=== PATIENT | male | born 1975 | race Caucasian/White ===

== ENCOUNTER → 2020-11-25 14:13 | Outpatient (BNVA) | payer OTHER, SELFPAY | PROVIDERS: Family Provider Family Medicine; PCP Family Medicine; Visit Provider Registered Nurse Neonatal Intensive Care | DX: N39.0 Urinary tract infection, site not specified (principal); N12 Tubulo-interstitial nephritis, not specified as acute or chronic; R11.0 Nausea | CPT/HCPCS: 81000 ==

== ENCOUNTER 2020-12-16 14:53 | Observation (INO) | payer OTHER, SELFPAY ==
[2020-12-16] VITALS (7 sets, daily range): BP systolic 129–189; BP diastolic 84–98; PULSE 88–110; RESP 18–20; TEMP 36.9–37.1; O2SAT 93–94; BMI 38.5
[2020-12-16 15:15] LABS: Glucose Urine UA Norm (Normal); Protein Urine 1+ (Negative); Urine Appearance Cloudy (CLEAR); Urine Color Yellow (Yellow); pH Urine 7 (5-7)
[2020-12-16 15:16] LABS: Add Urine Microscopic? YES; Bilirubin Urine Neg (Negative); Blood Urine 2+ (Negative); Ketones Urine Negative (Negative); Leukocyte Esterase Urine 2+ (Negative); Nitrate Urine Positive (Negative); Urobilinogen Urine Norm (Negative)
[2020-12-16 15:21] LABS: Bacteria Urine 2+ /hpf; Squamous Epithelial Cell Urine 0-4 /hpf (0-5); WBC Urine TOO NUMEROUS TO CNT /hpf (0-5)
[2020-12-16 15:22] LABS: Add Urine Culture? Yes
[2020-12-16 15:47] LABS: Basophils # 0.1 10^3/uL (0.0-0.1); Basophils % 0.3 %; Eosinophils # 0.1 10^3/uL (0.0-0.8); Eosinophils % 0.3 %; Hematocrit 46.5 % (42.0-52.0); Hemoglobin 15.7 g/dL (11.7-16.6); Lymphocytes # 3.2 10^3/uL (0.8-4.8); Lymphocytes % 11.9 %; Mean Corpuscular HGB Conc 33.8 g/dL (30.0-36.0); Mean Corpuscular Hemoglobin 28.9 pg (28.0-34.0); Mean Corpuscular Volume 85.5 fL (80-94); Mean Platelet Volume 10.1 fL (7.4-10.4); Monocytes # 1.6 10^3/uL (0.2-0.9); Neutrophils # 21.62 10^3/uL (1.8-7.7); Neutrophils % 80.9 %; Nucleated Red Blood Cells % 0 %; Platelet Count 331 10^3/cmm (130-400); Red Blood Count 5.44 10^6/uL (4.1-5.3); Red Cell Distribution Width 13.1 % (12.1-15.1); White Blood Count 26.7 10^3/uL (4.0-10.0)
[2020-12-16 16:13] LABS: Anion Gap 15.8 (5-19); Blood Urea Nitrogen 12 mg/dL (6-20); Calcium 9.1 mg/dL (8.5-10.5); Carbon Dioxide 30 mmol/L (22-29); Chloride 94 mmol/L (98-107); Creatinine Clr Calc Pharmacy 155.3066; Glomerular Filtration Rate 92.1 mL/min (90-130); Glucose 170 mg/dL (65-115); Osmolality Calculated 288 mOsm/kg (285-295); Sodium 137 mmol/L (136-145)
[2020-12-16 16:19] LABS: Potassium 2.8 mmol/L (3.5-5.1)
--- NOTE | 2020-12-16 16:28 | CTR_ITS ---
PROCEDURE INFORMATION: Exam: CT Abdomen And Pelvis Without Contrast Exam date and time: 12/16/2020 4:29 PM Age: 45 years old Clinical indication: Abdominal pain; Flank; Other: Bilateral; Prior surgery; Surgery type: Hernia; Additional info: Flank pain TECHNIQUE: Imaging protocol: Computed tomography of the abdomen and pelvis without contrast. Radiation optimization: All CT scans at this facility use at least one of these dose optimization techniques: automated exposure control; mA and/or kV adjustment per patient size (includes targeted exams where dose is matched to clinical indication); or iterative reconstruction. COMPARISON: No relevant prior studies available. RADIATION DOSE METRICS: Total DLP (mGy-cm): 2019.72 FINDINGS: Liver: Simple hepatic cyst in the dome 2 cm diameter. No liver enlargement. Gallbladder and bile ducts: Normal. No calcified stones. No ductal dilation. Pancreas: Normal. No ductal dilation. Spleen: Normal. No splenomegaly. Adrenal glands: Incidental circumscribed mass of the left adrenal gland with low density Hounsfield units averaging significantly less than 10. The lesion measures 2.6 cm x 2.4 cm. Kidneys and ureters: Bilateral nonobstructing kidney stones greater on left than right. Incidental finding of small simple left renal cortical cyst. Negative for hydronephrosis or perinephric inflammation. Stomach and bowel: Unremarkable. No obstruction. No mucosal thickening. Appendix: No evidence of appendicitis. Intraperitoneal space: Unremarkable. No free air. No significant fluid collection. Vasculature: Unremarkable. No abdominal aortic aneurysm. Lymph nodes: Unremarkable. No enlarged lymph nodes. Urinary bladder: Unremarkable as visualized. Reproductive: Unremarkable as visualized. Bones/joints: Unremarkable. No acute fracture. Soft tissues: Focal surgical changes of left groin soft tissues. Small fat containing umbilical hernia. Lumbar paraspinal muscles are symmetric. CT/CT abdomen pelvis wo con [id number] IMPRESSION: 1. Negative for abdominopelvic acute pathology. 2. Incidental finding of a small left adrenal gland mass with noncontrast CT features consistent with benign adrenal adenoma. No dedicated follow-up is recommended. 3. Simple liver cyst. 4. Simple left renal cyst. 5. Bilateral kidney stones without obstruction. COMMENTS: Consistent with the [employer]'s Incidental Findings Committee white paper (J Am Alissa Radiol 2018): Any incidental renal lesion less than 1 cm or classified as too small to characterize, or any incidental cystic renal lesion characterized as simple-appearing, is likely benign. No follow-up imaging is recommended for these lesions per consensus recommendations based on imaging criteria. Radiation Dose CTDIVOL = (mGy): DLP = 2020.72 (mGy-cm)
--- NOTE | 2020-12-16 16:37 | ED_ITS ---
HPI - Male Genitourinary General: Chief complaint: Urogenital-Male Stated complaint: Poss Kidney Stones, Trouble Urinating Time Seen by Provider: 12/16/20 16:02 History of Present Illness: HPI Narrative: This patient is a 45-year-old male who presents to the emergency department complaint of bilateral flank pain. Patient does have a long history of back issues but states this is different. Last week the patient was diagnosed with a kidney infection was started on Cipro and given nausea medication. Tramadol patient states he seems to be getting worse patient denies fever. The medical evaluation treat as needed Duration: constant Radiation: right flank and left flank Severity: moderate Quality: aching and sharp Exacerbating factors: none Associated symptoms: Deny dysuria, nausea or vomiting Review of Systems General: Reports: 10 or more systems reviewed and unremarkable except in HPI and below Const: Denies: fever(s), chills, body aches or fatigue Eyes: Denies: change in vision or blurry vision ENMT: Denies: throat pain, hoarseness or mouth pain Card: Denies: chest pain, palpitations, irregular heart rhythm, edema, swelling of feet/ankles or lightheadedness Resp: Denies: dyspnea, productive cough, non-productive cough, wheezing or pain on inspiration GI: Reports: abdominal pain; Denies: nausea or vomiting : Reports: flank pain; Denies: dysuria, urinary frequency, urinary urgency or urinary hesitancy Musc: Denies: neck pain, back pain, extremity pain, extremity swelling, joint pain, joint swelling, joint redness, joint warmth or limited range of motion Skin/Breast: Denies: rash, pruritus, erythema or skin tenderness Neuro: Denies: headache(s), numbness in extremities or weakness in extremities Psych: Denies: anxiety or depression [facility] ED PFSH: Medical History (Updated 12/16/20 @ 17:36 by Wilmer Devlin MD) Anxiety and depression Constipation due to opioid therapy Obesity (BMI 35.0-39.9 without comorbidity) Pyelonephritis Uncontrolled hypertension Surgical History (Updated 11/28/20 @ 09:39 by Chava Paniagua MD) H/O hernia repair Family History (Updated 11/28/20 @ 09:15 by Becca Judge LPN) Other Cancer Diabetes Hypertension Social History (Updated 11/28/20 @ 09:16 by STEPHANY Craig Smoking and tobacco status: current every day smoker cigarettes Packs smoked per day: 1.5 Alcohol intake: current Alcohol intake frequency: 0-2 Drinks per Day Marital status: Number of children: 4 Number of grandchildren: 0 Current occupational status: employed Physical Exam Const: COMMON NORMALS: no acute distress, average body habitus, patient oriented x3, no limitations, healthy appearing, alert and well nourished HENMT: COMMON NORMALS: normocephalic, atraumatic, external ears normal, EAC's normal, TM's normal bilaterally, Normal external nose present and Normal nasal mucous membranes and turbinates present HEAD & SCALP: normocephalic and atraumatic NOSE: Normal external nose present and Normal nasal mucous membranes and turbinates present EXTERNAL EAR: Yes external ears normal EXTERNAL AUDITORY CANAL: EAC's normal TYMPANIC MEMBRANE: TM's normal bilaterally Neck/C-Spine: COMMON NORMALS: full ROM, no lymphadenopathy, supple, no meningeal signs, no JVD, Thyroid normal and No carotid bruits THYROID: Thyroid normal Chest: COMMONS NORMALS: normal inspection of the chest, normal palpation of entire chest wall, normal inspection of the breasts and normal palpation of the breasts Breast/axilla inspection: Yes normal inspection of the breasts BREAST/AXILLA PALPATION: Yes normal palpation of the breasts Resp: COMMON NORMALS: normal respiratory effort, No retractions, No use of accessory muscles, clear to auscultation bilaterally and percussion normal AUSCULTATION: clear to auscultation bilaterally PERCUSSION: percussion normal Cardio: COMMON NORMALS: no JVD, regular rate, regular rhythm, S1 normal heart sound present, S2 normal heart sound present, No gallops present (Cardio), No clicks present (Cardio), No murmurs present (Cardio), No rub (Cardio) and Peripheral pulses 2+ throughout RATE: regular rate RHYTHM: regular rhythm HEART SOUNDS: S1 normal heart sound present and S2 normal heart sound present PERIPHERAL PULSES: Peripheral pulses 2+ throughout GI: COMMON NORMALS: Normal to inspection, nondistended, normoactive bowel sounds present, non-tender, No hepatosplenomegaly present, no masses and no bruits PALPATION: Yes No hepatosplenomegaly present : COMMON NORMALS: No no CVA tenderness BLADDER/KIDNEY EXAM: No no CVA tenderness and Yes CVA tenderness on the right, on the left and bilateral Back/Pelvis: COMMON NORMALS: thoracic and lumbar spine normal to inspection, no thoracic nor lumbar tenderness, thoraco-lumbar ROM normal and straight leg raise negative bilaterally; negative for no CVA tenderness GENERAL BACK: Yes CVA tenderness Extremity: COMMON NORMALS: normal to inspection, full ROM, capillary refill normal, no joint enlargement, no clubbing, cyanosis or edema, no calf tenderness and no pedal edema Neuro: COMMON NORMALS: patient oriented x3 SENSORIUM/ORIENTATION: Yes alert MENINGEAL SIGNS: Yes no meningeal signs Course Reevaluation(s): Reevaluation #1: I did discuss at length with patient and family about findings and concerns. Patient will have an IV antibiotics continued. And will give additional pain medication. Patient will have an in and out cath to see if we can get more urine out of the patient. Concerning for possible an outlet obstruction causing urinary tract infection in this patient. Patient states that he is agreeable to be admitted Time: 17:34 Consultations: Consultation #1: I did discuss at length with Dr. Nagel hospitalist who agrees with current assessment and plan. She will continue IV antibiotics. She will see patient write additional orders Time: 17:33 Vital Signs: Vital signs: Vital Signs Temperature 98.7 F 12/16/20 19:22 Pulse Rate 88 12/16/20 19:22 Respiratory Rate 18 12/16/20 19:22 Blood Pressure 152/98 12/16/20 19:22 Pulse Oximetry 94 12/16/20 19:22 MDM - Male MDM Narrative: Medical decision making narrative: This patient is a 45-year-old male who presents to the emergency department complaint of bilateral flank pain. Patient does have a long history of back issues but states this is different. Last week the patient was diagnosed with a kidney infection was started on Cipro and given nausea medication. Tramadol patient states he seems to be getting worse patient denies fever. The medical evaluation treat as needed I did discuss at length with patient and family about findings and concerns. Patient will have an IV antibiotics continued. And will give additional pain medication. Patient will have an in and out cath to see if we can get more urine out of the patient. Concerning for possible an outlet obstruction causing urinary tract infection in this patient. Patient states that he is agreeable to be admitted I did discuss at length with Dr. Nagel hospitalist who agrees with current assessment and plan. She will continue IV antibiotics. She will see patient write additional orders Medical Records: Attestation: I reviewed the patient's medical records. Lab Data: Attestation: I reviewed the patient's lab results. Labs: Lab Results 12/16/20 12/16/20 12/16/20 Range/Units 15:05 15:26 15:26 WBC 26.7 H (4.0-10.0) 10^3/ uL RBC 5.44 H (4.1-5.3) 10^6/u L Hgb 15.7 (11.7-16.6) g/dL Hct 46.5 (42.0-52.0) % MCV 85.5 (80-94) fL MCH 28.9 (28.0-34.0) pg MCHC 33.8 (30.0-36.0) g/dL RDW 13.1 (12.1-15.1) % Plt Count 331 (130-400) 10^3/c mm MPV 10.1 (7.4-10.4) fL Neut % (Auto) 80.9 % Lymph % (Auto) 11.9 % Maries % (Auto) 6.0 % Eos % (Auto) 0.3 % Baso % (Auto) 0.3 % Neut # (Auto) 21.62 H (1.8-7.7) 10^3/u L Lymph # (Auto) 3.2 (0.8-4.8) 10^3/u L Maries # (Auto) 1.6 H (0.2-0.9) 10^3/u L Eos # (Auto) 0.1 (0.0-0.8) 10^3/u L Baso # (Auto) 0.1 (0.0-0.1) 10^3/u L Nucleated RBC % (a uto) 0 % Nucleated RBCs # 0.0 /100WBC Sodium 137 (136-145) mmol/L Potassium 2.8 L* (3.5-5.1) mmol/L Chloride 94 L (98-107) mmol/L Carbon Dioxide 30 H (22-29) mmol/L Anion Gap 15.8 (5-19) BUN 12 (6-20) mg/dL Creatinine 0.9 (0.7-1.2) mg/dL GFR Calculation 92.1 (90-130) mL/min Glucose 170 H (65-115) mg/dL Calculated Osmolal ity 288 (285-295) mOsm/k g Calcium 9.1 (8.5-10.5) mg/dL Urine Color Yellow (Yellow) Urine Appearance Cloudy (CLEAR) Urine pH 7 (5-7) Ur Specific Gravit y 1.010 (1.005-1.030) Urine Protein 1+ H (Negative) Urine Glucose (UA) Norm (Normal) Urine Ketones Negative (Negative) Urine Blood 2+ H (Negative) Urine Nitrate Positive H (Negative) Urine Bilirubin Neg (Negative) Urine Urobilinogen Norm (Negative) mg/dL Ur Leukocyte Bernie ase 2+ H (Negative) Urine RBC 5-10 H (0-2) /hpf Urine WBC Too numerous to c nt H (0-5) /hpf Ur Squamous Epith Cells 0-4 H (0-5) /hpf Amorphous Sediment Not Reportable Urine Bacteria 2+ H (NONE) /hpf Imaging Data: CT Abd/Pel: Attestation: I personally reviewed and interpreted this imaging study as follows: Radiologist's impression: IMPRESSION: 1. Negative for abdominopelvic acute pathology. 2. Incidental finding of a small left adrenal gland mass with noncontrast CT features consistent with benign adrenal adenoma. No dedicated follow-up is recommended. 3. Simple liver cyst. 4. Simple left renal cyst. 5. Bilateral kidney stones without obstruction. Discharge Plan Discharge Patient Disposition: Placed in Observation Admit Provider: Sarah Nagel Clinical Impression: Pyelonephritis Coding Level of Care Code ED Interlocking Machine Operator for g Fwd Exam Comprehensive
--- NOTE | 2020-12-16 16:45 | PC.PHAR ---
pt states he takes care of his own medications-pt states he finished cipro last week-pt states he took half of a tab of a norco today 12/16/20 that was one of his old rxs and is unsure of the mg-pt had rx written on 11/28/20 for docusate 250mg bid but states he never got-pt states he took ultram 12/15/20 and that it doesnt work
[2020-12-16] MEDS: potassium chloride ER 20 mEq Tablet PO (16:47)
[2020-12-16] MEDS: ketorolac 30 mg/mL INJ IVP (16:48)
[2020-12-16] MEDS: cefTRIAXone 1,000 MG in sodium chloride 0.9% (plus) 50 ML 100 MG IV (16:48)
[2020-12-16] MEDS: lactated ringers 1,000 ML 999 ML IV (16:48)
[2020-12-16] MEDS: morphine 4 mg/mL SDV 1 mL IVP (17:57)
--- NOTE | 2020-12-16 19:21 | XRR_ITS ---
PROCEDURE INFORMATION: Exam: XR Chest Exam date and time: 12/16/2020 7:41 PM Age: 45 years old Clinical indication: Fever; Additional info: Fever. Source evaluation TECHNIQUE: Imaging protocol: XR of the chest. Views: 1 view. COMPARISON: CR Chest 2 views* [id number] 01/15/2015 1:39 PM FINDINGS: Lungs: No consolidation. Streaky atelectasis noted in the right lung base. No pleural effusion or pneumothorax. Pleural spaces: See Lungs finding. Heart/Mediastinum: Stable cardiomediastinal silhouette. Bones/joints: Unremarkable. XR/XR chest 1V portable [id number] IMPRESSION: No evidence of active cardiopulmonary disease.
--- NOTE | 2020-12-16 19:26 | PM.HP ---
Providers/Chief Complaint Admitting Physician: Sarah Nagel MD Primary Care Provider: Chava Paniagua MD Chief Complaint: Poss Kidney Stones, Trouble Urinating History of Present Illness Ethan Nickerson is a 45 year old male with PMH as noted below with recent history of pyelonephritis in mid november treated as outpatient with 2 weeks of empiric fluoroquinolones. HE presnted today with burning micturition, back pain, leukocytosis of ~25K and is being admitted due to concern for recurrent pyelonephritis Review of Systems General: Reports: 10 or more systems reviewed and unremarkable except in HPI and below Const: Denies: fever(s), chills or body aches Eyes: Denies: change in vision, blurry vision or photophobia ENMT: Reports: hoarseness; Denies: throat pain, enlarged tonsils, odynophagia or nasal congestion Card: Denies: chest pain, palpitations, irregular heart rhythm, edema, swelling of feet/ankles, lightheadedness, pre-syncope, dyspnea on exertion or orthopnea Resp: Denies: dyspnea, productive cough, non-productive cough, wheezing, stridor, pain on inspiration, change in phlegm color, hemoptysis or chest congestion GI: Denies: abdominal pain, nausea, vomiting, hematemesis, coffee ground emesis, dysphagia, heartburn, diarrhea, constipation, GI cramping, change in stool character, hematochezia or melena : Denies: flank pain, dysuria, urinary frequency, urinary urgency, urinary hesitancy or hematuria Musc: Denies: neck pain, back pain, extremity pain, joint swelling, joint warmth or deformity Neuro: Denies: headache(s), numbness in extremities, weakness in extremities, sensory changes, difficulty walking, frequent falls, dizziness, vertigo, behavioral changes, Slurred speech present or seizure-like activity Psych: Denies: anxiety, depression, suicidal ideation or homicidal ideation Endo: Denies: polyuria, polydipsia, tired all the time, cold intolerance or hot flashes Leonel/Lymph: Denies: easy bruising or easy bleeding Medications/Allergies Home Medications Medication Instructions Recorded Confirmed Last Taken Type ondansetron HCl 4 mg tablet 4 mg PO Q6H PRN #20 tab 11/25/20 12/16/20 Unknown Rx tramadol 50 mg tablet 50 mg PO Q6H #20 tab 11/25/20 12/16/20 12/15/20 Rx 100 mg [place] See Rx Instructions .ROUTE .COMPLEX 12/16/20 12/16/20 12/16/20 05:00 History lisinopril-hydrochlorothiazide 1 tab PO QAM 12/16/20 12/16/20 12/16/20 10:00 History naproxen sodium [Aleve] 440 mg PO PRN 12/16/20 12/16/20 Unknown History sertraline 100 mg PO QAM 12/16/20 12/16/20 12/16/20 History Allergies Allergy/AdvReac Type Severity Reaction Status Date / Time codeine Allergy rash Verified 12/16/20 16:39 Penicillins Allergy rash Verified 12/16/20 16:39 PFSH Acute PFSH: Medical History Anxiety and depression Constipation due to opioid therapy Obesity (BMI 35.0-39.9 without comorbidity) Pyelonephritis Uncontrolled hypertension Surgical History H/O hernia repair Family History Other Cancer Diabetes Hypertension Social History Smoking and tobacco status: current every day smoker cigarettes Packs smoked per day: 1.5 Alcohol intake: current Alcohol intake frequency: 0-2 Drinks per Day Marital status: Number of children: 4 Number of grandchildren: 0 Current occupational status: employed Vitals/I&O/Wt Last Vital Signs Temp 98.5 F 12/16/20 15:43 Pulse 90 12/16/20 18:45 Resp 20 H 12/16/20 18:45 BP 129/90 12/16/20 18:45 Pulse Ox 94 12/16/20 18:45 12/16/20 12/16/20 12/16/20 06:59 14:59 22:59 Intake Total 1050 / 1050 Balance 1050 / 1050 Weight last 48 hrs Weight 136.078 kg Physical Exam Narrative: EXAM NARRATIVE: General: No acute distress, AO x3 HEENT: PERRLA, pupils bilaterally equal and reactive, pallors not present Chest: Normal vesicular breath sounds, no added sounds, equal good air entry bilaterally CVS: S1-S2 regular, no murmurs, no tachycardia, no gallops, no rubs Abdomen: Soft, nontender, no organomegaly, bowel sounds present Neuro: No focal deficits, no facial deformity, AO x3, power 5/5 in all limbs Data : 12/17/20 05:01 12/17/20 05:01 Micro: Microbiology 12/16/20 16:48 Blood Culture - Preliminary Blood SPECIMEN COLLECTED 12/16/20 16:35 Blood Culture - Preliminary Blood SPECIMEN COLLECTED A&P Assessment and plan (1) Pyelonephritis: recent pyelonephritis treated empirically Recurrent symptom stoday UA+, urine cx pending No recent urine cx available in system CT abdomen without any obstruction Odd for 45 year old male with normal underlying anatomy to have recurrent episodes of pyelonephritis in close succession - concerned about possible prostatitis as the underlying cause of persisting symptoms. Check urine GC/Chlamydia, HIV screen, diabetes screen Status: Acute Attestations Medical Necessity Statement*: anticipate less than 2 midnight stay for iv abx, cultures Coding Level of Care Code Acute Ethnic Studies Professor for g Fwd Diagnoses Pyelonephritis N12
[2020-12-16] MEDS: dextrose 5%-sod chloride 0.45% 1,000 ML 75 ML IV (20:57)
--- NOTE | 2020-12-16 21:06 | PC.NURSE ---
Addendum entered by Velia Best RN 12/16/20 21:08: Asked the pt if he had any cigarettes or a car mover on him and he said that his had them. Original Note: Smoking Policy: During admission assessment the pt stated that he was going to sneak out later for a smoke . Educated the pt on the hospital non-smoking policy. Pt verbalized understanding. Offered a nicotine patch and he accepted.
[2020-12-16] MEDS: HYDROcodone-acetaminophen 5-325 mg Tablet 1 TAB PO (22:25)
[2020-12-16] MEDS: nicotine 21 mg Patch 1 PATCH TRANSDERMA (22:25)
[2020-12-16] MEDS: lidocaine 1% 5 ML in potassium chloride premix 100 ML 25 ML IV (23:39)
[2020-12-17] VITALS (11 sets, daily range): BP systolic 158–177; BP diastolic 95–120; PULSE 73–87; RESP 1–18; TEMP 36.3–37; O2SAT 93–96
[2020-12-17 05:41] LABS: Basophils # 0.1 10^3/uL (0.0-0.1); Basophils % 0.5 %; Eosinophils # 0.3 10^3/uL (0.0-0.8); Eosinophils % 1.8 %; Hematocrit 42.7 % (42.0-52.0); Lymphocytes % 23.4 %; Mean Corpuscular HGB Conc 32.8 g/dL (30.0-36.0); Mean Corpuscular Hemoglobin 29.3 pg (28.0-34.0); Mean Corpuscular Volume 89.3 fL (80-94); Mean Platelet Volume 10.4 fL (7.4-10.4); Monocytes # 1.2 10^3/uL (0.2-0.9); Monocytes % 7.1 %; Neutrophils # 11.34 10^3/uL (1.8-7.7); Neutrophils % 66.7 %; Nucleated Red Blood Cells % 0 %; Platelet Count 269 10^3/cmm (130-400); Red Blood Count 4.78 10^6/uL (4.1-5.3); Red Cell Distribution Width 13.2 % (12.1-15.1)
[2020-12-17 06:04] LABS: Alanine Aminotransferase 10 U/L (0-41); Albumin Level 3.4 g/dL (3.5-5.2); Alkaline Phosphatase 79 IU/L (40-130); Anion Gap 11.1 (5-19); Aspartate Amino Transferase 10 U/L (0-40); Blood Urea Nitrogen 15 mg/dL (6-20); Calcium 8.5 mg/dL (8.5-10.5); Carbon Dioxide 31 mmol/L (22-29); Chloride 98 mmol/L (98-107); Glomerular Filtration Rate 105.5 mL/min (90-130); Glucose 201 mg/dL (65-115); Osmolality Calculated 291 mOsm/kg (285-295); Potassium 3.1 mmol/L (3.5-5.1); Sodium 137 mmol/L (136-145); Total Bilirubin 0.3 mg/dL (0.15-1.2); Total Protein 6.4 g/dL (6.6-8.7)
[2020-12-17 06:13] LABS: HIV 1 & 2 Antibody Non-Reactive (Non-Reactiv); HIV 1 & 2 Antigen Non-Reactive (Non-Reactiv)
--- NOTE | 2020-12-17 07:42 | PC.NURSE ---
Dr. Nagel notified of patients manual blood pressure of 177/110. Orders received to start home blood pressure medication. Medication given
[2020-12-17] MEDS: lisinopril 20 mg Tablet PO (07:59)
[2020-12-17] MEDS: hydroCHLOROthiazide 25 mg Tablet 12.5 MG PO (07:59)
[2020-12-17] MEDS: nicotine 21 mg Patch 1 PATCH TRANSDERMA (08:01)
[2020-12-17] MEDS: HYDROcodone-acetaminophen 5-325 mg Tablet 1 TAB PO ×2 (10:51→19:55)
[2020-12-17] MEDS: dextrose 5%-sod chloride 0.45% 1,000 ML 75 ML IV (10:51)
--- NOTE | 2020-12-17 11:31 | P.PN_ITS ---
Subjective Subjective: Interval history: Leukocytosis reducing to 17 today, afberil, hemodynamically stable, urine cx pending, uncontrolled BP at 170/120 today in spite of lisinopril-HCTZ Medications: Reviewed: Yes Vitals/I&O/Wt Last Vital Signs Temp 97.9 F 12/17/20 11:16 Pulse 76 12/17/20 11:16 Resp 17 12/17/20 11:16 BP 160/110 12/17/20 08:26 Pulse Ox 95 12/17/20 11:16 12/16/20 12/17/20 12/17/20 22:59 06:59 14:59 Intake Total 1050 / 1050 1225 / 2275 150 / 150 Output Total 200 / 200 600 / 800 1800 / 1800 Balance 850 / 850 625 / 1475 -1650 / -1650 Weight last 48 hrs Weight 136.078 kg Physical Exam Narrative: EXAM NARRATIVE: General: No acute distress, AO x3 HEENT: PERRLA, pupils bilaterally equal and reactive, pallors not present Chest: Normal vesicular breath sounds, no added sounds, equal good air entry bilaterally CVS: S1-S2 regular, no murmurs, no tachycardia, no gallops, no rubs Abdomen: Soft, nontender, no organomegaly, bowel sounds present Neuro: No focal deficits, no facial deformity, AO x3, power 5/5 in all limbs Data : 12/17/20 05:01 12/17/20 05:01 Micro: Microbiology 12/16/20 16:48 Blood Culture - Preliminary Blood SPECIMEN COLLECTED 12/16/20 16:35 Blood Culture - Preliminary Blood SPECIMEN COLLECTED A&P Assessment and plan (1) Pyelonephritis: recent pyelonephritis treated empirically recently Currently on empiric ceftriaxone, pending urine cultue No recent urine cx available in system CT abdomen without any obstruction Odd for 45 year old male with normal underlying anatomy to have recurrent episodes of pyelonephritis in close succession -B/L non obstructing kidney stones noted, concerned about antibiotic resistance to fluoroquinolones vs possible prostatitis as the underlying cause of persisting symptoms. urine GC/Chlamydia non reactive HIV screen, diabetes screen Status: Acute (2) Uncontrolled hypertension: Add amlodipine 10mg po daily, starting now Status: Acute Attestations Medical Necessity Statement*: awaiting urine culture results to ascertain choice of po antibiotics prior to discharge home. Coding Level of Care Code Acute Human Resource Assistant for g Fwd Diagnoses Pyelonephritis N12 Uncontrolled hypertension I10
--- NOTE | 2020-12-17 11:40 | PC.NURSE ---
Dr. Nagel notified that patient's blood pressure is 170/100 manually. No new orders received.
[2020-12-17] MEDS: potassium chloride ER 20 mEq Tablet 40 MEQ PO (12:03)
[2020-12-17] MEDS: TRAMadol 50 mg Tablet PO (14:53)
[2020-12-17] MEDS: amlodipine 10 mg Tablet PO (16:02)
[2020-12-17] MEDS: ibuprofen 800 mg tablet PO (16:05)
[2020-12-17] MEDS: cefTRIAXone 1,000 MG in sodium chloride 0.9% (plus) 50 ML 100 MG IV (16:06)
[2020-12-17 16:21] LABS: Estmated Average Glucose 154
--- NOTE | 2020-12-17 19:21 | PC.NURSE ---
Report to Crissy FORTUNE at this time.
[2020-12-18] MEDS: HYDROcodone-acetaminophen 5-325 mg Tablet 1 TAB PO ×2 (02:39→12:40)
[2020-12-18 03:21] VITALS: BP 157/94; PULSE 67; RESP 18; TEMP 36.4; O2SAT 95
[2020-12-18] MEDS: sertraline 100 mg Tablet PO (06:03)
[2020-12-18 06:09] LABS: Basophils # 0.1 10^3/uL (0.0-0.1); Eosinophils # 0.5 10^3/uL (0.0-0.8); Eosinophils % 4.5 %; Hematocrit 44.6 % (42.0-52.0); Hemoglobin 14.5 g/dL (11.7-16.6); Lymphocytes # 3.9 10^3/uL (0.8-4.8); Lymphocytes % 36.8 %; Mean Corpuscular HGB Conc 32.5 g/dL (30.0-36.0); Mean Corpuscular Hemoglobin 28.9 pg (28.0-34.0); Mean Platelet Volume 10.1 fL (7.4-10.4); Monocytes # 0.8 10^3/uL (0.2-0.9); Monocytes % 7.9 %; Neutrophils # 5.17 10^3/uL (1.8-7.7); Neutrophils % 49.2 %; Nucleated Red Blood Cells % 0 %; Platelet Count 273 10^3/cmm (130-400); Red Blood Count 5.01 10^6/uL (4.1-5.3); White Blood Count 10.5 10^3/uL (4.0-10.0)
[2020-12-18 06:28] LABS: Alanine Aminotransferase 14 U/L (0-41); Albumin Level 3.4 g/dL (3.5-5.2); Alkaline Phosphatase 68 IU/L (40-130); Anion Gap 12.7 (5-19); Aspartate Amino Transferase 11 U/L (0-40); Blood Urea Nitrogen 10 mg/dL (6-20); Calcium 8.6 mg/dL (8.5-10.5); Carbon Dioxide 30 mmol/L (22-29); Chloride 102 mmol/L (98-107); Globulin 3.2 g/dL (1.3-4.6); Glucose 112 mg/dL (65-115); Osmolality Calculated 292 mOsm/kg (285-295); Potassium 3.7 mmol/L (3.5-5.1); Sodium 141 mmol/L (136-145); Total Bilirubin 0.4 mg/dL (0.15-1.2); Total Protein 6.6 g/dL (6.6-8.7)
[2020-12-18 07:16] VITALS: BP 180/128; PULSE 75; RESP 16; TEMP 36.4; O2SAT 95
[2020-12-18] MEDS: hydroCHLOROthiazide 25 mg Tablet 12.5 MG PO (08:19)
[2020-12-18] MEDS: amlodipine 10 mg Tablet PO (08:19)
[2020-12-18] MEDS: lisinopril 20 mg Tablet PO (08:19)
[2020-12-18] MEDS: famotidine 20 mg Tablet PO (08:19)
[2020-12-18] MEDS: nicotine 21 mg Patch 1 PATCH TRANSDERMA (08:20)
[2020-12-18 09:24] VITALS: BP 180/110; PULSE 78; RESP 15; TEMP 36.3; O2SAT 96
[2020-12-18 11:33] VITALS: BP 180/110; PULSE 78; RESP 15; TEMP 36.3; O2SAT 95
[2020-12-18 11:38] VITALS: BP 183/109; PULSE 73; RESP 16; TEMP 36.8; O2SAT 95
--- NOTE | 2020-12-18 13:41 | P.DS_ITS ---
Discharge Providers Date of Admission: 12/16/20 17:37 Date of Discharge: December 18, 2020 Attending Provider at Admission: Sarah Nagel MD Attending Provider at Discharge: Sarah Nagel MD Primary Care Provider: Chava Paniagua MD Diagnoses at Discharge Discharge Diagnosis (1) Pyelonephritis: Status: Acute (2) Uncontrolled hypertension: Status: Acute Reason for Visit Reason for Visit: Poss Kidney Stones, Trouble Urinating Hospital Course Hospital Course Ethan Nickerson is a 45 year old male with PMH HTN, recently treated for pyelonephritis in mid november as outpatient with 2 weeks of empiric fluoroquinolones. HE presented with burning micturition, back pain, leukocytosis of ~25K and was admitted due to concern for recurrent pyelonephritis. He was treated with empiric ceftriaxone with improvement in symptoms, leukocytosis trended down to 10 at discharge. Prelim urine cx shows GNR, indole +, likely E.coli, however final identification and susceptibility remains pending at discharge. Since he is clinically imprpved, he is being discharged today with po ciprofloxacin 500mg BID. Recommend follow up with urology as outpatient in the next 2 weeks given recurrent complicated UTI in young male in the absence of known anatomical risk factors. Ct abdomen with non obstructing kidney stones. Other possibilities for recurrence include possible prostatitis in which case he will require longer duration of treatment. Antibiotic failure remains another possibility, however difficult to know in the absence of urine culture from first episode. Urine Gc/Chlamydia NAAT negative. Screening Hba1c at 7, consistent with new diagnosis of DM, follow up with PCP for the same. F/up with PCP in 2-3 days to follow up on results of urine cx, urology as noted above Physical Exam Narrative: EXAM NARRATIVE: GEN: Awake, alert and oriented, no acute distress CVS: S1S2 N RS: CTA B/L Abd: Soft, nt/nd , bs+ METALLURGICAL LABORATORY ASSISTANT: no focal neuro deficits Discharge Data Data Completed and Pending: Completed Studies During Hospitalization Category Date Time Status CT abdomen pelvis wo con [id number] Stat Cat Scan 12/16/20 16:28 Completed XR chest 1V sulema ble [id number] Routine Exams 12/16/20 19:21 Completed Pending at discharge Category Date Time Status Blood Culture Sta t Lab 12/16/20 16:48 Results Urine Culture Sta t Lab 12/16/20 15:05 Results Labs from last 24 hours 12/18/20 12/18/20 12/17/20 05:50 05:50 05:01 WBC 10.5 H RBC 5.01 Hgb 14.5 Hct 44.6 MCV 89.0 MCH 28.9 MCHC 32.5 RDW 13.0 Plt Count 273 MPV 10.1 Neut % (Auto) 49.2 Lymph % (Auto) 36.8 [place] % (Auto) 7.9 Eos % (Auto) 4.5 Baso % (Auto) 1.0 Neut # (Auto) 5.17 Lymph # (Auto) 3.9 [place] # (Auto) 0.8 Eos # (Auto) 0.5 Baso # (Auto) 0.1 Nucleated RBC % (a uto) 0 Nucleated RBCs # 0.0 Sodium 141 Potassium 3.7 Chloride 102 Carbon Dioxide 30 H Anion Gap 12.7 BUN 10 Creatinine 0.6 L GFR Calculation 147.0 H Glucose 112 Estimat Average Gl ucose 154 Hemoglobin A1c 7.0 H Calculated Osmolal ity 292 Calcium 8.6 Total Bilirubin 0.4 AST 11 ALT 14 Alkaline Phosphata se 68 Total Protein 6.6 Albumin 3.4 L Globulin 3.2 Vitals: Last Vital Signs Temp 98.2 F 12/18/20 11:38 Pulse 73 12/18/20 11:38 Resp 16 12/18/20 11:38 BP 183/109 12/18/20 11:38 Pulse Ox 95 12/18/20 11:38 Discharge Plan Discharge Patient Disposition: Home Condition: Stable Prescriptions: New amlodipine 10 mg Tablet 10 mg PO DAILY 30 Days Qty: 30 RF: 0 Cipro 500 mg tablet 500 mg PO BID 15 Days Qty: 30 RF: 0 Continued ondansetron HCl [Zofran] 4 mg tablet 4 mg PO Q6H PRN (Reason: nausea and vomiting) Qty: 20 RF: 0 tramadol 50 mg tablet 50 mg PO Q6H Qty: 20 RF: 0 Aleve 220 mg Tablet 440 mg PO PRN RF: 0 [place] See Rx Instructions .ROUTE .COMPLEX RF: 0 lisinopril-hydrochlorothiazide 20-12.5 mg tablet 1 tab PO QAM RF: 0 sertraline 100 mg tablet 100 mg PO QAM RF: 0 Discharge Orders: Discharge Order (Routine); Ordered 12/18/20 Ordered By: Sarah Kathuria Referrals: Chava Paniagua MD [Primary Care Provider] - 12/24/20 9:30 am () Jovanny Cedillo MD [Physician] - 01/01/21 8:00 am Discharge Diet: Usual diet Discharge Activity: Resume usual activity Patient Instructions: Ciprofloxacin (By mouth), Amlodipine (By mouth), Acute Pyelonephritis (GEN), Chronic Hypertension (DC), Opioid Safety Discharge Attestations Time Spent in Discharge Care*: greater than 30 min Quality Metrics Clinical Quality Measures During this hospital stay, did patient experience: None Coding Level of Care Code Acute Chg FW DC note Diagnoses Pyelonephritis N12 Uncontrolled hypertension I10
[2020-12-18 14:53] VITALS: BP 183/109; PULSE 73; RESP 16; TEMP 36.8; O2SAT 95
--- NOTE | 2020-12-18 15:05 | PC.RESP ---
SMOKING CESSATION INFORMATION SENT TO PATIENT.
== END 2020-12-18 14:30 | disposition home or self-care (01) ==
LOC: ER 17:57 → MEDSURG 18:29
PROVIDERS: Family Medicine; Admitting Provider Student in an Organized Health Care Education/Training Program; Emergency Provider Emergency Medicine; PCP Family Medicine Adult Medicine; Visit Provider Student in an Organized Health Care Education/Training Program
DX: N12 Tubulo-interstitial nephritis, not specified as acute or chronic (principal); I10 Essential (primary) hypertension; F41.9 Anxiety disorder, unspecified; F32.9 Major depressive disorder, single episode, unspecified; Z79.891 Long term (current) use of opiate analgesic; E66.9 Obesity, unspecified; Z68.38 Body mass index [BMI] 38.0-38.9, adult; F17.210 Nicotine dependence, cigarettes, uncomplicated
CPT/HCPCS: 36415; 51701; 71045; 74176; 80048; 80053; 81001; 83036; 84153; 85025; 87040; 87077; 87086; 87186; 87491; 87591; 87806; 96365; 96366; 96367; 96375; 99285; G0378; J0696; J1885; J2270; J3480; J7799

== ENCOUNTER → 2021-02-12 08:33 | Outpatient (BNVA) | payer OTHER, SELFPAY | PROVIDERS: PCP Family Medicine Adult Medicine; Visit Provider Urology | DX: N39.0 Urinary tract infection, site not specified (principal) | CPT/HCPCS: 81003 ==

== ENCOUNTER 2021-03-24 13:01 | Outpatient (CLI) | payer OTHER, SELFPAY ==
--- NOTE | 2021-03-24 12:30 | CT_ITS ---
WS: [id number] CT ABDOMEN AND PELVIS NONCONTRAST HISTORY: HX OF KIDNEY STONE TECHNIQUE: Imaging performed through the abdomen and pelvis. Coronal and sagittal reformats are submi tted. All CT scans at [facility] use at least one of these dose optimization techniques: auto mated exposure control; mA and/or kV adjustment per patient size (includes targeted exams where dose is matched to clinical indication); or iterative reconstruction. DLP: 2.51 mGy.cm COMPARISON: 12/16/2020 Lower thorax: Lung bases are clear. Visualized heart is normal. No hiatal hernia. Liver: Hepatic steatosis and hepatomegaly. Hypoattenuating lesion in the LEFT lobe measures 2.0 cm an d is probably a cyst. No bile duct dilatation. Gallbladder: Normal gallbladder. Pancreas: Normal size and attenuation. Normal pancreatic duct. No pancreatitis or mass. Spleen: Normal. Adrenal glands: Normal RIGHT adrenal gland. LEFT adrenal adenoma measures 1.8 cm. Right kidney: Normal size RIGHT kidney. Nonobstructing 2 mm calcification. There is a small exophytic nodule from the upper pole too small to characterize. No ureteral stone or obstruction. Left kidney: Normal size kidney. Nonobstructing renal calcifications. The largest is 11 mm in the low er pole. There is mild motion artifact. There is a low-attenuation nodule in the mid kidney which may be a cyst. Similar in size and appearance as compared to the prior study. No ureteral calcification or obstruction. Aorta: Mild atherosclerosis abdominal aorta with no aneurysm. No free fluid, intraperitoneal air or significant lymphadenopathy. GI tract: Normal appendix. No GI tract obstruction. Abdominal wall: A containing umbilical hernia. Pelvis: Minimally distended urinary bladder. No free fluid or adenopathy. Osseous structures: Unremarkable. CT/CT kidney stone [id number] IMPRESSION: 1. Bilateral nonobstructing renal calculi. 2. No hydronephrosis or hydroureter. 3. Hepatic steatosis and hepatomegaly. 4. Benign LEFT adrenal adenoma. 5. Normal appendix. 6. Hepatic and LEFT renal cysts.
== END 2021-03-24 13:02 | disposition home or self-care (01) ==
PROVIDERS: PCP Family Medicine Adult Medicine; Visit Provider Nurse Practitioner Family
DX: N48.89 Other specified disorders of penis (principal); Z87.442 Personal history of urinary calculi; N20.0 Calculus of kidney; K76.0 Fatty (change of) liver, not elsewhere classified; R16.0 Hepatomegaly, not elsewhere classified; D35.02 Benign neoplasm of left adrenal gland; K76.89 Other specified diseases of liver; Q61.02 Congenital multiple renal cysts
CPT/HCPCS: 74176; 81003; 87086

== ENCOUNTER 2021-04-29 18:35 | Inpatient (IN) | payer OTHER, SELFPAY ==
[2021-04-29] VITALS (18 sets, daily range): BP systolic 132–176; BP diastolic 85–118; PULSE 95–109; RESP 14–22; TEMP 36.4–36.6; O2SAT 91–98; BMI 38.7
[2021-04-29 19:14] LABS: Glucose Point of Care > 600 mg/dL (70-110)
[2021-04-29 19:36] LABS: Add Urine Microscopic? NO; Charge for UA Resulting for Rev
[2021-04-29 19:56] LABS: Bilirubin Urine Neg (Negative); Blood Urine Neg (Negative); Glucose Urine UA 4+ (Normal); Ketones Urine Negative (Negative); Leukocyte Esterase Urine Negative (Negative); Nitrate Urine Negative (Negative); Protein Urine Neg (Negative); Urine Appearance Clear (CLEAR); Urine Color Straw (Yellow); Urobilinogen Urine Norm (Negative); pH Urine 5 (5-7)
[2021-04-29 20:00] LABS: ABG PCO2 46.8 mmHg (35-45); ABG PH Result 7.43 (7.35-7.45); Arterial Blood Gas Hematocrit 48.1 % (42-52); Base Excess ABG 5.9 mmol/L (-2.0-2.0); Blood Gas Sample Site Brachial, right; Blood Gas Sample Type Arterial; HCO3 ABG 31.3 mmol/L (22-26); PO2 ABG 59.4 mmHg (80.0-100.0)
--- NOTE | 2021-04-29 20:18 | W.ED.GENADLT ---
HPI - General Adult General: Chief complaint: General Medical Stated complaint: HIGH GLUCOSE/SENT FROM DR. DIAZ Time Seen by Provider: 04/29/21 20:09 Source: patient Mode of arrival: ambulatory Limitations: no limitations History of Present Illness: HPI narrative: 45-year-old male states that over the last few weeks has been feeling quite tired and having increased thirst along with excessive urination. He states that he had his blood drawn today and his blood sugar was over thousand. He states he has had some vomiting as well denies any diarrhea. He is not a known diabetic denies any worsening improving factors. Associated symptoms: Deny chest pain, dyspnea, headache(s), nausea, rash or vomiting Review of Systems Const: Denies: fever(s), chills, body aches or change in appetite Eyes: Denies: blurry vision or eye discomfort ENMT: Denies: throat pain or dental pain Card: Denies: chest pain Resp: Denies: dyspnea GI: Denies: abdominal pain, nausea, vomiting or diarrhea : Denies: dysuria Musc: Denies: neck pain or back pain Skin/Breast: Denies: rash Neuro: Denies: headache(s) Psych: Denies: depression Endo: Reports: polyuria, polydipsia and tired all the time Leonel/Lymph: Denies: easy bruising All/Imm: Denies: urticaria PFSH ED PFSH: Medical History Anxiety and depression Bilateral renal stones Constipation due to opioid therapy Diabetes mellitus type 2 in obese Erectile dysfunction Exercise-induced coughing episode Hypertension Muscle cramps at night Obesity (BMI 35.0-39.9 without comorbidity) Prostatitis Recurrent UTI Umbilical hernia without mention of obstruction or gangrene Uncontrolled hypertension Surgical History H/O hernia repair Family History Other Cancer Diabetes Hypertension Social History Alcohol intake: current Alcohol intake frequency: 0-2 Drinks per Day Marital status: Number of children: 4 Number of grandchildren: 0 Current occupational status: employed History of recent travel: No Physical Exam Const: COMMON NORMALS: no acute distress, patient oriented x3 and healthy appearing HENMT: COMMON NORMALS: normocephalic and atraumatic HEAD & SCALP: normocephalic and atraumatic Eye: COMMON NORMALS: Equal, round and reactive pupils present and EOMs intact bilaterally PUPIL: Yes Equal, round and reactive pupils present Neck/C-Spine: COMMON NORMALS: full ROM and supple Chest: COMMONS NORMALS: normal inspection of the chest and normal palpation of entire chest wall Resp: COMMON NORMALS: normal respiratory effort, No retractions, No use of accessory muscles and clear to auscultation bilaterally AUSCULTATION: clear to auscultation bilaterally Cardio: COMMON NORMALS: regular rate, regular rhythm and No murmurs present (Cardio) RATE: regular rate RHYTHM: regular rhythm GI: COMMON NORMALS: Normal to inspection, nondistended, normoactive bowel sounds present, Soft to palpation, non-tender and no masses PALPATION: Yes Soft to palpation Extremity: COMMON NORMALS: normal to inspection and full ROM Neuro: COMMON NORMALS: patient oriented x3, moves all extremities and no focal motor deficits Psych: COMMON NORMALS: mental status grossly normal, Normal thought process present and cooperative THOUGHT PROCESS: Normal thought process present Skin: COMMON NORMALS: no rashes or lesions noted and no wounds GENERAL SKIN EXAM: no rashes or lesions noted Course Vital Signs: Vital signs: Vital Signs Temperature 97.8 F 04/29/21 19:00 Pulse Rate 109 H 04/29/21 19:00 Respiratory Rate 22 H 04/29/21 19:00 Blood Pressure 136/85 04/29/21 19:00 Pulse Oximetry 93 04/29/21 19:00 MDM - General Adult MDM Narrative: Medical decision making narrative: Patient presents here with severe hyperglycemia he does have an anion gap but is not acidotic. Patient started on insulin drip given IV fluids he has new onset diabetic. Is no signs of infection. I spoke to hospitalist and will admit to the ICU. Lab Data: Labs: Lab Results 04/29/21 04/29/21 04/29/21 18:59 19:09 19:50 Specimen Type Arterial Sample Site Brachial, right ABG pH 7.43 (7.35-7.45) ABG pCO2 46.8 mmHg H mmHg (35-45) ABG pO2 59.4 mmHg L mmHg (80.0-100.0) ABG HCO3 31.3 mmol/L H mmo l/L (22-26) ABG Base Excess 5.9 mmol/L H mmol /L (-2.0-2.0) Matthew Test N/a Hematocrit 48.1 % % (42-52) O2 Delivery Device None FiO2 21.0 % % Hydraulic Corrugating Machine Operator ID Rieri POC Glucose > 600 mg/dL H* mg /dL (70-110) Urine Color Straw (Yellow) Urine Appearance Clear (CLEAR) Urine pH 5 (5-7) Ur Specific Gravit y 1.010 (1.005-1.030) Urine Protein Neg (Negative) Urine Glucose (UA) 4+ H (Normal) Urine Ketones Negative (Negative) Urine Blood Neg (Negative) Urine Nitrate Negative (Negative) Urine Bilirubin Neg (Negative) Urine Urobilinogen Norm mg/dL mg/dL (Negative) Ur Leukocyte Bernie ase Negative (Negative) Discharge Plan Discharge Patient Disposition: Admitted As Inpatient Admit Provider: Sarah Nagel Clinical Impression: Severe hyperglycemia due to diabetes mellitus Condition: Stable Coding Level of Care Code ED Waxed Bag Machine Operator for Chg Fwd Exam Comprehensive
[2021-04-29 20:38] LABS: Basophils # 0.1 10^3/uL (0.0-0.1); Basophils % 0.8 %; Eosinophils # 0.4 10^3/uL (0.0-0.8); Eosinophils % 2.6 %; Hemoglobin 15.3 g/dL (11.7-16.6); Lymphocytes # 4.2 10^3/uL (0.8-4.8); Lymphocytes % 29.3 %; Mean Corpuscular HGB Conc 36.4 g/dL (30.0-36.0); Mean Corpuscular Hemoglobin 31.2 pg (28.0-34.0); Mean Corpuscular Volume 85.5 fl (80-94); Mean Platelet Volume 10.7 fL (7.4-10.4); Monocytes # 0.8 10^3/uL (0.2-0.9); Monocytes % 5.8 %; Neutrophils # 8.76 10^3/uL (1.8-7.7); Nucleated Red Blood Cells % 0 %; Platelet Count 274 10^3/cmm (130-400); Red Blood Count 4.91 10^6/uL (4.1-5.3); Red Cell Distribution Width 12.3 % (12.1-15.1); White Blood Count 14.4 10^3/uL (4.0-10.0)
[2021-04-29] MEDS: sodium chloride 0.9% 1,000 ML 999 ML IV ×2 (21:00→22:33)
[2021-04-29 21:09] LABS: Ketone (Acetest) Serum Negative (Negative)
[2021-04-29 21:17] LABS: Alanine Aminotransferase 52 U/L (0-41); Albumin Level 4.5 g/dL (3.5-5.2); Alkaline Phosphatase 210 IU/L (40-130); Anion Gap 18.2 (5-19); Aspartate Amino Transferase 23 U/L (0-40); Blood Urea Nitrogen 23 mg/dL (6-20); Calcium 10.2 mg/dL (8.5-10.5); Carbon Dioxide 30 mmol/L (22-29); Chloride 78 mmol/L (98-107); Globulin 2.8 g/dL (1.3-4.6); Glomerular Filtration Rate 92.1 mL/min (90-130); Potassium 4.2 mmol/L (3.5-5.1); Sodium 122 mmol/L (136-145); Total Bilirubin 0.4 mg/dL (0.15-1.2); Total Protein 7.3 g/dL (6.6-8.7)
[2021-04-29 21:25] LABS: Osmolality Calculated 296 mOsm/kg (285-295)
[2021-04-29] MEDS: insulin regular-human 250 UNIT in sodium chloride 0.9% 250 ML 10 UNIT IV (21:25)
[2021-04-29 21:34] LABS: Glucose 787 mg/dL (65-115)
[2021-04-29 22:19] LABS: Glucose Point of Care > 600 mg/dL (70-110)
--- NOTE | 2021-04-29 22:52 | PC.NURSE ---
Per Dr Nagel, give 15units regular insulin push if 2300 blood sugar remains over 600. If gap remains closed will be able to resume diet and move to sliding scale.
[2021-04-29 23:06] LABS: Glucose Point of Care 506 mg/dL (70-110)
[2021-04-29 23:16] LABS: Glucose 550 mg/dL (65-115)
[2021-04-29] MEDS: sodium chloride 0.9% 1,000 ML 75 ML IV (23:48)
[2021-04-30] VITALS (14 sets, daily range): BP systolic 99–161; BP diastolic 63–128; PULSE 60–100; RESP 16–22; TEMP 36.4–36.9; O2SAT 89–99
[2021-04-30 00:10] LABS: Glucose Point of Care 331 mg/dL (70-110)
--- NOTE | 2021-04-30 00:12 | PC.NURSE ---
Verbal order from Dr Nagel, current blood sugar 331, had no need for previous order of 15u regular insulin push. At this time 0013 discontinue insulin gtt, initiate high sliding scale and 10u lantus.
[2021-04-30 00:22] LABS: Glucose 348 mg/dL (65-115)
[2021-04-30] MEDS: insulin lispro 100 unit/1 mL SUBCUT ×7 (00:37→21:04)
[2021-04-30] MEDS: insulin glargine 100 units/1 mL 10 UNIT SUBCUT (00:37)
[2021-04-30 01:04] LABS: Glucose Point of Care 358 mg/dL (70-110)
--- NOTE | 2021-04-30 01:40 | PM.HP ---
Providers/Chief Complaint Admitting Physician: Sarah Nagel MD Primary Care Provider: Chava Diaz MD Chief Complaint: HIGH GLUCOSE/SENT FROM DR. DIAZ History of Present Illness With Safia Nickerson is a 46 year old male with a history of diabetes mellitus, hypertension, recurrent urinary tract infection and chronic prostatitis for which she has been treated with a 6-week course of Bactrim in December 2020 and more recently has been on cefuroxime. He presented for follow-up with his primary care provider today complaints were data polyuria, polydipsia, muscle cramps and overall generalized weakness. A CMP was performed which noted blood sugar greater than 1100 with an anion gap of 26 so he was directed to come into the emergency room. He has been checking his blood sugar at home over the last 2 days and says it has consistently been greater than 500. Review of past notes shows that he was diagnosed with diabetes mellitus in December 2020 when he had presented with a recurrent UTI. HbA1c at that time was 7. Does not appear patient has been on any medication in the interim. Current HbA1c is noted to be at 10. He was started on insulin drip in the emergency room. By the time of my evaluation, his blood sugar has trended down to 600, serum ketones are negative, and anion gap is closed. Denies any recent fever or chills. Does report polyuria, has been on treatment with cefuroxime for chronic prostatitis from urology. UA today is unremarkable. Review of Systems General: Reports: 10 or more systems reviewed and unremarkable except in HPI and below Const: Denies: fever(s), chills or body aches Eyes: Denies: change in vision, blurry vision or photophobia ENMT: Reports: hoarseness; Denies: throat pain, enlarged tonsils, odynophagia or nasal congestion Card: Denies: chest pain, palpitations, irregular heart rhythm, edema, swelling of feet/ankles, lightheadedness, pre-syncope, dyspnea on exertion or orthopnea Resp: Denies: dyspnea, productive cough, non-productive cough, wheezing, stridor, pain on inspiration, change in phlegm color, hemoptysis or chest congestion GI: Denies: abdominal pain, nausea, vomiting, hematemesis, coffee ground emesis, dysphagia, heartburn, diarrhea, constipation, GI cramping, change in stool character, hematochezia or melena : Denies: flank pain, dysuria, urinary frequency, urinary urgency, urinary hesitancy or hematuria Musc: Denies: neck pain, back pain, extremity pain, joint swelling, joint warmth or deformity Neuro: Denies: headache(s), numbness in extremities, weakness in extremities, sensory changes, difficulty walking, frequent falls, dizziness, vertigo, behavioral changes, Slurred speech present or seizure-like activity Psych: Denies: anxiety, depression, suicidal ideation or homicidal ideation Endo: Denies: polyuria, polydipsia, tired all the time, cold intolerance or hot flashes Leonel/Lymph: Denies: easy bruising or easy bleeding Medications/Allergies Home Medications Medication Instructions Recorded Confirmed Last Taken Type naproxen sodium [Aleve] 440 mg PO PRN 12/16/20 04/29/21 04/25/21 History amlodipine 10 mg tablet 10 mg PO DAILY 30 Days #30 tab 12/24/20 04/29/21 04/28/21 Rx cetirizine 10 mg tablet 10 mg PO .as needed PRN tab 12/24/20 04/29/21 04/27/21 History loratadine 10 mg tablet 10 mg PO .as needed PRN tab 12/24/20 04/29/21 Unknown History sertraline 100 mg tablet 100 mg PO QAM #30 tab 12/24/20 04/29/21 04/29/21 Rx sildenafil 100 mg tablet See Rx Instructions .ROUTE 01/01/21 04/29/21 Unknown Rx .COMPLEX #20 tab epinephrine 0.125 mg/actuation 1 puff INHALATION Q6H PRN #11.7 g 01/28/21 04/29/21 Unknown Rx aerosol inhaler lisinopril 20 1 tab PO DAILY #30 tab 01/28/21 04/29/21 04/29/21 Rx mg-hydrochlorothiazide 25 mg tablet cefuroxime axetil 500 mg tablet 500 mg PO BID #60 tab 03/24/21 04/29/21 04/29/21 Rx metformin 500 mg tablet 500 mg PO BID #60 tab 04/29/21 04/29/21 04/29/21 Rx Allergies Allergy/AdvReac Type Severity Reaction Status Date / Time codeine Allergy rash Verified 04/29/21 09:22 Penicillins Allergy rash Verified 04/29/21 09:22 PFSH Acute PFSH: Medical History Anxiety and depression Bilateral renal stones Constipation due to opioid therapy Diabetes mellitus type 2 in obese Erectile dysfunction Exercise-induced coughing episode Hypertension Muscle cramps at night Obesity (BMI 35.0-39.9 without comorbidity) Prostatitis Recurrent UTI Umbilical hernia without mention of obstruction or gangrene Uncontrolled hypertension Surgical History H/O hernia repair Family History Other Cancer Diabetes Hypertension Social History Alcohol intake: current Alcohol intake frequency: 0-2 Drinks per Day Marital status: Number of children: 4 Number of grandchildren: 0 Current occupational status: employed History of recent travel: No Vitals/I&O/Wt Last Vital Signs Temp 98 F 04/30/21 00:00 Pulse 95 04/29/21 23:30 Resp 17 04/29/21 23:30 BP 152/109 04/29/21 23:30 Pulse Ox 95 04/29/21 23:30 04/29/21 04/29/21 04/30/21 14:59 22:59 06:59 Intake Total 1475 / 1475 1510.104 / 2985.104 Output Total 400 / 400 400 / 800 Balance 1075 / 1075 1110.104 / 2185.104 Weight last 48 hrs Weight 136.701 kg Physical Exam Narrative: EXAM NARRATIVE: General: No acute distress, AO x3 HEENT: PERRLA, pupils bilaterally equal and reactive, pallors not present Chest: Normal vesicular breath sounds, no added sounds, equal good air entry bilaterally CVS: S1-S2 regular, no murmurs, no tachycardia, no gallops, no rubs Abdomen: Soft, nontender, no organomegaly, bowel sounds present Neuro: No focal deficits, no facial deformity, AO x3, power 5/5 in all limbs Extremities: no edema, clubbing or cyanosis Data : 04/29/21 20:27 04/30/21 02:55 A&P Assessment and plan (1) Severe hyperglycemia due to diabetes mellitus: Status: Acute (2) Hyperosmolar hyperglycemic state (HHS): Status: Acute Additional A&P Information Patient presenting today with severe hyperglycemia. On CMP check with primary care provider earlier today he was noted to have a blood sugar greater than 1100, anion gap of 26. Was started on insulin infusion at 10 units/h shortly after ER arrival and admitted to intensive care unit for to continue insulin drip. On most recent CMP, his blood sugar has trended down to between 300-3 50, anion gap is now closed. Patient will be transitioned to subcu insulin. Lantus 10 units and 16 units of insulin lispro to be given now. Thereafter started on high-dose insulin sliding scale and Lantus 15 units daily. He was started on Metformin 500 mg p.o. twice daily just yesterday as outpatient. Monitor electrolytes including potassium. HbA1c today at 10 Hypertension: Continue amlodipine, lisinopril HCTZ Chronic prostatitis: Reports polyuria which may be a symptom of uncontrolled hyperglycemia, UA today not concerning for UTI however patient has been on cefuroxime as outpatient, therefore interpret with caution. check urine cx. Suspect leukocytosis likely as a result of hemoconcentration however with some urinary symptoms and h/o prostatitis, cannot currently exclude infection. Check urine cx. Ceftriaxone 1g iv q24 while inpatient. Attestations Medical Necessity Statement*: anticipate >2midnight admission for above defined care Coding Level of Care Code Acute Otolaryngology Rep for g Fwd Diagnoses Severe hyperglycemia due to diabetes mellitus E11.65 Hyperosmolar hyperglycemic state (HHS) E11.00; E11.65
[2021-04-30] MEDS: enoxaparin 40 mg/0.4 mL Syringe SUBCUT (02:52)
[2021-04-30] MEDS: cefTRIAXone 1,000 MG in sodium chloride 0.9% (plus) 50 ML 100 MG IV (02:52)
[2021-04-30 03:17] LABS: Glucose Point of Care 385 mg/dL (70-110)
[2021-04-30 03:42] LABS: Alanine Aminotransferase 42 U/L (0-41); Albumin Level 3.8 g/dL (3.5-5.2); Alkaline Phosphatase 118 IU/L (40-130); Anion Gap 17.1 (5-19); Aspartate Amino Transferase 22 U/L (0-40); Blood Urea Nitrogen 18 mg/dL (6-20); Calcium 9.3 mg/dL (8.5-10.5); Carbon Dioxide 28 mmol/L (22-29); Chloride 91 mmol/L (98-107); Globulin 2.8 g/dL (1.3-4.6); Glomerular Filtration Rate 91.7 mL/min (90-130); Glucose 309 mg/dL (65-115); Osmolality Calculated 290 mOsm/kg (285-295); Potassium 3.1 mmol/L (3.5-5.1); Sodium 133 mmol/L (136-145); Total Bilirubin 0.3 mg/dL (0.15-1.2); Total Protein 6.6 g/dL (6.6-8.7)
--- NOTE | 2021-04-30 04:19 | PC.NURSE ---
Dr Nagel ordered to transfer to [facility] and placed orders to replace potassium. Report called to Toni in [facility] at [phone].
[2021-04-30] MEDS: lidocaine 1% 5 ML in potassium chloride premix 100 ML 25 ML IV (05:21)
[2021-04-30] MEDS: sertraline 100 mg Tablet PO (05:23)
--- NOTE | 2021-04-30 05:53 | PC.NURSE ---
i reported high reps 20 to nurse
--- NOTE | 2021-04-30 06:15 | ECG_ITS ---
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: : 1975 Requested By: Sarah Nagel Order Number: [id number] Elías MD: ONI RYAN Measurements Intervals [place] Rate: 100 P: 30 NV: 185 QRS: 2 QRSD: 94 T: 29 QT: 338 QTc: 436 Interpretive Statements SINUS TACHYCARDIA MODERATE VOLTAGE CRITERIA FOR LVH, CONSIDER NORMAL VARIANT [MEETS CRITERIA IN ONE OF: R(aVL), S(V1), R(V5), R(V5/V6)+S(V1)] NONSPECIFIC T-WAVE ABNORMALITY ABNORMAL RHYTHM ECG Compared to ECG 01/15/2015 13:37:54 T-wave abnormality now present Sinus rhythm no longer present First degree AV block no longer present Electronically Signed On 05-01-2021 0:11:08 CDT by ONI RYAN [id number]
[2021-04-30] MEDS: potassium chloride ER 20 mEq Tablet 40 MEQ PO (06:34)
[2021-04-30 06:43] LABS: Troponin T (5th) Once 14 ng/L (0-15)
[2021-04-30 07:11] LABS: Glucose Point of Care 435 mg/dL (70-110)
[2021-04-30] MEDS: nicotine 21 mg Patch 1 PATCH TRANSDERMA (08:03)
[2021-04-30] MEDS: amlodipine 10 mg Tablet PO (08:03)
[2021-04-30] MEDS: pantoprazole DR 40 mg Tablet PO (08:04)
[2021-04-30] MEDS: lisinopril 20 mg Tablet PO (08:04)
[2021-04-30] MEDS: hydroCHLOROthiazide 25 mg Tablet PO (08:04)
--- NOTE | 2021-04-30 08:37 | PC.PHAR ---
pt states his dina takes care of his medications-pts dina [phone] verified pts medications
[2021-04-30 08:39] LABS: Troponin(5th) Baseline 9 ng/L (0-15)
--- NOTE | 2021-04-30 10:08 | ECG_ITS ---
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
[2021-04-30 10:30] LABS: Troponin 5 2HR 9.26 ng/L (0-15); Troponin 5 2HR Delta 0.26 ABS# (0-10)
--- NOTE | 2021-04-30 10:30 | PC.CHAP ---
Pastoral Care Encounter/Spiritual Assessment Type of Contact [] Declined director of medical services visit [] Patient/Family/Request visit [] Outpatient visit [] Follow-up visit [] Physician referral [] Code/Alert [X] Routine visit [] Staff referral [] Actively dying [] Patient sleeping [] Family support [] [] Out of room [] Palliative care [] [] Receiving care in room [] Pre-surgical visit [] Trauma [] Long length of stay [] ICU visit [] Other: Relational/Emotional Strength [X] Patient feels connected with others/family/visitors/staff [] Distress [] Loneliness/isolation [] Abandonment Spirituality of Patient [X] Person of Zahida [] Attends Baptism of their Zahida [X] Believes in Prayer [] Reads Bible or Yazidism materials [] There are Spiritual issues to be addressed Potato Chip Packaging Machine Operator Interventions [X] Prayer [X] Active listening [X] Non-anxious presence [] Spiritual/emotional support [] Crisis/trauma care [] Spiritual counseling [] Bereavement support [] Provided bereavement packet [] Provided Bible/devotional materials [] Provided toy/stuffed animal, coloring book to patient or family member [] Provided Communion [] Anointing/[place] [] Salvation [X] Completed spiritual assessment [] Other: Impact on Illness or Injury [] Angry [] Fearful [] Anxious [] Often cries [] Exhaustion [] Unable to work [] Unable to attend religion [] Unable to walk/stand [] Unable to read [] Unable to drive [] Unable to eat/drink [] Unable to sleep [] Unable to be with family [] Patient intubated [] Other: Summary Time spent with patient 10 MIN
--- NOTE | 2021-04-30 11:02 | P.PN_ITS ---
Subjective Subjective: Interval history: Ethan reports he is doing okay. He feels much better than he did when his sugar was 1000. History and physical reviewed. Medications: Reviewed: Yes Vitals/I&O/Wt Last Vital Signs Temp 98.5 F 04/30/21 08:00 Pulse 95 04/30/21 08:00 Resp 17 04/30/21 08:00 BP 139/90 04/30/21 08:00 Pulse Ox 93 04/30/21 08:00 04/29/21 04/30/21 04/30/21 22:59 06:59 14:59 Intake Total 1475 / 1475 1800.104 / 3275.104 360 / 360 Output Total 400 / 400 400 / 800 700 / 700 Balance 1075 / 1075 1400.104 / 2475.104 -340 / -340 Weight last 48 hrs Weight 136.701 kg Physical Exam Narrative: EXAM NARRATIVE: General exam no distress Neck is supple Cardiovascular regular rate and rhythm Lungs clear Abdomen is soft, positive bowel sounds Extremities no cyanosis clubbing or edema Data : 04/29/21 20:27 04/30/21 02:55 A&P Assessment and plan (1) Severe hyperglycemia due to diabetes mellitus: Improved Lantus initiated at 20 units at bedtime Insulin 5 units with meals, and moderate sliding scale in addition to this. Diabetic education, insulin injection technique. Will need close follow-up until tomorrow to ensure moderate control of sugars prior to discharge. Status: Acute (2) Hyperosmolar hyperglycemic state (HHS): See above Anion gap has resolved Status: Acute Additional A&P Information Hypokalemia, supplement Arm and chest discomfort with infusion of IV potassium. This was discontinued. Troponin and EKG x2 ordered. Both negative. Hypertension, continue home medications Chronic prostatitis. Continue Rocephin inpatient. Await urine culture. Full code Lovenox for DVT prophylaxis Attestations Medical Necessity Statement*: Needs continued hospitalization for adjustment of medications secondary to hyperosmolar hyperglycemic state, new diagnosis of diabetes Coding Level of Care Code Acute Apartment Maintenance Supervisor for Chg Fwd Diagnoses Severe hyperglycemia due to diabetes mellitus E11.65 Hyperosmolar hyperglycemic state (HHS) E11.00; E11.65
[2021-04-30 11:21] LABS: Glucose Point of Care 386 mg/dL (70-110)
[2021-04-30 12:03] LABS: Thyroid Stimulating Hormone 0.42 uIU/mL (0.27-4.20)
[2021-04-30] MEDS: sodium chloride 0.9% 1,000 ML 75 ML IV (12:39)
[2021-04-30 18:00] LABS: Glucose Point of Care 554 mg/dL (70-110)
[2021-04-30 20:28] LABS: Glucose Point of Care 475 mg/dL (70-110)
[2021-04-30] MEDS: insulin glargine 100 units/1 mL 20 UNIT SUBCUT (21:05)
[2021-05-01] VITALS: BP 121/70; PULSE 93; RESP 18; TEMP 36.7; O2SAT 92
[2021-05-01] MEDS: cefTRIAXone 1,000 MG in sodium chloride 0.9% (plus) 50 ML 100 MG IV (01:35)
[2021-05-01] MEDS: sodium chloride 0.9% 1,000 ML 75 ML IV (01:36)
[2021-05-01] MEDS: enoxaparin 40 mg/0.4 mL Syringe SUBCUT (01:36)
[2021-05-01 04:00] VITALS: BP 119/69; PULSE 90; RESP 17; TEMP 36.8; O2SAT 92
[2021-05-01 06:01] LABS: Basophils # 0.1 10^3/uL (0.0-0.1); Basophils % 0.7 %; Eosinophils # 0.5 10^3/uL (0.0-0.8); Eosinophils % 3.9 %; Hematocrit 38.7 % (42.0-52.0); Hemoglobin 13.4 g/dL (11.7-16.6); Lymphocytes # 3.9 10^3/uL (0.8-4.8); Lymphocytes % 32.9 %; Mean Corpuscular HGB Conc 34.6 g/dL (30.0-36.0); Mean Corpuscular Hemoglobin 30.9 pg (28.0-34.0); Mean Corpuscular Volume 89.4 fl (80-94); Mean Platelet Volume 10.8 fL (7.4-10.4); Monocytes # 0.6 10^3/uL (0.2-0.9); Monocytes % 4.9 %; Neutrophils # 6.67 10^3/uL (1.8-7.7); Nucleated Red Blood Cells % 0 %; Platelet Count 234 10^3/cmm (130-400); Red Blood Count 4.33 10^6/uL (4.1-5.3); Red Cell Distribution Width 12.2 % (12.1-15.1); White Blood Count 11.7 10^3/uL (4.0-10.0)
[2021-05-01 06:16] LABS: Anion Gap 12.4 (5-19); Blood Urea Nitrogen 16 mg/dL (6-20); Calcium 8.7 mg/dL (8.5-10.5); Carbon Dioxide 29 mmol/L (22-29); Chloride 93 mmol/L (98-107); Glomerular Filtration Rate 122.5 mL/min (90-130); Glucose 320 mg/dL (65-115); Osmolality Calculated 285 mOsm/kg (285-295); Potassium 3.4 mmol/L (3.5-5.1); Sodium 131 mmol/L (136-145)
[2021-05-01] MEDS: insulin lispro 100 unit/1 mL SUBCUT ×2 (06:41→08:55)
[2021-05-01] MEDS: sertraline 100 mg Tablet PO (06:41)
[2021-05-01 06:53] LABS: Glucose Point of Care 414 mg/dL (70-110)
[2021-05-01] MEDS: potassium chloride ER 20 mEq Tablet 40 MEQ PO (07:57)
[2021-05-01] MEDS: insulin glargine 100 units/1 mL 10 UNIT SUBCUT (07:58)
[2021-05-01 08:00] VITALS: BP 165/99; PULSE 92; RESP 16; TEMP 36.7; O2SAT 91
[2021-05-01] MEDS: loratadine 10 mg Tablet PO (08:20)
[2021-05-01] MEDS: nicotine 21 mg Patch 1 PATCH TRANSDERMA (08:20)
[2021-05-01] MEDS: amlodipine 10 mg Tablet PO (08:21)
[2021-05-01] MEDS: pantoprazole DR 40 mg Tablet PO (08:21)
[2021-05-01] MEDS: hydroCHLOROthiazide 25 mg Tablet PO (08:21)
[2021-05-01] MEDS: lisinopril 20 mg Tablet PO (08:21)
--- NOTE | 2021-05-01 09:00 | P.DS_ITS ---
Discharge Providers Date of Admission: 04/29/21 20:23 Date of Discharge: May 01, 2021 Attending Provider at Admission: Sarah Nagel MD Attending Provider at Discharge: Matt Ramírez MD Primary Care Provider: Chava Paniagua MD Diagnoses at Discharge Discharge Diagnosis (1) Severe hyperglycemia due to diabetes mellitus: Status: Acute (2) Hyperosmolar hyperglycemic state (HHS): Status: Acute Reason for Visit Reason for Visit: HIGH GLUCOSE/SENT FROM DR. PANIAGUA Hospital Course Hospital Course Mr. Nickerson is a 46-year-old white male who presented to the hospital secondary to markedly elevated glucose. Outside laboratory by physician apparently showed sugar greater than 1000. He was found to be in a hyperosmolar nonketotic state. He was initially given fluids and an insulin drip in the ICU and he rapidly corrected his anion gap. He was moved to the floor and placed on long-acting insulin as well as sliding scale. This was escalated during his time to 30 units of Lantus and 5 units o with meals with an additional moderate sliding scale on top of this. By May 01 he was feeling back to baseline. Blood sugars ranged from 300 to mid 400s. It was thought he could discharge home, continue current insulin regimen, and continue to get adjustments of insulin every 3 to 4 days to improve control. He will be able to resume Metformin as well. I do not think it is likely that he had lactic acidosis from Metformin as severe hyperglycemia was preceding addition of this medication. Warning instructions regarding hypoglycemia were given. He is to receive diabetic education, insulin education prior to discharge. No evidence of precipitating factor was found, although he is on a long-term course of antibiotics for prostatitis. Cultures were negative at discharge. Physical Exam Narrative: EXAM NARRATIVE: General exam no distress Neck is supple no lymphadenopathy or thyromegaly Cardiovascular regular rate and rhythm Lungs clear Abdomen is soft with positive bowel sounds Extremities no cyanosis clubbing or edema Discharge Data Data Completed and Pending: Pending at discharge Category Date Time Status Urine Culture Rou marielena Lab 04/30/21 04:46 Received Labs from last 24 hours 05/01/21 05/01/21 05/01/21 06:33 05:25 05:25 WBC 11.7 H RBC 4.33 Hgb 13.4 Hct 38.7 L MCV 89.4 MCH 30.9 MCHC 34.6 RDW 12.2 Plt Count 234 MPV 10.8 H Neut % (Auto) 57.0 Lymph % (Auto) 32.9 [place] % (Auto) 4.9 Eos % (Auto) 3.9 Baso % (Auto) 0.7 Neut # (Auto) 6.67 Lymph # (Auto) 3.9 [place] # (Auto) 0.6 Eos # (Auto) 0.5 Baso # (Auto) 0.1 Nucleated RBC % (a uto) 0 Nucleated RBCs # 0.0 Sodium 131 L Potassium 3.4 L Chloride 93 L Carbon Dioxide 29 Anion Gap 12.4 BUN 16 Creatinine 0.7 GFR Calculation 122.5 Glucose 320 H POC Glucose 414 H Calculated Osmolal ity 285 Calcium 8.7 Troponin T 120 Min [place] Delta Troponin T TSH 04/30/21 04/30/21 04/30/21 19:21 17:57 11:12 WBC RBC Hgb Hct MCV MCH MCHC RDW Plt Count MPV Neut % (Auto) Lymph % (Auto) [place] % (Auto) Eos % (Auto) Baso % (Auto) Neut # (Auto) Lymph # (Auto) [place] # (Auto) Eos # (Auto) Baso # (Auto) Nucleated RBC % (a uto) Nucleated RBCs # Sodium Potassium Chloride Carbon Dioxide Anion Gap BUN Creatinine GFR Calculation Glucose POC Glucose 475 H 554 H* 386 H Calculated Osmolal ity Calcium Troponin T 120 Min [place] Delta Troponin T TSH 04/30/21 04/30/21 09:50 09:50 WBC RBC Hgb Hct MCV MCH MCHC RDW Plt Count MPV Neut % (Auto) Lymph % (Auto) [place] % (Auto) Eos % (Auto) Baso % (Auto) Neut # (Auto) Lymph # (Auto) [place] # (Auto) Eos # (Auto) Baso # (Auto) Nucleated RBC % (a uto) Nucleated RBCs # Sodium Potassium Chloride Carbon Dioxide Anion Gap BUN Creatinine GFR Calculation Glucose POC Glucose Calculated Osmolal ity Calcium Troponin T 120 Min [place] 9.26 Delta Troponin T 0.26 TSH 0.42 Vitals: Last Vital Signs Temp 98.3 F 05/01/21 04:00 Pulse 90 05/01/21 04:00 Resp 17 05/01/21 04:00 BP 119/69 05/01/21 04:00 Pulse Ox 92 05/01/21 04:00 Discharge Plan Discharge Patient Disposition: Home Condition: Stable Prescriptions: New (DME) Blood Glucose Monitoring Kit See Rx Instructions .ROUTE Qty: 1 RF: 0 (DME) Blood Glucose Test Strip See Rx Instructions .ROUTE Qty: 100 RF: 3 (DME) lancets-blood glucose strips 30 gauge combo pack See Rx Instructions .ROUTE Qty: 100 RF: 3 insulin lispro [Humalog KwikPen Insulin] 100 unit/mL insulin pen 5 unit SUBCUT TID Qty: 15 RF: 3 Basaglar KwikPen U-100 Insulin 100 unit/mL (3 mL) insulin pen 30 unit SUBCUT QPM Qty: 15 RF: 0 Continued Primatene Mist 0.125 mg/actuation HFA aerosol inhaler 1 puff inhalation Q6H PRN (Reason: bronchodilation) Qty: 11.7 RF: 3 metformin 500 mg tablet 500 mg PO BID Qty: 60 RF: 5 cefuroxime axetil 500 mg tablet 500 mg PO BID Qty: 60 RF: 2 loratadine [Claritin] 10 mg tablet 10 mg PO DAILY PRN (Reason: Allergy Symptoms) RF: 0 cetirizine [Zyrtec] 10 mg tablet 10 mg PO DAILY PRN (Reason: Allergy Symptoms) RF: 0 sertraline 100 mg tablet 100 mg PO QAM Qty: 30 RF: 5 sildenafil 100 mg tablet See Rx Instructions .Route .COMPLEX Qty: 20 RF: 6 amlodipine 10 mg tablet 10 mg PO BEDTIME RF: 0 lisinopril-hydrochlorothiazide 20-25 mg tablet 1 tab PO QAM RF: 0 Herminio Multivitamin For Men 200-175-250 mcg Tablet 1 tab PO DAILY RF: 0 Discontinued naproxen sodium [Aleve] 220 mg Tablet 440 mg PO Q12H PRN (Reason: Pain) RF: 0 Referrals: Chava Paniagua MD [Primary Care Provider] - 1-3 days (Follow-up for adjustment of insulin dosing.) Discharge Diet: Diabetic Discharge Activity: Increase activity as tolerated Patient Instructions: Opioid Safety Activity Restrictions/Additional Instructions: Take all medicine as prescribed. Call your primary care provider for further adjustments of insulin, following up with him in 2 to 3 days. Check your blood sugar before meals and at bedtime. Note that you are to take 30 units of Lantus at night. You are to take 5 units of Humalog with each meal, and a moderate sliding scale in addition to the 5 units. You should restart your Metformin. Discharge Attestations Time Spent in Discharge Care*: greater than 30 min Quality Metrics Clinical Quality Measures During this hospital stay, did patient experience: None Coding Level of Care Code Acute g [facility] note Diagnoses Severe hyperglycemia due to diabetes mellitus E11.65 Hyperosmolar hyperglycemic state (HHS) E11.00; E11.65
[2021-05-01 11:54] LABS: Glucose Point of Care 328 mg/dL (70-110)
--- NOTE | 2021-05-01 12:33 | PC.CHAP ---
Pastoral Care Encounter/Spiritual Assessment Type of Contact [] Declined painting trades worker visit [] Patient/Family/Request visit [] Outpatient visit [x] Follow-up visit [] Physician referral [] Code/Alert [] Routine visit [] Staff referral [] Actively dying [] Patient sleeping [] Family support [] [] Out of room [] Palliative care [] [] Receiving care in room [] Pre-surgical visit [] Trauma [] Long length of stay [] ICU visit [] Other: Relational/Emotional Strength [x] Patient feels connected with others/family/visitors/staff [] Distress [] Loneliness/isolation [] Abandonment Spirituality of Patient [] Person of Zahida [] Attends Congregational of their Zahida [] Believes in Prayer [] Reads Bible or Sabianism materials [] There are Spiritual issues to be addressed Jogger Operator Interventions [] Prayer [] Active listening [] Non-anxious presence [] Spiritual/emotional support [] Crisis/trauma care [] Spiritual counseling [] Bereavement support [] Provided bereavement packet [] Provided Bible/devotional materials [] Provided toy/stuffed animal, coloring book to patient or family member [] Provided Communion [] Anointing/[place] [] Salvation [x] Completed spiritual assessment [] Other: Impact on Illness or Injury [] Angry [] Fearful [] Anxious [] Often cries [] Exhaustion [] Unable to work [] Unable to attend baptism [] Unable to walk/stand [] Unable to read [] Unable to drive [] Unable to eat/drink [] Unable to sleep [] Unable to be with family [] Patient intubated [] Other: Summary Follow-up visit Time spent with patient 5 mins
--- NOTE | 2021-05-01 12:37 | PC.CHAP ---
Pastoral Care Encounter/Spiritual Assessment Type of Contact [] Declined blood donor recruiter supervisor visit [] Patient/Family/Request visit [] Outpatient visit [] Follow-up visit [] Physician referral [] Code/Alert [] Routine visit [] Staff referral [] Actively dying [] Patient sleeping [] Family support [] [] Out of room [] Palliative care [] [] Receiving care in room [] Pre-surgical visit [] Trauma [] Long length of stay [] ICU visit [x] Other: feels good is going home Relational/Emotional Strength [] Patient feels connected with others/family/visitors/staff [] Distress [] Loneliness/isolation [] Abandonment Spirituality of Patient [] Person of Zahida [] Attends Scientology of their Zahida [] Believes in Prayer [] Reads Bible or Gnosticist materials [] There are Spiritual issues to be addressed Health Safety Engineer Interventions [] Prayer [] Active listening [] Non-anxious presence [] Spiritual/emotional support [] Crisis/trauma care [] Spiritual counseling [] Bereavement support [] Provided bereavement packet [] Provided Bible/devotional materials [] Provided toy/stuffed animal, coloring book to patient or family member [] Provided Communion [] Anointing/[place] [] Salvation [] Completed spiritual assessment [] Other: Impact on Illness or Injury [] Angry [] Fearful [] Anxious [] Often cries [] Exhaustion [] Unable to work [] Unable to attend yazdanism [] Unable to walk/stand [] Unable to read [] Unable to drive [] Unable to eat/drink [] Unable to sleep [] Unable to be with family [] Patient intubated [] Other: Summary feels good is going home Time spent with patient 5 mins
[2021-05-01 13:35] VITALS: BP 165/99; PULSE 92; RESP 16; TEMP 36.7; O2SAT 91
== END 2021-05-01 13:37 | disposition home or self-care (01) | DRG 639 ==
LOC: ER 20:28 → ICU 20:43 → MEDSURG 04-30 04:42
PROVIDERS: Admitting Provider Student in an Organized Health Care Education/Training Program; Emergency Provider Emergency Medicine; PCP Family Medicine Adult Medicine; Visit Provider Internal Medicine
DX: E11.00 Type 2 diabetes mellitus with hyperosmolarity without nonketotic hyperglycemic-hyperosmolar coma (NKHHC) (principal); E87.6 Hypokalemia; N41.1 Chronic prostatitis; R35.89 Other polyuria; F41.9 Anxiety disorder, unspecified; F32.A Depression, unspecified; E66.9 Obesity, unspecified; I10 Essential (primary) hypertension; Z79.2 Long term (current) use of antibiotics; Z87.442 Personal history of urinary calculi; Z68.38 Body mass index [BMI] 38.0-38.9, adult; Z87.440 Personal history of urinary (tract) infections
CPT/HCPCS: 36415; 36416; 36600; 80048; 80053; 81003; 82009; 82803; 82947; 82962; 83036; 83735; 84153; 84443; 84484; 85025; 87086; 93005; 96361; 96365; 96372; 96375; 99285; J0696; J1650; J1815 ×2; J3480; J7030; J7050

== ENCOUNTER 2021-05-05 08:18 | Outpatient (CLI) | payer OTHER, SELFPAY ==
--- NOTE | 2021-05-05 08:00 | XR_ITS ---
WS: [id number] Exam: XR KUB [id number] Date/Time of Exam: 05/05/2021 8:25 AM Reason For Exam: RENAL STONES A 1.4 cm calcification superimposes the lower pole the left kidney and may represent a renal calculus . No sign of bowel obstruction or free air. No sign of organ enlargement. Regional bony structures ar e unremarkable. XR/XR KUB [id number] IMPRESSION: 1. 1.4 cm ovoid calcification superimposing the lower pole left kidney that may represent a renal stone. 2. No acute abdominal process.
== END 2021-05-05 08:19 | disposition home or self-care (01) ==
PROVIDERS: PCP Family Medicine Adult Medicine; Visit Provider Urology
DX: N20.0 Calculus of kidney (principal)
CPT/HCPCS: 74018; 81003

== ENCOUNTER → 2021-05-06 11:08 | Outpatient (BNVA) | payer OTHER, SELFPAY | PROVIDERS: PCP Family Medicine Adult Medicine; Referring Provider Family Medicine Adult Medicine; Visit Provider Internal Medicine | DX: E11.69 Type 2 diabetes mellitus with other specified complication (principal); E11.65 Type 2 diabetes mellitus with hyperglycemia; E66.9 Obesity, unspecified; E78.5 Hyperlipidemia, unspecified; Z68.38 Body mass index [BMI] 38.0-38.9, adult; Z79.4 Long term (current) use of insulin | CPT/HCPCS: 99204 ==

== ENCOUNTER 2021-06-09 12:08 | Outpatient (CLI) | payer OTHER, SELFPAY ==
[2021-06-09 13:13] LABS: Chol HDL Ratio 6.39 mg/dL (1.0-5.00); Cholesterol 211 mg/dL (0-200); HDL Cholesterol 33 mg/dL (60-100); LDL Cholesterol Calculated 134 mg/dL (50-129); LDL HDL Ratio 4.06 RATIO (0.00-3.22); Triglycerides 221 mg/dL (0-150)
== END 2021-06-09 12:09 | disposition home or self-care (01) ==
LOC: LAB 12:14
PROVIDERS: PCP Family Medicine Adult Medicine; Visit Provider Internal Medicine
DX: E11.65 Type 2 diabetes mellitus with hyperglycemia (principal); E11.69 Type 2 diabetes mellitus with other specified complication; E66.9 Obesity, unspecified
CPT/HCPCS: 80061

== ENCOUNTER → 2021-06-10 10:32 | Outpatient (BNVA) | payer OTHER, SELFPAY | PROVIDERS: PCP Family Medicine Adult Medicine; Visit Provider Internal Medicine | DX: E11.69 Type 2 diabetes mellitus with other specified complication (principal); E66.9 Obesity, unspecified; E78.5 Hyperlipidemia, unspecified; Z79.84 Long term (current) use of oral hypoglycemic drugs; Z68.37 Body mass index [BMI] 37.0-37.9, adult | CPT/HCPCS: 99214 ==

== ENCOUNTER → 2021-09-09 10:31 | Outpatient (BNVA) | payer OTHER, SELFPAY | PROVIDERS: PCP Family Medicine Adult Medicine; Visit Provider Family Medicine Adult Medicine | DX: E11.65 Type 2 diabetes mellitus with hyperglycemia (principal); E11.69 Type 2 diabetes mellitus with other specified complication; E66.9 Obesity, unspecified; I10 Essential (primary) hypertension; J30.9 Allergic rhinitis, unspecified | CPT/HCPCS: 80053; 83036 ==

== ENCOUNTER → 2021-10-28 15:39 | Outpatient (BNVA) | payer OTHER, SELFPAY | PROVIDERS: PCP Family Medicine Adult Medicine; Visit Provider Family Medicine Adult Medicine | DX: E78.5 Hyperlipidemia, unspecified (principal); E87.6 Hypokalemia; I10 Essential (primary) hypertension | CPT/HCPCS: 80048; 80061 ==

== ENCOUNTER → 2022-01-30 11:03 | Outpatient (BNVA) | payer OTHER, SELFPAY | PROVIDERS: PCP Family Medicine Adult Medicine; Visit Provider Family Medicine Adult Medicine | DX: E78.5 Hyperlipidemia, unspecified (principal); E11.65 Type 2 diabetes mellitus with hyperglycemia; E66.9 Obesity, unspecified; N20.0 Calculus of kidney; I10 Essential (primary) hypertension; N52.9 Male erectile dysfunction, unspecified | CPT/HCPCS: 80053; 80061; 83036; 84403; 84443 ==

== ENCOUNTER → 2022-04-24 14:37 | Outpatient (BNVA) | payer OTHER, SELFPAY | PROVIDERS: PCP Family Medicine Adult Medicine; Visit Provider Family Medicine Adult Medicine | DX: N23 Unspecified renal colic (principal); Z23 Encounter for immunization; R25.2 Cramp and spasm; M54.9 Dorsalgia, unspecified; E78.5 Hyperlipidemia, unspecified; E66.9 Obesity, unspecified; E11.69 Type 2 diabetes mellitus with other specified complication; E11.65 Type 2 diabetes mellitus with hyperglycemia; N20.0 Calculus of kidney; J30.9 Allergic rhinitis, unspecified; E87.6 Hypokalemia; F41.9 Anxiety disorder, unspecified; I10 Essential (primary) hypertension; F32.9 Major depressive disorder, single episode, unspecified | CPT/HCPCS: 80053; 80061; 81000; 82043; 83036 ==

== ENCOUNTER 2022-07-27 15:09 | Outpatient (CLI) | payer OTHER, SELFPAY ==
[2022-07-27 16:02] LABS: Estmated Average Glucose 146; Hemoglobin A1C 6.7 % (4.0-6.0)
[2022-07-27 18:28] LABS: Alanine Aminotransferase 24 U/L (0-41); Albumin Level 4.6 g/dL (3.5-5.2); Alkaline Phosphatase 96 U/L (40-130); Anion Gap 20.2 (5-19); Aspartate Amino Transferase 19 U/L (0-40); Blood Urea Nitrogen 16 mg/dL (6-20); Calcium 9.8 mg/dL (8.5-10.5); Carbon Dioxide 28 mmol/L (22-29); Chloride 98 mmol/L (98-107); Chol HDL Ratio 6.63 mg/dL (1.0-5.00); Cholesterol 285 mg/dL (0-200); Globulin 3.2 g/dL (1.3-4.6); Glomerular Filtration Rate 80.8 mL/min (90-130); Glucose 82 mg/dL (65-115); HDL Cholesterol 43 mg/dL (60-100); LDL Cholesterol Calculated 191 mg/dL (50-129); LDL HDL Ratio 4.44 RATIO (0.00-3.22); Osmolality Calculated 294 mOsm/kg (285-295); Potassium 4.2 mmol/L (3.5-5.1); Sodium 142 mmol/L (136-145); Total Bilirubin 0.4 mg/dL (0.15-1.2); Total Protein 7.8 g/dL (6.6-8.7); Triglycerides 253 mg/dL (0-150)
== END 2022-07-27 15:10 | disposition home or self-care (01) ==
PROVIDERS: PCP Family Medicine Adult Medicine; Visit Provider Internal Medicine
DX: E11.69 Type 2 diabetes mellitus with other specified complication (principal); E66.9 Obesity, unspecified; E78.5 Hyperlipidemia, unspecified
CPT/HCPCS: 36415; 80053; 80061; 83036

== ENCOUNTER → 2022-11-24 15:02 | Outpatient (BNVA) | payer OTHER, SELFPAY | PROVIDERS: PCP Family Medicine Adult Medicine; Visit Provider Internal Medicine | DX: E11.69 Type 2 diabetes mellitus with other specified complication (principal); E66.9 Obesity, unspecified; E78.5 Hyperlipidemia, unspecified | CPT/HCPCS: 80053; 80061; 82043; 83036 ==

== ENCOUNTER → 2023-04-30 10:41 | Outpatient (BNVA) | payer OTHER, SELFPAY | PROVIDERS: PCP Family Medicine Adult Medicine; Visit Provider Family Medicine Adult Medicine | DX: R31.9 Hematuria, unspecified (principal); B37.49 Other urogenital candidiasis | CPT/HCPCS: 81000 ==

== ENCOUNTER → 2023-07-02 11:33 | Outpatient (BNVA) | payer OTHER, SELFPAY | PROVIDERS: PCP Family Medicine Adult Medicine; Visit Provider Internal Medicine | DX: E11.69 Type 2 diabetes mellitus with other specified complication (principal); E66.9 Obesity, unspecified; E78.5 Hyperlipidemia, unspecified | CPT/HCPCS: 36415; 80053; 80061; 82044; 83036; 84681; 86337; 86341 ==

== ENCOUNTER → 2023-11-05 08:34 | Outpatient (BNVA) | payer OTHER, SELFPAY | PROVIDERS: PCP Family Medicine Adult Medicine; Visit Provider Family Medicine Adult Medicine | DX: E11.69 Type 2 diabetes mellitus with other specified complication (principal); E66.9 Obesity, unspecified | CPT/HCPCS: 80053; 80061; 82043; 83036 ==

== ENCOUNTER → 2024-02-04 08:43 | Outpatient (BNVA) | payer OTHER, SELFPAY | PROVIDERS: PCP Family Medicine Adult Medicine; Visit Provider Family Medicine Adult Medicine | DX: E78.2 Mixed hyperlipidemia (principal); E11.69 Type 2 diabetes mellitus with other specified complication; E66.9 Obesity, unspecified; I10 Essential (primary) hypertension; F17.210 Nicotine dependence, cigarettes, uncomplicated; F41.9 Anxiety disorder, unspecified; F32.9 Major depressive disorder, single episode, unspecified; N52.9 Male erectile dysfunction, unspecified | CPT/HCPCS: 80053; 80061; 83036; 84403; 84443; 85025 ==

== ENCOUNTER 2024-03-19 17:53 | Emergency (ER) | payer OTHER, SELFPAY ==
[2024-03-19 17:59] VITALS: BP 187/116; PULSE 92; RESP 18; TEMP 36.5; O2SAT 97; BMI 34.3
--- NOTE | 2024-03-19 18:44 | W.ED.EYEPROB ---
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 Patient reported they continue to feel like he had something uncomfortable in his eye and he had taken out his contact lenses. Patient came in tonight due to some swelling and erythema to the eyelid and continued pain to the eye. Patient reports rubbing at his eye frequently. Related Data Home Medications Medication Instructions Recorded Confirmed loratadine 10 mg tablet (Claritin) 10 mg PO DAILY PRN Allergy Symptoms 12/24/20 02/21/24 Previous Rx's Medication Instructions Recorded epinephrine 0.125 mg/actuation 1 puff inhalation Q6H PRN 12/16/21 aerosol inhaler (Primatene Mist) bronchodilation #11.7 grams albuterol sulfate 90 mcg/actuation 2 puff inhalation QID PRN 07/23/22 aerosol inhaler (ProAir HFA) shortness of breath or wheezing #8.5 grams clotrimazole-betamethasone 1 1 applic topical BID excema #45 07/24/22 %-0.05 % topical cream grams amlodipine 10 mg tablet See Rx Instructions .Route 04/30/23 .COMPLEX #90 tabs lisinopril 20 1 tab PO DAILY blood pressure #30 04/30/23 mg-hydrochlorothiazide 25 mg tablet tabs sertraline 100 mg tablet 100 mg PO [facility] #30 04/30/23 tabs potassium chloride 20 mEq 40 meq (2 x 20 mEq) PO DAILY 09/29/23 tablet,extended release(part/cryst) Hypokalemia #180 tabs hydroxyzine HCl 25 mg tablet 25 mg PO .q hs PRN 11/05/23 allergies/itching #30 tabs blood-glucose meter,continuous #1 ea 11/24/23 (Dexcom G7 Automobile Salesman) blood-glucose sensor (Dexcom G7 #6 ea 01/14/24 Sensor device) atorvastatin 80 mg tablet 80 mg PO DAILY #90 tabs 02/04/24 tirzepatide 2.5 mg/0.5 mL See Rx Instructions .Route 03/06/24 subcutaneous pen injector .COMPLEX #2 mL (Mounjaro) Allergies Allergy/AdvReac Type Severity Reaction Status Date / Time empagliflozin Allergy Intermediate ADR-Dizzine Verified 02/21/24 07:28 [From Jardiance] ss codeine Allergy rash Verified 02/21/24 07:28 Penicillins Allergy rash Verified 02/21/24 07:28 Review of Systems General: Reports: 10 or more systems reviewed and unremarkable except in HPI and below PFSH ED PFSH: Medical History Cigarette smoker motivated to quit Bilateral leg cramps Hypokalemia Allergic rhinitis due to allergen Umbilical hernia without mention of obstruction or gangrene Diabetes mellitus type 2 in obese Bilateral renal stones Coincidental discovery on CT scan December and Mar 2021. Bilateral non-obstructing renal stones, left greater than sign right. Exercise-induced coughing episode Erectile dysfunction Hypertension Uncontrolled hypertension Anxiety and depression Obesity (BMI 35.0-39.9 without comorbidity) Surgical History H/O hernia repair Family History Other Cancer Diabetes Hypertension Social History Smoking and tobacco/nicotine status: current every day tobacco/nicotine user cigarettes Packs smoked per day: 1.5 Alcohol intake: current Alcohol intake frequency: few times a month Substance/Drug Use: never Adopted: No Caregiver/support person: No Lives independently: Yes Marital status: Number of children: 4 Number of grandchildren: 0 Current occupational status: employed Current gender identity: Male Physical Exam Const: COMMON NORMALS: alert HENMT: COMMON NORMALS: normocephalic HEAD & SCALP: normocephalic Eye: COMMON NORMALS: Equal, round and reactive pupils present GENERAL EYE: normal light reflex VISUAL ACUITY: Yes acuity normal ALIGNMENT: Yes alignment normal PERIORBITAL: periorbital findings abnormal EYELID: eyelid abnormality right upper eyelid erythema and swelling and right lower eyelid erythema and swelling CONJUNCTIVA: Yes conjunctival abnormal positive right conjunctival injection SCLERA: scleral abnormal Laterality of scleral abnormality: positive right scleral injection CORNEA: Yes fluorescein used PUPIL: Yes Equal, round and reactive pupils present EOM: Yes EOM abnormal DIRECT OPHTHALMOSCOPY: Yes normal light reflex SLIT LAMP EXAM: Yes slit lamp exam performed with fluorescein and Yes cornea Cornea details: linear corneal abrasion Neck/C-Spine: COMMON NORMALS: full ROM Chest: COMMONS NORMALS: normal inspection of the chest Resp: COMMON NORMALS: normal respiratory effort and clear to auscultation bilaterally AUSCULTATION: clear to auscultation bilaterally Cardio: COMMON NORMALS: regular rate RATE: regular rate GI: COMMON NORMALS: non-tender Back/Pelvis: COMMON NORMALS: thoracic and lumbar spine normal to inspection Extremity: COMMON NORMALS: normal to inspection Neuro: SENSORIUM/ORIENTATION: Yes alert Skin: COMMON NORMALS: turgor normal GENERAL SKIN EXAM: turgor normal Course Vital Signs: Vital signs: Vital Signs Temperature 97.7 F 03/19/24 17:59 Pulse Rate 92 03/19/24 17:59 Respiratory Rate 18 03/19/24 17:59 Blood Pressure 187/116 03/19/24 17:59 Pulse Oximetry 97 03/19/24 17:59 Oxygen Delivery Me thod Room Air 03/19/24 17:59 MDM - Eye Problem Medical Decision Making 48-year-old male patient comes in today with a feeling of foreign body in the right eye. On exam patient has some mild erythema and swelling to the bilateral eyelids on the right side. Under fluorescein staining it was noted a linear abrasion to the cornea approximately 4 mm in length. Remainder of exam was unremarkable. Differential diagnosis includes not limited to conjunctivitis, corneal abrasion, retained foreign body. Believe patient probably has corneal abrasion. Patient had immediate relief of symptoms with the use of tetracaine. Patient be kept on Maxitrol eyedrops recommended to go without contacts for 1 week and to follow-up with eye child care attendant school in 3 days. No radiology studies performed this visit Discharge Plan Discharge Patient Disposition: Home Clinical Impression: Corneal abrasion Condition: Stable Prescriptions: No Action Primatene Mist 0.125 mg/actuation HFA aerosol inhaler 1 puff inhalation Q6H PRN (Reason: bronchodilation) Qty: 11.7 3RF Rx Instructions: may repeat once after 1 minute loratadine [Claritin] 10 mg tablet 10 mg PO DAILY PRN (Reason: Allergy Symptoms) clotrimazole-betamethasone 1-0.05 % cream 1 applic topical BID Qty: 45 0RF sertraline 100 mg tablet 100 mg PO QAM Qty: 30 5RF lisinopril-hydrochlorothiazide 20-25 mg tablet 1 tab PO DAILY Qty: 30 5RF amlodipine 10 mg tablet See Rx Instructions .ROUTE .COMPLEX Qty: 90 1RF Dose Instruction: Take 1 tablet by mouth once daily for 30 days Rx Instructions: Take 1 tablet by mouth once daily for 30 days hydroxyzine HCl 25 mg tablet 25 mg PO .q hs PRN (Reason: allergies/itching) Qty: 30 1RF (DME) Dexcom G7 Automobile Salesman Misc See Rx Instructions .Route Qty: 1 0RF Rx Instructions: As directed atorvastatin 80 mg tablet 80 mg PO DAILY Qty: 90 1RF Rx Instructions: Take one tablet by mouth daily. albuterol sulfate [ProAir HFA] 90 mcg/actuation HFA aerosol inhaler 2 puff inhalation QID PRN (Reason: shortness of breath or wheezing) Qty: 8.5 3RF potassium chloride 20 mEq tablet,ER particles/crystals 40 meq PO DAILY Qty: 180 1RF (DME) Dexcom G7 Sensor Device See Rx Instructions .ROUTE .COMPLEX Qty: 6 0RF Dose Instruction: USE DIRECTED Rx Instructions: USE DIRECTED Mounjaro 2.5 mg/0.5 mL pen injector See Rx Instructions .ROUTE .COMPLEX Qty: 2 1RF Dose Instruction: INJECT 2.5mg (0.5ml) EVERY 7 DAYS Rx Instructions: INJECT 2.5mg (0.5ml) EVERY 7 DAYS Discharge Orders: Discharge ED (Routine); Ordered 03/19/24 Ordered By: Catarino Cavaozs Referrals: Chava Paniagua MD [Primary Care Provider] - Discharge Diet: Usual diet Discharge Activity: Increase activity as tolerated Patient Instructions: Corneal Abrasion (ED) Activity Restrictions/Additional Instructions: Home and rest. Use the antibiotic eyedrops, pink lid, 1 drop 4 times a day while awake for the next 7 days. Use the pain relieving eyedrops, white lid, 1 drop every 1-3 hours as needed for severe eye pain for the next 48 hours. Do not use the pain eyedrops for longer than that. Follow-up with eye child care attendant school in 3 days for recheck. Return to ER for new concerns. Coding Level of Care Code ED Baggagemaster for Melissa Mercado
[2024-03-19] MEDS: tetracaine 0.5% Op Soln 4 mL Btl 1 DROP EYE-RIGHT (19:11)
[2024-03-19] MEDS: fluorescein 1 mg Strip EYE-RIGHT (19:18)
[2024-03-19] MEDS: neomycin-poly-dex Op 5 mL Btl 2 DROP EYE-RIGHT (19:18)
[2024-03-19 19:37] VITALS: BP 142/89; PULSE 81; O2SAT 96
== END 2024-03-19 19:35 | disposition home or self-care (01) ==
PROVIDERS: Emergency Provider Nurse Practitioner Family; PCP Family Medicine Adult Medicine
DX: S05.01XA Injury of conjunctiva and corneal abrasion without foreign body, right eye, initial encounter (principal); Z79.85 Long-term (current) use of injectable non-insulin antidiabetic drugs; F17.210 Nicotine dependence, cigarettes, uncomplicated; E11.9 Type 2 diabetes mellitus without complications; I10 Essential (primary) hypertension; X58.XXXA Exposure to other specified factors, initial encounter
CPT/HCPCS: 99283

== ENCOUNTER → 2024-06-21 16:18 | Outpatient (BNVA) | payer OTHER, SELFPAY | PROVIDERS: PCP Family Medicine Adult Medicine; Visit Provider Internal Medicine | DX: E11.69 Type 2 diabetes mellitus with other specified complication (principal); E66.9 Obesity, unspecified | CPT/HCPCS: 80053; 80061; 82043; 83036 ==

== ENCOUNTER → 2024-06-29 15:18 | Outpatient (BNVA) | payer OTHER, SELFPAY | DX: Z12.5 Encounter for screening for malignant neoplasm of prostate (principal); M54.50 Low back pain, unspecified; R25.2 Cramp and spasm | CPT/HCPCS: G0103 ==

== ENCOUNTER → 2024-07-21 13:41 | Outpatient (BNVA) | payer OTHER, SELFPAY | PROVIDERS: Visit Provider Emergency Medicine | DX: M79.672 Pain in left foot (principal) | CPT/HCPCS: 73630 ==

== ENCOUNTER 2024-08-16 16:59 | Outpatient (CLI) | payer OTHER, SELFPAY | END 2024-08-16 17:00 | disposition home or self-care (01) | PROVIDERS: Visit Provider Internal Medicine | DX: E11.69 Type 2 diabetes mellitus with other specified complication (principal); E66.9 Obesity, unspecified; E78.2 Mixed hyperlipidemia | CPT/HCPCS: 80053; 80061; 82043; 83036 ==

== ENCOUNTER 2024-08-17 16:10 | Outpatient (CLI) | payer OTHER, SELFPAY ==
[2024-08-17 18:31] LABS: Creatinine Urine, Random 43 mg/dL (39-259); Microalbumin Random Urine 3 ug/dL (0-20)
[2024-08-17 18:32] LABS: Microalbum Creatinine Ratio Ur 70 mg/dL (0-20)
== END 2024-08-17 16:11 | disposition home or self-care (01) ==
LOC: LAB 16:17
PROVIDERS: Visit Provider Internal Medicine
DX: E11.69 Type 2 diabetes mellitus with other specified complication (principal); E66.9 Obesity, unspecified; E78.2 Mixed hyperlipidemia
CPT/HCPCS: 82044

== ENCOUNTER 2024-08-22 15:08 | Emergency (ER) | payer OTHER, SELFPAY ==
[2024-08-22] VITALS (7 sets, daily range): BP systolic 121–159; BP diastolic 92–103; PULSE 83–107; RESP 16–20; TEMP 36.5; O2SAT 95–100; BMI 34.1
[2024-08-22 15:57] LABS: Add Urine Microscopic? YES; UA Manual Slide Review YES; UA Slide Review UA Slide Review Perf; Urine Color Red (Yellow)
[2024-08-22 15:58] LABS: RBC Urine TOO NUMEROUS TO CNT /hpf (0-2)
[2024-08-22 15:59] LABS: Bacteria Urine TRACE /hpf; Hyaline Casts Urine 0-4 /lpf; Squamous Epithelial Cell Urine 0-4 /hpf (0-5)
[2024-08-22 16:00] LABS: Add Urine Culture? Yes
[2024-08-22 16:50] LABS: Basophils # 0.1 10^3/uL (0.0-0.1); Basophils % 0.5 %; Eosinophils # 0.4 10^3/uL (0.0-0.8); Eosinophils % 2.1 %; Hematocrit 47.7 % (37-53); Lymphocytes # 3.7 10^3/uL (0.8-4.8); Lymphocytes % 20.2 %; Mean Corpuscular HGB Conc 34.6 g/dL (30-55); Mean Corpuscular Hemoglobin 29.5 pg (27-33); Mean Corpuscular Volume 85.3 fl (82-101); Monocytes # 0.8 10^3/uL (0.2-0.9); Monocytes % 4.4 %; Neutrophils # 13.18 10^3/uL (1.8-7.7); Neutrophils % 72.4 %; Nucleated Red Blood Cells % 0 %; Platelet Count 347 10^3/cmm (157-399); Red Blood Count 5.59 10^6/uL (3.85-5.65); Red Cell Distribution Width 12.5 % (12.1-15.1); White Blood Count 18.21 10^3/uL (3.29-11.43)
[2024-08-22 17:09] LABS: Alanine Aminotransferase 29 U/L (0-41); Albumin Level 4.2 g/dL (3.5-5.2); Alkaline Phosphatase 123 U/L (40-130); Anion Gap 16.1 (5-19); Aspartate Amino Transferase 15 U/L (0-40); Blood Urea Nitrogen 11 mg/dL (6-20); Calcium 9.6 mg/dL (8.5-10.5); Carbon Dioxide 25 mmol/L (22-29); Chloride 100 mmol/L (98-107); Creatinine Clr Calc Pharmacy 180.0628; Globulin 2.8 g/dL (1.3-4.6); Glomerular Filtration Rate 120.9 mL/min (90-130); Glucose 337 mg/dL (65-115); Osmolality Calculated 299 mOsm/kg (285-295); Potassium 3.1 mmol/L (3.5-5.1); Sodium 138 mmol/L (136-145); Total Bilirubin 0.6 mg/dL (0.15-1.2)
--- NOTE | 2024-08-22 18:49 | CTR_ITS ---
PROCEDURE INFORMATION: Exam: CT Abdomen And Pelvis With Contrast Exam date and time: 08/22/2024 8:16 PM Age: 49 years old Clinical indication: Abdominal pain; Flank; Left; Additional info: Bilateral flank pain/low back pain/hematuria TECHNIQUE: Imaging protocol: Computed tomography of the abdomen and pelvis with contrast. Radiation optimization: All CT scans at this facility use at least one of these dose optimization techniques: automated exposure control; mA and/or kV adjustment per patient size (includes targeted exams where dose is matched to clinical indication); or iterative reconstruction. Contrast material: OMNIPAQUE 350; Contrast volume: 100 ml; Contrast route: INTRAVENOUS (IV); COMPARISON: CT kidney stone [id number] 03/24/2021 1:09 PM RADIATION DOSE METRICS: Total DLP (mGy-cm): 1057.43 FINDINGS: Liver: Normal. No mass. Gallbladder and biliary ducts: Normal. No calcified stones. No ductal dilation. Pancreas: Normal. No ductal dilation. Spleen: Normal. No splenomegaly. Adrenal glands: There is a hypodense lesion in the left adrenal gland measuring 3.0 cm in 27 Hounsfield units. This is indeterminate and while this was present on the abdominal CT dated 12/16/2020 it has increased in size in the interim and a three-phase adrenal CT or adrenal MRI may be of benefit to more fully characterize this finding. Kidneys and ureters: There is a nonobstructing 4 mm stone in the right kidney. No hydronephrosis. There is a nonobstructing 10 mm stone in the left kidney with no hydronephrosis. Left simple appearing renal cyst is present which does not need further follow-up. Stomach and bowel: Unremarkable. No obstruction. No mucosal thickening. Appendix: No evidence of appendicitis. Intraperitoneal space: Unremarkable. No free air. No significant fluid collection. Vasculature: Unremarkable. No abdominal aortic aneurysm. Lymph nodes: Unremarkable. No enlarged lymph nodes. Urinary bladder: There is circumferential bladder wall thickening which while nonspecific can be seen in the setting of cystitis. Correlate with UA. Reproductive: Unremarkable as visualized. Bones/joints: Unremarkable. No acute fracture. Soft tissues: Unremarkable. CT/CT abdomen pelvis w con* [id number] IMPRESSION: 1. No bowel obstruction or inflammatory process associated with the bowel. 2. No free air or significant free fluid in the abdomen or pelvis. 3. No evidence of appendicitis. 4. There is a hypodense lesion in the left adrenal gland measuring 3.0 cm in 27 Hounsfield units. This is indeterminate and while this was present on the abdominal CT dated 12/16/2020 it has increased in size in the interim and a three-phase adrenal CT or adrenal MRI may be of benefit to more fully characterize this finding. 5. There is circumferential bladder wall thickening which while nonspecific can be seen in the setting of cystitis. Correlate with UA. COMMENTS: Consistent with the [employer]'s Incidental Findings Committee white paper (J Am Alissa Radiol 2018): Any incidental renal lesion less than 1 cm or classified as too small to characterize, or any incidental cystic renal lesion characterized as simple-appearing, is likely benign. No follow-up imaging is recommended for these lesions per consensus recommendations based on imaging criteria.
--- NOTE | 2024-08-22 19:25 | ED_ITS ---
HPI - Male Genitourinary 2 General: Chief complaint: Urogenital-Male Stated complaint: low back pain (Bloody urine) Time Seen by Provider: 08/22/24 18:43 Source: patient Mode of arrival: ambulatory Limitations: no limitations History of Present Illness: Patient is a 49-year-old male who presents the emergency department complaining of lower back pain. He states that symptoms have been going on for about a month, got concerned with the amount of hematuria he has had over the past few days as well as dysuria. He does note a history of both prostatitis and kidney stones. He states he is having some pain to his bilateral flanks, had an episode of vomiting yesterday. States that he used to see urology but that he retired so he has not seen anyone since. He is a lifelong smoker. No nausea or diarrhea, chest pain or shortness of breath, or other symptoms reported at this time. He states that the pain feels like someone is bawling a fist and forcing it into his sides, bilaterally. MD Complaint: dysuria and other (Hematuria, low back pain/flank pain) Onset (ago): month(s) Duration: constant and progressively worsening Location: right flank and left flank Radiation: right flank and left flank Severity: moderate Relieving factors: none Exacerbating factors: urination and movement Associated symptoms: Reports dysuria, hematuria and vomiting; Deny nausea Related Data Home Medications ?Medication ?Instructions ?Recorded ?Confirmed loratadine 10 mg tablet (Claritin) 10 mg PO DAILY PRN Allergy Symptoms 12/24/20 08/17/24 potassium chloride 20 mEq oral 20 meq PO BID 06/29/24 08/17/24 packet (Klor-Con) tamsulosin 0.4 mg capsule 0.4 mg PO DAILY 06/29/2401/03 Previous Rx's ?Medication ?Instructions ?Recorded epinephrine 0.125 mg/actuation 1 puff inhalation Q6H P RN 12/16/21 aerosol inhaler (Primatene Mist) bronchodilation #11.7 grams potassium chloride 20 mEq 40 meq (2 x 20 mEq) PO DAILY 09/29/23 tablet,extended release(part/cryst) Hypokalemia #180 t abs blood-glucose meter,continuous #1 ea 11/24/23 (Dexcom G7 Batterboard Setter) amlodipine 10 mg tablet See Rx Instructions .Route 0 03/27/24 .COMPLEX #90 tabs albuterol sulfate 90 mcg/actuation 2 puff inhalation Q ID PRN 06/29/24 aerosol inhaler shortness of breath or wheez ing #8.5 grams atorvastatin 40 mg tablet 40 mg PO DAILY #30 tabs 06/11 04/04 clotrimazole-betamethasone 1 1 applic topical BID exce ma #45 06/29/24 %-0.05 % topical cream grams lisinopril 30 mg tablet 30 mg PO DAILY #30 tabs 06/11 04/04 sertraline 100 mg tablet 100 mg PO QA Mental Health #30 06/29/24 tabs ibuprofen 800 mg tablet 800 mg PO Q8H PRN pain #30 t abs 07/21/24 nystatin 100,000 unit/gram topical 1 applic topical TI D #30 grams 08/14/24 powder blood-glucose sensor (Dexcom G7 #6 ea 08/18/24 Sensor device) fluconazole 150 mg tablet 150 mg PO .weekly #1 tab 02/02 insulin glargine 100 unit/mL (3 40 unit (0.4 mL) SUBCU T DAILY #45 08/18/24 mL) subcutaneous pen (Lantus mL Solostar U-100 Insulin) tirzepatide 10 mg/0.5 mL 10 mg (0.5 mL) SUBCUT Q7D #2 mL 08/18/24 subcutaneous pen injector (Mounjaro) tirzepatide 7.5 mg/0.5 mL 7.5 mg (0.5 mL) SUBCUT Q7D 1 month 08/18/24 subcutaneous pen injector #2 mL (Mounjaro) cefdinir 300 mg capsule 300 mg PO BID 10 days #20 ca ps 08/22/24 Allergies Allergy/AdvReac Type Severity Reaction Status Date / Time empagliflozin (From Allergy Intermediate ADR-Dizzine Verified 08/22/24 15:19 Jardiance) ss codeine Allergy rash Verified 08/22/24 15:19 Penicillins Allergy rash Verified 08/22/24 15:19 Review of Systems 2 General: Reports: 10 or more systems reviewed and unremarkable except in HPI and below Const: Denies: fever(s), chills, change in appetite, change in weight or diaphoresis ENMT: Denies: throat pain or hoarseness Card: Denies: chest pain, palpitations or lightheadedness Resp: Denies: dyspnea, productive cough or wheezing GI: Reports: vomiting; Denies: abdominal pain, nausea, diarrhea, constipation, bloating, change in stool character or hematochezia : Reports: flank pain, dysuria and hematuria; Denies: difficulty urinating, urinary frequency or urinary urgency Musc: Reports: back pain; Denies: neck pain Skin/Breast: Denies: rash or new lesions Neuro: Denies: headache(s) or dizziness PFSH ED 2 PFSH: Medical History Lower back pain Screening for prostate cancer Cigarette smoker motivated to quit Bilateral leg cramps Hypokalemia Allergic rhinitis due to allergen Umbilical hernia without mention of obstruction or gangrene Diabetes mellitus type 2 in obese Bilateral renal stones Coincidental discovery on CT scan December and Mar 2021. Bilateral non- obstructing renal stones, left greater than sign right. Exercise-induced coughing episode Erectile dysfunction Hypertension Uncontrolled hypertension Anxiety and depression Obesity (BMI 35.0-39.9 without comorbidity) Surgical History H/O hernia repair Family History Other Cancer Diabetes Hypertension Social History Smoking and tobacco/nicotine status: never used tobacco/nicotine Alcohol intake: current Alcohol intake frequency: few times a month Substance/Drug Use: never Adopted: No Caregiver/support person: No Lives independently: Yes Marital status: Number of children: 4 Number of grandchildren: 0 Current occupational status: employed Current gender identity: Male Physical Exam 2 Const: COMMON NORMALS: no acute distress, patient oriented x3, no limitations, healthy appearing, alert and well nourished GENERAL APPEARANCE: cooperative and comfortable NUTRITIONAL APPEARANCE: obese ORIENTATION/CONSCIOUSNESS: Y es awake HENMT: COMMON NORMALS: normocephalic, atraumatic, hearing grossly normal bilaterally, external ears normal, Normal external nose present, Normal nasal mucous membranes and turbinates present and moist oral mucous membranes HEAD & SCALP: normocephalic and atraumatic NOSE: Normal external nose present and Normal nasal mucous membranes and turbinates present EXTERNAL EAR: Yes external ears normal Eye: COMMON NORMALS: Equal, round and reactive pupils present, EOMs intact bilaterally, conjunctivae normal and normal visual vasquez by confrontation C ONJUNCTIVA: Yes conjunctivae normal PUPIL: Yes Equal, round and reactive pupils present Neck/C-Spine: COMMON NORMALS: full ROM, supple, no meningeal signs and no JVD Resp: COMMON NORMALS: normal respiratory effort, No retractions, No use of accessory muscles and clear to auscultation bilaterally AUSCULTATION: clear to auscultation bilaterally, no crackles, no rales, no rhonchi and no wheezes Cardio: COMMON NORMALS: no JVD, regular rate, regular rhythm, S1 normal heart sound present, S2 normal heart sound present, No gallops present (Cardio), No clicks present (Cardio), No murmurs present (Cardio), No rub (Cardio) and Peripheral pulses 2+ throughout RATE: regular rate RHYTHM: regular rhythm HEART SOUNDS: S1 normal heart sound present and S2 normal heart sound present PERIPHERAL PULSES: Peripheral pulses 2+ throughout GI: COMMON NORMALS: Normal to inspection, nondistended, normoactive bowel sounds present, Soft to palpation, non-tender, No hepatosplenomegaly present and no masses AUSCULTATION: Yes normoactive bowel sounds PALPATION: Yes Soft to palpation, No Guarding due to palpation present (GI), No Rigid due to palpation and Yes No hepatosplenomegaly present RECTAL EXAM: Yes deferred : OTHER: Bilateral CVA tenderness to palpation, left worse than right. Back/Pelvis: OTHER: Reproducible tenderness to palpation of bilateral paralumbar muscles, no bruising or signs of trauma Extremity: COMMON NORMALS: normal to inspection and full ROM Neuro: COMMON NORMALS: patient oriented x3, moves all extremities, no focal motor deficits and no sensory deficits noted SENSORIUM/ORIENTATION: Yes alert MENINGEAL SIGNS: Yes no meningeal signs Psych: COMMON NORMALS: mental status grossly normal, cooperative and speech normal SPEECH: Yes normal speech Skin: COMMON NORMALS: no rashes or lesions noted GENERAL SKIN EXAM: no rashes or lesions noted Course 2 Vital Signs: Vital signs: Vital Signs Temperature 97.7 F 08/22/24 15:15 Pulse Rate 83 08/22/24 20:35 Respiratory Rate 16 08/22/24 20:35 Blood Pressure 157/102 08/22/24 20:35 Pulse Oximetry 98 08/22/24 20:35 Oxygen Delivery Me thod Room Air 08/22/24 20:35 MDM - Male Medical Decision Making Patient presented with a month of back pain and flank pain, however hematuria and dysuria began recently. Does note a history of multiple kidney stones, states that as of a couple weeks ago he passed a couple that he knows of. He does arrive with vitals essentially normal, was mildly tachycardic at triage though this was normalized during exam and prior to discharge his vitals were within normal limits. On exam he did have bilateral CVA tenderness, on CT there was presence of stones in the kidneys, though no complications with these. Overall on CT nothing new or acute, other than some bladder wall thickening which correlated with UA could indicate an acute bacterial infection. On his urinalysis there was too numerous red blood cells to count, but there was white blood cells present. His long history of smoking make me concerned for potential neoplasm though this was ruled out with CT, however if he continues to have blood in his urine I did refer him to urology for potential cystoscopy for this reason. White count was elevated to 18 here with his lab work, though upon noticing his past lab work his white count is always somewhat elevated. Kidney function was normal, his glucose was elevated secondary to his diagnosis of diabetes. Plan at this time is to refer to urology and start him on Omnicef, he notes improvement of his pain after receiving morphine and he was given a liter of fluids here. Discussed with him this plan, he is in agreement with this and he did verbalize understanding to the return precautions. Specifically if he has any fevers, nausea or vomiting, or worsening of pain or symptoms in general he is to return for further evaluation. Discussed case with Dr. Mishra here in the ED. Lab Data 08/22/24 16:23 08/22/24 16:23 Radiology Impressions Abdomen/Pelvis CT 08/22/24 18:49 IMPRESSION: 1. No bowel obstruction or inflammatory process associated with the bowel. 2. No free air or significant free fluid in the abdomen or pelvis. 3. No evidence of appendicitis. 4. There is a hypodense lesion in the left adrenal gland measuring 3.0 cm in 27 Hounsfield units. This is indeterminate and while this was present on the abdominal CT dated 12/16/2020 it has increased in size in the interim and a three-phase adrenal CT or adrenal MRI may be of benefit to more fully characterize this finding. 5. There is circumferential bladder wall thickening which while nonspecific can be seen in the setting of cystitis. Correlate with UA. COMMENTS: Consistent with the [employer]'s Incidental Findings Committee white paper (J Am Alissa Radiol 2018): Any incidental renal lesion less than 1 cm or classified as too small to characterize, or any incidental cystic renal lesion characterized as simple-appearing, is likely benign. No follow-up imaging is recommended for these lesions per consensus recommendations based on imaging criteria. Laboratory Results WBC 18.21 10^3/uL (3.29-11.43) H 08/22/24 16:23 RBC 5.59 10^6/uL (3.85-5.65) 08/22/24 16:23 Hgb 16.50 g/dL (11.27-16.99) 08/22/24 16:23 Hct 47.7 % (37-53) 08/22/24 16:23 MCV 85.3 fl (82-101) 08/22/24 16:23 MCH 29.5 pg (27-33) 08/22/24 16:23 MCHC 34.6 g/dL (30-55) 08/22/24 16:23 RDW 12.5 % (12.1-15.1) 08/22/24 16:23 Plt Count 347 10^3/cmm (157-399) 08/22/24 16:23 MPV 10.0 fL (7.4-10.4) 08/22/24 16:23 Neut % (Auto) 72.4 % 08/22/24 16:23 Lymph % (Auto) 20.2 % 08/22/24 16:23 [place] % (Auto) 4.4 % 08/22/24 16:23 Eos % (Auto) 2.1 % 08/22/24 16:23 Baso % (Auto) 0.5 % 08/22/24 16:23 Neut # (Auto) 13.18 10^3/uL (1.8-7.7) H 08/22/24 16:23 Lymph # (Auto) 3.7 10^3/uL (0.8-4.8) 08/22/24 16:23 [place] # (Auto) 0.8 10^3/uL (0.2-0.9) 08/22/24 16:23 Eos # (Auto) 0.4 10^3/uL (0.0-0.8) 08/22/24 16:23 Baso # (Auto) 0.1 10^3/uL (0.0-0.1) 08/22/24 16:23 Nucleated RBC % (auto) 0 % 08/22/24 16:23 Nucleated RBCs # 0.0 /100WBC 08/22/24 16:23 Sodium 138 mmol/L (136-145) 08/22/24 16:23 Potassium 3.1 mmol/L (3.5-5.1) L 08/22/24 16:23 Chloride 100 mmol/L (98-107) 08/22/24 16:23 Carbon Dioxide 25 mmol/L (22-29) 08/22/24 16:23 Anion Gap 16.1 (5-19) 08/22/24 16:23 BUN 11 mg/dL (6-20) 08/22/24 16:23 Creatinine 0.7 mg/dL (0.7-1.2) 08/22/24 16:23 GFR Calculation 120.9 mL/min (90-130) 08/22/24 16:23 Glucose 337 mg/dL (65-115) H 08/22/24 16:23 Calculated Osmolality 299 mOsm/kg (285-295) H 08/22/24 16:23 Calcium 9.6 mg/dL (8.5-10.5) 08/22/24 16:23 Total Bilirubin 0.6 mg/dL (0.15-1.2) 08/22/24 16:23 AST 15 U/L (0-40) 08/22/24 16:23 ALT 29 U/L (0-41) 08/22/24 16:23 Alkaline Phosphatase 123 U/L (40-130) 08/22/24 16:23 Total Protein 7.0 g/dL (6.6-8.7) 08/22/24 16:23 Albumin 4.2 g/dL (3.5-5.2) 08/22/24 16:23 Globulin 2.8 g/dL (1.3-4.6) 08/22/24 16:23 Urine Color Red (Yellow) A 08/22/24 15:25 Urine Appearance Not Reportable 08/22/24 15:25 Urine pH Not Reportable 08/22/24 15:25 Ur Specific [place] Not Reportable 08/22/24 15:25 Urine Protein Not Reportable 08/22/24 15:25 Urine Glucose (UA) Not Reportable 08/22/24 15:25 Urine Ketones Not Reportable 08/22/24 15:25 Urine Blood Not Reportable 08/22/24 15:25 Urine Nitrate Not Reportable 08/22/24 15:25 Urine Bilirubin Not Reportable 08/22/24 15:25 Urine Urobilinogen Not Reportable 08/22/24 15:25 Ur Leukocyte Esterase Not Reportable 08/22/24 15:25 Urine RBC Too numerous to cnt /hpf (0-2) H 08/22/24 15:25 Urine WBC 10-15 /hpf (0-5) H 08/22/24 15:25 Ur Squamous Epith Cells 0-4 /hpf (0-5) H 08/22/24 15:25 Amorphous Sediment Not Reportable 08/22/24 15:25 Urine Bacteria Trace /hpf (NONE) 08/22/24 15:25 Hyaline Casts 0-4 /lpf H 08/22/24 15:25 Urine Mucus None /hpf 08/22/24 15:25 All radiology interpretation(s) finalized by discharge Discharge Plan Discharge Patient Disposition: Home Clinical Impression: Acute hemorrhagic cystitis, History of kidney stones Condition: Stable Prescriptions: New cefdinir 300 mg capsule 300 mg PO BID 10 Days Qty: 20 0RF No Action Primatene Mist 0.125 mg/actuation HFA aerosol inhaler 1 puff inhalation Q6H PRN (Reason: bronchodilation) Qty: 11.7 3RF Rx Instructions: may repeat once after 1 minute loratadine [Claritin] 10 mg tablet 10 mg PO DAILY PRN (Reason: Allergy Symptoms) potassium chloride [Klor-Con] 20 mEq packet 20 meq PO BID tamsulosin 0.4 mg capsule 0.4 mg PO DAILY atorvastatin 40 mg tablet 40 mg PO DAILY Qty: 30 3RF Rx Instructions: Take one tablet by mouth daily. sertraline 100 mg tablet 100 mg PO QAM Qty: 30 3RF clotrimazole-betamethasone 1-0.05 % cream 1 applic topical BID Qty: 45 2RF albuterol sulfate 90 mcg/actuation HFA aerosol inhaler 2 puff inhalation QID PRN (Reason: shortness of breath or wheezing) Qty: 8.5 3RF lisinopril 30 mg tablet 30 mg PO DAILY Qty: 30 2RF ibuprofen 800 mg tablet 800 mg PO Q8H PRN (Reason: pain) Qty: 30 0RF (DME) Dexcom G7 Batterboard Setter Misc See Rx Instructions .Route Qty: 1 0RF Rx Instructions: As directed insulin glargine [Lantus Solostar U-100 Insulin] 100 unit/mL (3 mL) insulin pen 40 unit SUBCUT DAILY Qty: 45 1RF Rx Instructions: Start with 20 units daily (DME) Dexcom G7 Sensor Device See Rx Instructions .ROUTE .COMPLEX Qty: 6 2RF Dose Instruction: USE DIRECTED Rx Instructions: USE DIRECTED Mounjaro 10 mg/0.5 mL pen injector 10 mg SUBCUT Q7D Qty: 2 0RF Rx Instructions: inject 10mg weekly Mounjaro 7.5 mg/0.5 mL pen injector 7.5 mg SUBCUT Q7D 30 Days Qty: 2 0RF Rx Instructions: inject 7.5mg weekly for one month than increase dose to 10mg fluconazole 150 mg tablet 150 mg PO .weekly Qty: 1 2RF Rx Instructions: take one tab weekly for 3 doses potassium chloride 20 mEq tablet,ER particles/crystals 40 meq PO DAILY Qty: 180 1RF amlodipine 10 mg tablet See Rx Instructions .ROUTE .COMPLEX Qty: 90 1RF Dose Instruction: Take 1 tablet by mouth once daily for 30 days Rx Instructions: Take 1 tablet by mouth once daily for 30 days nystatin 100,000 unit/gram powder 1 applic topical TID Qty: 30 0RF Discharge Orders: Discharge ED (Routine); Ordered 08/22/24 Ordered By: Hugh Alejandro Referrals: Love Kaur NP [Primary Care Provider] - Patient Instructions: Urinary Tract Infection in Men (ED) Activity Restrictions/Additional Instructions: Follow-up with urology as we discussed. Please take your antibiotics as prescribed. Make sure that you are drinking plenty of fluids. Return with any fevers, significant nausea or vomiting, worsening of pain, or any other concerns that you have. Ibuprofen or Tylenol for pain. Print Language: Tristanian Coding Level of Care Code ED Packing Line Operator for Melissa Mercado
[2024-08-22] MEDS: sodium chloride 0.9% 1,000 ML 999 ML IV (19:26)
[2024-08-22] MEDS: ondansetron 2 mg/ML SDV 2 mL 8 MG IVP (19:31)
[2024-08-22] MEDS: morphine 4 mg/mL SDV 1 mL IVP (19:31)
[2024-08-22] MEDS: iohexol 350 mg/mL 500 mL Btl (per mL) IV (20:20)
[2024-08-22] MEDS: cefTRIAXone 1,000 mg SDV 1000 MG IVP (21:32)
--- NOTE | 2024-08-24 23:15 | DCPLANNER ---
referral sent to [facility] urology CAN HM
== END 2024-08-22 22:02 | disposition home or self-care (01) ==
PROVIDERS: Emergency Medicine; Emergency Provider Physician Assistant
DX: N30.01 Acute cystitis with hematuria (principal); Z87.442 Personal history of urinary calculi; E11.9 Type 2 diabetes mellitus without complications; I10 Essential (primary) hypertension; F17.210 Nicotine dependence, cigarettes, uncomplicated
CPT/HCPCS: 36415; 74177; 80053; 81001; 85025; 87086; 96361; 96374; 96375; 99285; J0696; J2270; J2405; J7030

== ENCOUNTER → 2024-08-25 09:33 | Outpatient (BNVA) | payer OTHER, SELFPAY | DX: N30.01 Acute cystitis with hematuria (principal); Z87.442 Personal history of urinary calculi; N52.03 Combined arterial insufficiency and corporo-venous occlusive erectile dysfunction; F41.9 Anxiety disorder, unspecified; F32.9 Major depressive disorder, single episode, unspecified; Z12.5 Encounter for screening for malignant neoplasm of prostate; R39.9 Unspecified symptoms and signs involving the genitourinary system | CPT/HCPCS: 81000; 85025; 87086; G0103 ==

== ENCOUNTER → 2024-10-10 17:18 | Outpatient (BNVA) | payer OTHER, SELFPAY | DX: I10 Essential (primary) hypertension (principal) | CPT/HCPCS: 82530; 83835 ==

== ENCOUNTER → 2024-10-11 16:58 | Outpatient (BNVA) | payer OTHER, SELFPAY | DX: I10 Essential (primary) hypertension (principal) | CPT/HCPCS: 82530 ==

== ENCOUNTER 2024-10-31 09:41 | Emergency (ER) | payer OTHER, SELFPAY ==
[2024-10-31] VITALS (9 sets, daily range): BP systolic 161–176; BP diastolic 103–117; PULSE 82–99; RESP 18; TEMP 36.6; O2SAT 94–100
[2024-10-31 10:20] LABS: Basophils # 0.1 10^3/uL (0.0-0.1); Basophils % 0.8 %; Eosinophils # 0.6 10^3/uL (0.0-0.8); Hematocrit 48.8 % (37-53); Lymphocytes # 3.3 10^3/uL (0.8-4.8); Lymphocytes % 27.4 %; Mean Corpuscular HGB Conc 34.4 g/dL (30-55); Mean Corpuscular Hemoglobin 29.4 pg (27-33); Mean Corpuscular Volume 85.5 fl (82-101); Mean Platelet Volume 9.3 fL (7.4-10.4); Monocytes # 0.7 10^3/uL (0.2-0.9); Monocytes % 5.8 %; Neutrophils # 7.25 10^3/uL (1.8-7.7); Neutrophils % 60.7 %; Nucleated Red Blood Cells % 0 %; Platelet Count 303 10^3/cmm (157-399); Red Blood Count 5.71 10^6/uL (3.85-5.65); Red Cell Distribution Width 12.8 % (12.1-15.1); White Blood Count 11.95 10^3/uL (3.29-11.43)
--- NOTE | 2024-10-31 10:22 | ED_ITS ---
HPI - Male Genitourinary 2 General: Chief complaint: Urogenital-Male Stated complaint: abd pain Time Seen by Provider: 10/31/24 09:44 History of Present Illness: 49-year-old male presents to the emergen cy room complaining of bilateral flank pain. Patient states he has known nephrolithiasis he was seen here for flank pain in August and had a CT done at that time he was referred to urology. He tells me that he worked up there and they are scheduling a lithotripsy per his report is to be in December. He denies any fever sweats or chills denies any dysuria no hematuria. Associated symptoms: Deny dysuria Related Data Previous Rx's ?Medication ?Instructions ?Recorded epinephrine 0.125 mg/actuation 1 puff inhalation Q6H P RN 12/16/21 aerosol inhaler (Primatene Mist) bronchodilation #11.7 grams atorvastatin 40 mg tablet 40 mg PO DAILY #30 tabs 06/11 04/04 lisinopril 30 mg tablet 30 mg PO DAILY #30 tabs 06/11 04/04 buspirone 7.5 mg tablet 7.5 mg PO TID #60 tabs 08/25 insulin glargine 100 unit/mL (3 40 unit (0.4 mL) SUBCU T DAILY #45 08/25/24 mL) subcutaneous pen (Lantus mL Solostar U-100 Insulin) tamsulosin 0.4 mg capsule 0.4 mg PO DAILY #30 caps tirzepatide 7.5 mg/0.5 mL 7.5 mg (0.5 mL) SUBCUT Q7D 1 month 09/08/24 subcutaneous pen injector #2.5 mL (Mounjaro) ciprofloxacin HCl 500 mg tablet 500 mg PO BID #14 tabs 10/31/24 hydrocodone 5 mg-acetaminophen 325 1 tab PO Q4H PRN pa in #28 tabs 10/31/24 mg tablet promethazine 25 mg tablet 25 mg PO Q6H PRN nausea and 10/31/24 vomiting #20 tabs Allergies Allergy/AdvReac Type Severity Reaction Status Date / Time empagliflozin (From Allergy Intermediate ADR-Dizzine Verified 08/25/24 09:04 Jardiance) ss codeine Allergy rash Verified 08/25/24 09:04 Penicillins Allergy rash Verified 08/25/24 09:04 Review of Systems 2 Const: Denies: fever(s) or chills Card: Denies: chest pain Resp: Denies: dyspnea GI: Denies: abdominal pain : Reports: flank pain (Bilateral); Denies: dysuria, urinary frequency or urinary urgency Musc: Denies: neck pain or back pain Skin/Breast: Denies: rash PFSH ED 2 PFSH: Medical History Lower back pain Screening for prostate cancer Cigarette smoker motivated to quit Bilateral leg cramps Hypokalemia Allergic rhinitis due to allergen Umbilical hernia without mention of obstruction or gangrene Diabetes mellitus type 2 in obese Bilateral renal stones Coincidental discovery on CT scan December and Mar 2021. Bilateral non- obstructing renal stones, left greater than sign right. Exercise-induced coughing episode Erectile dysfunction Hypertension Uncontrolled hypertension Anxiety and depression Obesity (BMI 35.0-39.9 without comorbidity) Surgical History H/O hernia repair Family History Other Cancer Diabetes Hypertension Social History Smoking and tobacco/nicotine status: never used tobacco/nicotine Alcohol intake: current Alcohol intake frequency: few times a month Substance/Drug Use: never Adopted: No Caregiver/support person: No Lives independently: Yes Marital status: Number of children: 4 Number of grandchildren: 0 Current occupational status: employed Current gender identity: Male Physical Exam 2 Const: GENERAL APPEARANCE: cooperative ORIENTATION/CONSCIOUSNESS: Yes awake, Yes oriented to person, Yes oriented to place and Yes oriented to time HENMT: COMMON NORMALS: normocephalic, atraumatic and hearing grossly normal bilaterally HEAD & SCALP: normocephalic and atraumatic Resp: COMMON NORMALS: normal respiratory effort, No retractions, No use of accessory muscles and clear to auscultation bilaterally AUSCULTATION: clear to auscultation bilaterally Cardio: COMMON NORMALS: regular rate, regular rhythm and No murmurs present (Cardio) RATE: regular rate RHYTHM: regular rhythm GI: COMMON NORMALS: Soft to palpation and No hepatosplenomegaly present A USCULTATION: Yes normoactive bowel sounds PALPATION: Yes Soft to palpation, No Tenderness to palpation present (GI), No Guarding due to palpation present (GI) and Yes No hepatosplenomegaly present : BLADDER/KIDNEY EXAM: Yes CVA tenderness Back/Pelvis: GENERAL BACK: Yes CVA tenderness CVA tenderness: bilateral Extremity: COMMON NORMALS: normal to inspection, capillary refill normal, no clubbing, cyanosis or edema, no calf tenderness and no pedal edema Neuro: SENSORIUM/ORIENTATION: Yes oriented to person, Yes oriented to place and Yes oriented to time Skin: COMMON NORMALS: no rashes or lesions noted GENERAL SKIN EXAM: no rashes or lesions noted Course 2 Vital Signs: Vital signs: Vital Signs Temperature 97.8 F 10/31/24 10:08 Pulse Rate 88 10/31/24 13:25 Respiratory Rate 18 10/31/24 10:08 Blood Pressure 161/117 10/31/24 13:25 Pulse Oximetry 99 10/31/24 13:25 Oxygen Delivery Me thod Room Air 10/31/24 10:08 MDM - Male Medical Decision Making Patient is renal stones present but nothing in the ureters. He does have signs of a mild bladder infection we will start him on ciprofloxacin. He is wanting to have the lithotripsy done emergently and discussed some at this point with the infection that needs to be treated first. Generally stones within the kidney are not emergent if they migrate to the ureter that would change especially for the larger of the 2 stones. Reviewed findings with him and encouraged him to follow-up with his urologist as soon as he is able. At very least contact him to advise him of bladder infection Medical Records I reviewed the patient's medical records. Lab Data I reviewed the patient's lab results. 10/31/24 10:14 10/31/24 10:14 Radiology Impressions Abdomen/Pelvis CT 10/31/24 10:30 IMPRESSION: 1. No obstructing renal or ureteral calculi. 2. Hydronephrosis mid kidney. 3. Stable LEFT adrenal nodule measuring 2.7 cm. 4. A few incidental hepatic cyst. 5. Nonobstructing calyceal tip calculi in both kidneys bilaterally. Laboratory Results WBC 11.95 10^3/uL (3.29-11.43) H 10/31/24 10:14 RBC 5.71 10^6/uL (3.85-5.65) H 10/31/24 10:14 Hgb 16.80 g/dL (11.27-16.99) 10/31/24 10:14 Hct 48.8 % (37-53) 10/31/24 10:14 MCV 85.5 fl (82-101) 10/31/24 10:14 MCH 29.4 pg (27-33) 10/31/24 10:14 MCHC 34.4 g/dL (30-55) 10/31/24 10:14 RDW 12.8 % (12.1-15.1) 10/31/24 10:14 Plt Count 303 10^3/cmm (157-399) 10/31/24 10:14 MPV 9.3 fL (7.4-10.4) 10/31/24 10:14 Neut % (Auto) 60.7 % 10/31/24 10:14 Lymph % (Auto) 27.4 % 10/31/24 10:14 [place] % (Auto) 5.8 % 10/31/24 10:14 Eos % (Auto) 5.0 % 10/31/24 10:14 Baso % (Auto) 0.8 % 10/31/24 10:14 Neut # (Auto) 7.25 10^3/uL (1.8-7.7) 10/31/24 10:14 Lymph # (Auto) 3.3 10^3/uL (0.8-4.8) 10/31/24 10:14 [place] # (Auto) 0.7 10^3/uL (0.2-0.9) 10/31/24 10:14 Eos # (Auto) 0.6 10^3/uL (0.0-0.8) 10/31/24 10:14 Baso # (Auto) 0.1 10^3/uL (0.0-0.1) 10/31/24 10:14 Nucleated RBC % (auto) 0 % 10/31/24 10:14 Nucleated RBCs # 0.0 /100WBC 10/31/24 10:14 Sodium 145 mmol/L (136-145) 10/31/24 10:14 Potassium 3.2 mmol/L (3.5-5.1) L 10/31/24 10:14 Chloride 102 mmol/L (98-107) 10/31/24 10:14 Carbon Dioxide 30 mmol/L (22-29) H 10/31/24 10:14 Anion Gap 16.2 (5-19) 10/31/24 10:14 BUN 7 mg/dL (6-20) 10/31/24 10:14 Creatinine 0.7 mg/dL (0.7-1.2) 10/31/24 10:14 GFR Calculation 120.9 mL/min (90-130) 10/31/24 10:14 Glucose 190 mg/dL (65-115) H 10/31/24 10:14 Calculated Osmolality 303 mOsm/kg (285-295) H 10/31/24 10:14 Calcium 9.7 mg/dL (8.5-10.5) 10/31/24 10:14 Total Bilirubin 0.7 mg/dL (0.15-1.2) 10/31/24 10:14 AST 13 U/L (0-40) 10/31/24 10:14 ALT 19 U/L (0-41) 10/31/24 10:14 Alkaline Phosphatase 108 U/L (40-130) 10/31/24 10:14 Total Protein 7.6 g/dL (6.6-8.7) 10/31/24 10:14 Albumin 4.4 g/dL (3.5-5.2) 10/31/24 10:14 Globulin 3.2 g/dL (1.3-4.6) 10/31/24 10:14 Lipase 45 U/L (13-60) 10/31/24 10:14 Urine Color Yellow (Yellow) 10/31/24 12:38 Urine Appearance Clear (CLEAR) 10/31/24 12:38 Urine pH 6.5 (5-7) 10/31/24 12:38 Ur Specific [place] 1.016 (1.005-1.030) 10/31/24 12:38 Urine Protein 2+ (Negative) A 10/31/24 12:38 Urine Glucose (UA) 1+ (Normal) H 10/31/24 12:38 Urine Ketones Negative (Negative) 10/31/24 12:38 Urine Blood Negative (Negative) 10/31/24 12:38 Urine Nitrate Negative (Negative) 10/31/24 12:38 Urine Bilirubin Negative (Negative) 10/31/24 12:38 Urine Urobilinogen 1.0 mg/dL (Negative) 10/31/24 12:38 Ur Leukocyte Esterase Trace (Negative) A 10/31/24 12:38 Urine RBC 0-2 /hpf (0-2) 10/31/24 12:38 Urine WBC 6-10 /hpf (0-5) 10/31/24 12:38 Ur Squamous Epith Cells 0-5 /hpf (0-5) 10/31/24 12:38 Amorphous Sediment Not Reportable 10/31/24 12:38 Urine Bacteria None seen /hpf (NONE) 10/31/24 12:38 Hyaline Casts 2.05 /lpf 10/31/24 12:38 All radiology interpretation(s) finalized by discharge Discharge Plan Discharge Patient Disposition: Home Clinical Impression: Urinary tract infection, Bilateral renal stones Condition: Stable Prescriptions: New hydrocodone-acetaminophen 5-325 mg tablet 1 tab PO Q4H PRN (Reason: pain) Qty: 28 0RF ciprofloxacin HCl 500 mg tablet 500 mg PO BID Qty: 14 0RF promethazine 25 mg tablet 25 mg PO Q6H PRN (Reason: nausea and vomiting) Qty: 20 0RF No Action Primatene Mist 0.125 mg/actuation HFA aerosol inhaler 1 puff inhalation Q6H PRN (Reason: bronchodilation) Qty: 11.7 3RF Rx Instructions: may repeat once after 1 minute atorvastatin 40 mg tablet 40 mg PO DAILY Qty: 30 3RF Rx Instructions: Take one tablet by mouth daily. lisinopril 30 mg tablet 30 mg PO DAILY Qty: 30 2RF tamsulosin 0.4 mg capsule 0.4 mg PO DAILY Qty: 30 2RF buspirone 7.5 mg tablet 7.5 mg PO TID Qty: 60 2RF insulin glargine [Lantus Solostar U-100 Insulin] 100 unit/mL (3 mL) insulin pen 40 unit SUBCUT DAILY Qty: 45 1RF Rx Instructions: Start with 20 units daily Mounjaro 7.5 mg/0.5 mL pen injector 7.5 mg SUBCUT Q7D 30 Days Qty: 2.5 0RF Discharge Orders: Discharge ED (Routine); Ordered 10/31/24 Ordered By: Reji Das Referrals: Love Kaur, BRIAN [Primary Care Provider] - Discharge Diet: Usual diet Discharge Activity: Resume usual activity Patient Instructions: Opioid Safety, Pain Management Activity Restrictions/Additional Instructions: Discharge from ED You are seen emergency room with concern flank pain. You do have bilateral kidney stones but they are not in the ureters. Once the begin to distend the ureter they can cause much more pain and are emergent while in the kidney there not considered emergent. Print Language: [place] Citizen Coding Level of Care Code ED Room Service Waiter for Melissa Mercado
--- NOTE | 2024-10-31 10:30 | CT_ITS ---
WS: [id number] CT ABDOMEN PELVIS TECHNIQUE: Noncontrast CT of the abdomen and pelvis with coronal and sagittal reformatted images. CLINICAL INFORMATION: flank pain COMPARISON: 08/22/2024 DLP: 1149.[address] scans at [facility] use at least one of these dose optimization techniques: automated exposure control; mA and/or kV adjustment per patient size (includes targeted exams where dose is matched to clinical indication); or iterative reconstruction. FINDINGS: Few incidental hepatic cysts. Air-fluid level in the stomach. Small esophageal Eitel hernia. Stable LEFT adrenal nodule. Noncontrast pancreas is normal. Normal noncontrast spleen. No hydronephrosis in either kidney. Bilateral renal cysts. A few nonobstructing calyceal tip calculi. Normal sigmoid colon. Normal appendix in the RIGHT lower quadrant. Lung bases are well aerated. Tiny fat-containing umbilical hernia. Evidence of prior LEFT inguinal hernia repair. CT/CT kidney stone 81923 IMPRESSION: 1. No obstructing renal or ureteral calculi. 2. Hydronephrosis mid kidney. 3. Stable LEFT adrenal nodule measuring 2.7 cm. 4. A few incidental hepatic cyst. 5. Nonobstructing calyceal tip calculi in both kidneys bilaterally.
[2024-10-31 10:44] LABS: Alanine Aminotransferase 19 U/L (0-41); Albumin Level 4.4 g/dL (3.5-5.2); Alkaline Phosphatase 108 U/L (40-130); Anion Gap 16.2 (5-19); Aspartate Amino Transferase 13 U/L (0-40); Blood Urea Nitrogen 7 mg/dL (6-20); Calcium 9.7 mg/dL (8.5-10.5); Carbon Dioxide 30 mmol/L (22-29); Chloride 102 mmol/L (98-107); Creatinine Clr Calc Pharmacy 171.3577; Globulin 3.2 g/dL (1.3-4.6); Glomerular Filtration Rate 120.9 mL/min (90-130); Glucose 190 mg/dL (65-115); Lipase 45 U/L (13-60); Osmolality Calculated 303 mOsm/kg (285-295); Potassium 3.2 mmol/L (3.5-5.1); Sodium 145 mmol/L (136-145); Total Bilirubin 0.7 mg/dL (0.15-1.2); Total Protein 7.6 g/dL (6.6-8.7)
[2024-10-31] MEDS: sodium chloride 0.9% 1,000 ML 999 ML IV (11:03)
[2024-10-31] MEDS: ondansetron 2 mg/ML SDV 2 mL 4 MG IVP (11:03)
[2024-10-31] MEDS: ketorolac 30 mg/mL INJ IVP (11:04)
[2024-10-31 12:53] LABS: Bilirubin Urine Negative (Negative); Blood Urine Negative (Negative); Glucose Urine UA 1+ (Normal); Ketones Urine Negative (Negative); Leukocyte Esterase Urine Trace (Negative); Nitrate Urine Negative (Negative); Protein Urine 2+ (Negative); Specific Gravity, Urine 1.016 (1.005-1.030); Urine Appearance Clear (CLEAR); Urine Color Yellow (Yellow); pH Urine 6.5 (5-7)
[2024-10-31 12:58] LABS: Add Urine Microscopic? YES; Bacteria Urine None Seen /hpf; Hyaline Casts Urine 2.05 /lpf; RBC Urine 0-2 /hpf (0-2); Squamous Epithelial Cell Urine 0-5 /hpf (0-5)
== END 2024-10-31 13:25 | disposition home or self-care (01) ==
PROVIDERS: Emergency Provider Family Medicine
DX: N39.0 Urinary tract infection, site not specified (principal); N20.0 Calculus of kidney; Z79.4 Long term (current) use of insulin; E11.9 Type 2 diabetes mellitus without complications; I10 Essential (primary) hypertension
CPT/HCPCS: 36415; 74176; 80053; 81001; 83690; 85025; 96374; 96375; 99285; J1885; J2405; J7030

== ENCOUNTER 2024-12-22 16:48 | Outpatient (CLI) | payer OTHER, SELFPAY ==
[2024-12-22 17:24] LABS: Estmated Average Glucose 197; Hemoglobin A1C 8.5 % (4.0-6.0)
[2024-12-22 17:35] LABS: Alanine Aminotransferase 14 U/L (0-41); Albumin Level 4.3 g/dL (3.5-5.2); Alkaline Phosphatase 99 U/L (40-130); Aspartate Amino Transferase 12 U/L (0-40); Blood Urea Nitrogen 10 mg/dL (6-20); Calcium 9.5 mg/dL (8.5-10.5); Carbon Dioxide 26 mmol/L (22-29); Chloride 101 mmol/L (98-107); Chol HDL Ratio 5.69 mg/dL (1.0-5.00); Cholesterol 199 mg/dL (0-200); Globulin 3.1 g/dL (1.3-4.6); Glomerular Filtration Rate 80.1 mL/min (90-130); Glucose 125 mg/dL (65-115); HDL Cholesterol 35 mg/dL (60-100); LDL Cholesterol Calculated 104 mg/dL (50-129); LDL HDL Ratio 2.97 RATIO (0.00-3.22); Osmolality Calculated 297 mOsm/kg (285-295); Sodium 143 mmol/L (136-145); Total Bilirubin 0.3 mg/dL (0.15-1.2); Total Protein 7.4 g/dL (6.6-8.7); Triglycerides 300 mg/dL (0-150)
[2024-12-22 17:36] LABS: Creatinine Urine, Random 443 mg/dL (39-259)
[2024-12-22 17:53] LABS: Microalbum Creatinine Ratio Ur 99 mg/dL (0-20); Microalbumin Random Urine 44 ug/dL (0-20)
== END 2024-12-22 16:49 | disposition home or self-care (01) ==
LOC: LAB 16:50
PROVIDERS: Visit Provider Internal Medicine
DX: E11.69 Type 2 diabetes mellitus with other specified complication (principal); E66.9 Obesity, unspecified; E78.2 Mixed hyperlipidemia
CPT/HCPCS: 80053; 80061; 82044; 83036

== ENCOUNTER 2024-12-24 16:44 | Emergency (ER) | payer OTHER, SELFPAY ==
[2024-12-24] VITALS (8 sets, daily range): BP systolic 162–183; BP diastolic 114–126; PULSE 91–114; RESP 16–18; TEMP 36.8; O2SAT 94–97; BMI 30.8
--- NOTE | 2024-12-24 17:16 | W.ED.MALEGU ---
HPI - Male Genitourinary General: Chief complaint: Urogenital-Male Stated complaint: abd pain, trouble urinating Time Seen by Provider: 12/24/24 17:00 History of Present Illness: Patient is a 49-year-old gentleman with history of renal colic/urolithiasis, and last lithotripsy 1 month ago on the left side that presents to the emergency room with right-sided/flank pain. This is similar to previous renal colic. No vomiting however he does note nausea, and pain. He is having hematuria, describes as marah hematuria. Associated symptoms: Reports nausea; Deny vomiting Related Data Previous Rx's ?Medication ?Instructions ?Recorded epinephrine 0.125 mg/actuation 1 puff inhalation Q6H PRN 12/16/21 aerosol inhaler (Primatene Mist) bronchodilation #11.7 grams atorvastatin 40 mg tablet 40 mg PO DAILY #30 tabs 06/29/24 lisinopril 30 mg tablet 30 mg PO DAILY #30 tabs 06/29/24 insulin glargine 100 unit/mL (3 40 unit (0.4 mL) SUBCUT DAILY #45 08/25/24 mL) subcutaneous pen (Lantus mL Solostar U-100 Insulin) tamsulosin 0.4 mg capsule 0.4 mg PO DAILY #30 caps 08/25/24 hydrocodone 5 mg-acetaminophen 325 1 tab PO Q4H PRN pain #28 tabs 10/31/24 mg tablet promethazine 25 mg tablet 25 mg PO Q6H PRN nausea and 10/31/24 vomiting #20 tabs clindamycin HCl 300 mg capsule 300 mg PO TID #30 caps 11/25/24 (Cleocin HCl) buspirone 7.5 mg tablet See Rx Instructions .Route 12/11/24 .COMPLEX #60 tabs tirzepatide 10 mg/0.5 mL 10 mg (0.5 mL) SUBCUT Q7D 1 month 12/11/24 subcutaneous pen injector #2 mL cefdinir 300 mg capsule 300 mg PO BID 10 days #20 caps 12/24/24 Allergies Allergy/AdvReac Type Severity Reaction Status Date / Time empagliflozin (From Allergy Intermediate ADR-Dizzine Verified 12/24/24 16:50 Jardiance) ss codeine Allergy rash Verified 12/24/24 16:50 Penicillins Allergy rash Verified 12/24/24 16:50 Review of Systems General: Reports: 10 or more systems reviewed and unremarkable except in HPI and below Const: Denies: fever(s), chills or body aches Eyes: Denies: change in vision or blurry vision Card: Denies: chest pain or palpitations Resp: Denies: dyspnea or non-productive cough GI: Reports: abdominal pain and nausea; Denies: vomiting : Reports: flank pain and difficulty urinating Musc: Reports: back pain; Denies: neck pain or extremity pain Skin/Breast: Denies: rash or pruritus Neuro: Denies: headache(s) or numbness in extremities Psych: Denies: anxiety or depression Endo: Reports: polyuria Leonel/Lymph: Reports: other (hematuria) All/Imm: Denies: urticaria or throat swelling PFSH ED PFSH: Medical History Lower back pain Screening for prostate cancer Cigarette smoker motivated to quit Bilateral leg cramps Hypokalemia Allergic rhinitis due to allergen Umbilical hernia without mention of obstruction or gangrene Diabetes mellitus type 2 in obese Bilateral renal stones Coincidental discovery on CT scan December and Mar 2021. Bilateral non-obstructing renal stones, left greater than sign right. Exercise-induced coughing episode Erectile dysfunction Hypertension Uncontrolled hypertension Anxiety and depression Obesity (BMI 35.0-39.9 without comorbidity) Surgical History H/O hernia repair Family History Other Cancer Diabetes Hypertension Social History Smoking and tobacco/nicotine status: never used tobacco/nicotine Alcohol intake: current Alcohol intake frequency: few times a month Substance/Drug Use: never Adopted: No Caregiver/support person: No Lives independently: Yes Marital status: Number of children: 4 Number of grandchildren: 0 Current occupational status: employed Current gender identity: Male Physical Exam Const: COMMON NORMALS: no acute distress, average body habitus, patient oriented x3 and no limitations GENERAL APPEARANCE: cooperative, comfortable and well kempt HENMT: COMMON NORMALS: normocephalic and atraumatic HEAD & SCALP: normocephalic and atraumatic FACE & SINUS: normal facial exam Lymph: LYMPHATIC: no lymphadenopathy noted Chest: COMMONS NORMALS: normal inspection of the chest and normal palpation of entire chest wall Resp: COMMON NORMALS: normal respiratory effort and No use of accessory muscles Cardio: COMMON NORMALS: regular rate and regular rhythm RATE: regular rate RHYTHM: regular rhythm GI: COMMON NORMALS: Normal to inspection, nondistended, normoactive bowel sounds present INSPECTION: Yes normal to inspection AUSCULTATION: Yes normoactive bowel sounds PALPATION: Yes Tenderness to palpation present (GI) Details: RLQ and Yes Guarding due to palpation present (GI) in the RLQ RECTAL EXAM: Yes deferred : BLADDER/KIDNEY EXAM: Yes CVA tenderness on the right Back/Pelvis: COMMON NORMALS: thoracic and lumbar spine normal to inspection GENERAL BACK: Yes CVA tenderness, No mass, No erythema and No warmth Extremity: COMMON NORMALS: normal to inspection, full ROM and capillary refill normal Neuro: COMMON NORMALS: patient oriented x3 Psych: APPEARANCE: Yes well kempt Course Reevaluation(s): Reevaluation #1: Patient was still hurting. Morphine ordered Reevaluation #2: RN informed PA that patient refused potassium. He states he has his at home and he will take it. Vital Signs: Vital signs: Vital Signs Temperature 98.3 F 12/24/24 17:18 Pulse Rate 91 12/24/24 20:56 Respiratory Rate 18 12/24/24 20:56 Blood Pressure 162/114 12/24/24 20:56 Pulse Oximetry 95 12/24/24 20:56 Oxygen Delivery Me thod Room Air 12/24/24 19:00 [facility] - Male Medical Decision Making Patient is a 49-year-old male with history urolithiasis that comes in with right flank pain and right lower quadrant pain. He is established with urology at [place]. Last lithotripsy was 1 month ago. Suspect renal colic/urolithiasis. He has association of hematuria. Will check routine labs/urinalysis/CT of abdomen pelvis Potassium is 2.6. Magnesium added on, potassium 40 mill equivalents replacement given. Lab Data 12/24/24 17:42 12/24/24 17:42 Radiology Impressions Abdomen/Pelvis CT 12/24/24 17:44 IMPRESSION: 1. Partially obstructing 3 mm right proximal ureteral stone without significant hydronephrosis. 2. Small locule of air along the posterior pleura of the right lower lobe; similar findings were observed on prior CT dated 08/22/2024. Nonspecific, nonemergent CT chest without contrast may be obtained. 3. Diverticulosis without evidence of acute diverticulitis. 4. Left adrenal nodule, likely benign (e.g., lipid-rich adenoma or myelolipoma), stable. 5. Prostatomegaly with nodular indentation of the bladder base. Recommend correlation with PSA and clinical findings. COMMENTS: Consistent with the [employer]'s Incidental Findings Committee white paper (J Am Alissa Radiol 2018): Any incidental renal lesion less than 1 cm or classified as too small to characterize, or any incidental cystic renal lesion characterized as simple-appearing, is likely benign. No follow-up imaging is recommended for these lesions per consensus recommendations based on imaging criteria. Laboratory Results WBC 18.08 10^3/uL (3.29-11.43) H 12/24/24 17:42 RBC 5.42 10^6/uL (3.85-5.65) 12/24/24 17:42 Hgb 16.00 g/dL (11.27-16.99) 12/24/24 17:42 Hct 46.4 % (37-53) 12/24/24 17:42 MCV 85.6 fl (82-101) 12/24/24 17:42 MCH 29.5 pg (27-33) 12/24/24 17:42 MCHC 34.5 g/dL (30-55) 12/24/24 17:42 RDW 13.1 % (12.1-15.1) 12/24/24 17:42 Plt Count 299 10^3/cmm (157-399) 12/24/24 17:42 MPV 9.5 fL (7.4-10.4) 12/24/24 17:42 Neut % (Auto) 69.2 % 12/24/24 17:42 Lymph % (Auto) 22.6 % 12/24/24 17:42 [place] % (Auto) 4.2 % 12/24/24 17:42 Eos % (Auto) 3.0 % 12/24/24 17:42 Baso % (Auto) 0.6 % 12/24/24 17:42 Neut # (Auto) 12.51 10^3/uL (1.8-7.7) H 12/24/24 17:42 Lymph # (Auto) 4.1 10^3/uL (0.8-4.8) 12/24/24 17:42 [place] # (Auto) 0.8 10^3/uL (0.2-0.9) 12/24/24 17:42 Eos # (Auto) 0.5 10^3/uL (0.0-0.8) 12/24/24 17:42 Baso # (Auto) 0.1 10^3/uL (0.0-0.1) 12/24/24 17:42 Nucleated RBC % (auto) 0 % 12/24/24 17:42 Nucleated RBCs # 0.0 /100WBC 12/24/24 17:42 Sodium 140 mmol/L (136-145) 12/24/24 17:42 Potassium 2.6 mmol/L (3.5-5.1) L* 12/24/24 17:42 Chloride 97 mmol/L (98-107) L 12/24/24 17:42 Carbon Dioxide 29 mmol/L (22-29) 12/24/24 17:42 Anion Gap 16.6 (5-19) 12/24/24 17:42 BUN 12 mg/dL (6-20) 12/24/24 17:42 Creatinine 0.9 mg/dL (0.7-1.2) 12/24/24 17:42 GFR Calculation 90.4 mL/min (90-130) 12/24/24 17:42 Glucose 150 mg/dL (65-115) H 12/24/24 17:42 Calculated Osmolality 293 mOsm/kg (285-295) 12/24/24 17:42 Calcium 9.3 mg/dL (8.5-10.5) 12/24/24 17:42 Magnesium 1.7 mg/dL (1.7-2.3) 12/24/24 17:42 Total Bilirubin 0.6 mg/dL (0.15-1.2) 12/24/24 17:42 AST 11 U/L (0-40) 12/24/24 17:42 ALT 11 U/L (0-41) 12/24/24 17:42 Alkaline Phosphatase 83 U/L (40-130) 12/24/24 17:42 Total Protein 6.7 g/dL (6.6-8.7) 12/24/24 17:42 Albumin 3.8 g/dL (3.5-5.2) 12/24/24 17:42 Globulin 2.9 g/dL (1.3-4.6) 12/24/24 17:42 Lipase 13 U/L (13-60) 12/24/24 17:42 Urine Color Red (Yellow) A 12/24/24 17:24 Urine Appearance Turbid (CLEAR) A 12/24/24 17:24 Urine pH 5.5 (5-7) 12/24/24 17:24 Ur Specific [place] 1.022 (1.005-1.030) 12/24/24 17:24 Urine Protein 3+ (Negative) A 12/24/24 17:24 Urine Glucose (UA) Negative (Normal) 12/24/24 17:24 Urine Ketones Negative (Negative) 12/24/24 17:24 Urine Blood 3+ (Negative) A 12/24/24 17:24 Urine Nitrate Positive (Negative) A 12/24/24 17:24 Urine Bilirubin 1+ (Negative) H 12/24/24 17:24 Urine Urobilinogen 1.0 mg/dL (Negative) 12/24/24 17:24 Ur Leukocyte Esterase 3+ (Negative) A 12/24/24 17:24 Urine RBC >100 /hpf (0-2) H 12/24/24 17:24 Urine WBC >100 /hpf (0-5) H 12/24/24 17:24 Ur Squamous Epith Cells 0-5 /hpf (0-5) 12/24/24 17:24 Amorphous Sediment Not Reportable 12/24/24 17:24 Urine Bacteria Trace /hpf (NONE) 12/24/24 17:24 Hyaline Casts 1.39 /lpf 12/24/24 17:24 All radiology interpretation(s) finalized by discharge ED provider radiology interpretation(s): Partially obstructing 3 mm stone Discharge Plan Discharge Patient Disposition: Home Clinical Impression: Urinary tract infection with pyuria, Hypokalemia, Hypomagnesemia Urolithiasis Qualifiers: Urinary calculus location: ureter Qualified Code(s): N20.1 - Calculus of ureter Condition: Stable Prescriptions: New cefdinir 300 mg capsule 300 mg PO BID 10 Days Qty: 20 0RF No Action Primatene Mist 0.125 mg/actuation HFA aerosol inhaler 1 puff inhalation Q6H PRN (Reason: bronchodilation) Qty: 11.7 3RF Rx Instructions: may repeat once after 1 minute atorvastatin 40 mg tablet 40 mg PO DAILY Qty: 30 3RF Rx Instructions: Take one tablet by mouth daily. lisinopril 30 mg tablet 30 mg PO DAILY Qty: 30 2RF tamsulosin 0.4 mg capsule 0.4 mg PO DAILY Qty: 30 2RF clindamycin HCl [Cleocin HCl] 300 mg capsule 300 mg PO TID Qty: 30 0RF insulin glargine [Lantus Solostar U-100 Insulin] 100 unit/mL (3 mL) insulin pen 40 unit SUBCUT DAILY Qty: 45 1RF Rx Instructions: Start with 20 units daily tirzepatide 10 mg/0.5 mL pen injector 10 mg SUBCUT Q7D 30 Days Qty: 2 0RF buspirone 7.5 mg tablet See Rx Instructions .ROUTE .COMPLEX Qty: 60 1RF Dose Instruction: TAKE ONE TABLET BY MOUTH THREE TIMES DAILY Rx Instructions: TAKE ONE TABLET BY MOUTH THREE TIMES DAILY hydrocodone-acetaminophen 5-325 mg tablet 1 tab PO Q4H PRN (Reason: pain) Qty: 28 0RF promethazine 25 mg tablet 25 mg PO Q6H PRN (Reason: nausea and vomiting) Qty: 20 0RF Discharge Orders: Discharge ED (Routine); Ordered 12/24/24 Ordered By: Rosa Bloom Referrals: Love Kaur NP [Primary Care Provider, Family Practice] Discharge Diet: Usual diet Patient Instructions: Renal Colic (ED), Opioid Safety, Pain Management Activity Restrictions/Additional Instructions: Call your doctor/urologist in [place] to set up appointment for follow-up on current kidney stone Increase your potassium to twice daily. You will need a repeat lab tomorrow or Wednesday with your primary care physician Incidental findings that need to be addressed with your primary care: - There is a prostate nodule. Radiology is recommending correlation with PSA or specific prostate study - There are changes in your lung/small nodule. A CAT scan of your chest needs to be done on a nonemergent basis from your primary care. Take probiotic, or active culture yogurt for your antibiotic. Ibuprofen or Tylenol for pain Return to ED with change or worsening pain, fevers Print Language: [place] Coding Level of Care Code ED Senior Tableau Developer for Melissa Mercado
[2024-12-24 17:36] LABS: Bilirubin Urine 1+ (Negative); Blood Urine 3+ (Negative); Glucose Urine UA Negative (Normal); Ketones Urine Negative (Negative); Leukocyte Esterase Urine 3+ (Negative); Nitrate Urine Positive (Negative); Protein Urine 3+ (Negative); Specific Gravity, Urine 1.022 (1.005-1.030); Urine Appearance Turbid (CLEAR); pH Urine 5.5 (5-7)
[2024-12-24 17:38] LABS: Add Urine Microscopic? YES; Bacteria Urine Trace /hpf; Hyaline Casts Urine 1.39 /lpf; RBC Urine >100 /hpf (0-2); Squamous Epithelial Cell Urine 0-5 /hpf (0-5); WBC Urine >100 /hpf (0-5)
--- NOTE | 2024-12-24 17:44 | CTR_ITS ---
PROCEDURE INFORMATION: Exam: CT Abdomen And Pelvis Without Contrast Exam date and time: 12/24/2024 6:22 PM Age: 49 years old Clinical indication: Nausea and vomiting and other: Dysuria/hematuria; Prior surgery; Surgery date: 6+ months; Surgery type: Hernia repair; C/O n/v with hematuria/dysuria. History of ureteroltihiasis. ; Additional info: Renal colic history of urolithiasis TECHNIQUE: Imaging protocol: Computed tomography of the abdomen and pelvis without contrast. Radiation optimization: All CT scans at this facility use at least one of these dose optimization techniques: automated exposure control; mA and/or kV adjustment per patient size (includes targeted exams where dose is matched to clinical indication); or iterative reconstruction. COMPARISON: CT kidney stone [id number] 10/31/2024 10:41 AM RADIATION DOSE METRICS: Total DLP (mGy-cm): 921.94 FINDINGS: Lungs: A 2.6 x 0.3 cm locule of air is noted along the posterior medial pleura of the posterior basal segment of the right lower lobe, not seen on prior imaging. Liver: Slightly enlarged, measuring 18.4 cm. Stable hepatic hypodensities. Gallbladder and biliary ducts: Normal. No calcified stones or ductal dilation. Pancreas: Normal. No ductal dilation. Spleen: Normal in size and appearance. Adrenal glands: A 3.1 x 2.8 cm low-density nodule is present in the left adrenal gland, likely benign (e.g., myelolipoma or lipid-rich adenoma), unchanged from prior. Kidneys and ureters: Simple cyst in the left kidney. Multiple nonobstructing calcifications in the left kidney. A partially obstructing 3 mm stone is seen in the proximal right ureter without significant hydronephrosis. Simple exophytic cyst in the right kidney. Stomach and bowel: Stomach, small bowel, and colon are nondilated. Appendix: Normal. Scattered colonic diverticula without signs of acute diverticulitis. Intraperitoneal space: No free air or significant fluid collection. Vasculature: No abdominal aortic aneurysm. Lymph nodes: No enlarged lymph nodes. Urinary bladder: Unremarkable as visualized. Reproductive: Reproductive Organs: Enlarged prostate with nodular indentation of the bladder base. Bones/joints: No acute fracture. Soft tissues: Small fat-containing umbilical hernia. CT/CT abdomen pelvis wo con [id number] IMPRESSION: 1. Partially obstructing 3 mm right proximal ureteral stone without significant hydronephrosis. 2. Small locule of air along the posterior pleura of the right lower lobe; similar findings were observed on prior CT dated 08/22/2024. Nonspecific, nonemergent CT chest without contrast may be obtained. 3. Diverticulosis without evidence of acute diverticulitis. 4. Left adrenal nodule, likely benign (e.g., lipid-rich adenoma or myelolipoma), stable. 5. Prostatomegaly with nodular indentation of the bladder base. Recommend correlation with PSA and clinical findings. COMMENTS: Consistent with the [employer]'s Incidental Findings Committee white paper (J Am Alissa Radiol 2018): Any incidental renal lesion less than 1 cm or classified as too small to characterize, or any incidental cystic renal lesion characterized as simple-appearing, is likely benign. No follow-up imaging is recommended for these lesions per consensus recommendations based on imaging criteria.
[2024-12-24 17:47] LABS: UA Slide Review UA Slide Review Perf; Urine Color Red (Yellow)
[2024-12-24 17:48] LABS: Add Urine Culture? Yes
[2024-12-24 17:55] LABS: Basophils # 0.1 10^3/uL (0.0-0.1); Basophils % 0.6 %; Eosinophils # 0.5 10^3/uL (0.0-0.8); Hematocrit 46.4 % (37-53); Lymphocytes # 4.1 10^3/uL (0.8-4.8); Lymphocytes % 22.6 %; Mean Corpuscular HGB Conc 34.5 g/dL (30-55); Mean Corpuscular Hemoglobin 29.5 pg (27-33); Mean Corpuscular Volume 85.6 fl (82-101); Mean Platelet Volume 9.5 fL (7.4-10.4); Monocytes # 0.8 10^3/uL (0.2-0.9); Monocytes % 4.2 %; Neutrophils # 12.51 10^3/uL (1.8-7.7); Neutrophils % 69.2 %; Nucleated Red Blood Cells % 0 %; Platelet Count 299 10^3/cmm (157-399); Red Blood Count 5.42 10^6/uL (3.85-5.65); Red Cell Distribution Width 13.1 % (12.1-15.1); White Blood Count 18.08 10^3/uL (3.29-11.43)
[2024-12-24] MEDS: ondansetron 2 mg/ML SDV 2 mL 4 MG IVP (17:59)
[2024-12-24] MEDS: ketorolac 30 mg/mL INJ 10 MG IVP (17:59)
[2024-12-24 18:12] LABS: Alanine Aminotransferase 11 U/L (0-41); Albumin Level 3.8 g/dL (3.5-5.2); Alkaline Phosphatase 83 U/L (40-130); Anion Gap 16.6 (5-19); Aspartate Amino Transferase 11 U/L (0-40); Blood Urea Nitrogen 12 mg/dL (6-20); Calcium 9.3 mg/dL (8.5-10.5); Carbon Dioxide 29 mmol/L (22-29); Chloride 97 mmol/L (98-107); Creatinine Clr Calc Pharmacy 133.2782; Globulin 2.9 g/dL (1.3-4.6); Glomerular Filtration Rate 90.4 mL/min (90-130); Glucose 150 mg/dL (65-115); Lipase 13 U/L (13-60); Osmolality Calculated 293 mOsm/kg (285-295); Sodium 140 mmol/L (136-145); Total Bilirubin 0.6 mg/dL (0.15-1.2); Total Protein 6.7 g/dL (6.6-8.7)
[2024-12-24 18:14] LABS: Potassium 2.6 mmol/L (3.5-5.1)
[2024-12-24] MEDS: morphine 4 mg/mL SDV 1 mL IVP (19:11)
[2024-12-24] MEDS: cefTRIAXone 1,000 mg SDV 1000 MG IVP (19:12)
[2024-12-24 19:13] LABS: Magnesium 1.7 mg/dL (1.7-2.3)
--- NOTE | 2024-12-24 19:22 | PC.NURSE ---
pt refused potassium po pills, states no I have them at home I will take them at home. BRIAN Bloom notified and aware.
[2024-12-24] MEDS: magnesium sulfate premix 2 GM/50 ML PIGGYBACK IV (19:53)
== END 2024-12-24 20:51 | disposition home or self-care (01) ==
PROVIDERS: Emergency Medicine; Emergency Provider Physician Assistant
DX: N39.0 Urinary tract infection, site not specified (principal); E87.6 Hypokalemia; E83.42 Hypomagnesemia; N20.1 Calculus of ureter; Z79.4 Long term (current) use of insulin; E11.9 Type 2 diabetes mellitus without complications; I10 Essential (primary) hypertension
CPT/HCPCS: 74176; 80053; 81001; 83690; 83735; 85025; 87086; 96374; 96375; 99285; J0696; J1885; J2270; J2405; J3475

== ENCOUNTER → 2025-01-18 12:32 | Outpatient (BNVA) | payer OTHER, SELFPAY | PROVIDERS: PCP Family Medicine Adult Medicine; Visit Provider Nurse Practitioner | DX: R25.2 Cramp and spasm (principal) | CPT/HCPCS: 80053; 83735; 85025 ==

== ENCOUNTER 2025-01-31 15:34 | Outpatient (CLI) | payer OTHER, SELFPAY ==
--- NOTE | 2025-01-31 16:19 | XR_ITS ---
WS: [id number] KUB, AP view, 01/31/2025 Clinical Data: BILATERAL NEPHROLITHIASIS Comparison: KUB, 05/05/2021, CT abdomen pelvis, 12/24/2024 Findings: No abnormal intraabdominal masses or calcifications are seen. There is no dilatated small bowel or evidence of obstruction. The stones demonstrated on the CT abdomen pelvis are not distinctly seen on this examination. There are ingested tablets in the stomach. XR/XR KUB [id number] Impression: Negative KUB.
[2025-01-31 17:21] LABS: Cholesterol 211 mg/dL (0-200); HDL Cholesterol 34 mg/dL (60-100); Potassium 3.4 mmol/L (3.5-5.1); Triglycerides 165 mg/dL (0-150)
[2025-01-31 18:34] LABS: Creatinine Urine, Random 498 mg/dL (39-259); Microalbum Creatinine Ratio Ur 30 mg/dL (0-20)
== END 2025-01-31 15:35 | disposition home or self-care (01) ==
LOC: LAB 15:35
PROVIDERS: Internal Medicine; PCP Family Medicine Adult Medicine; Visit Provider Urology
DX: E78.2 Mixed hyperlipidemia (principal); E87.6 Hypokalemia; N52.03 Combined arterial insufficiency and corporo-venous occlusive erectile dysfunction; E11.69 Type 2 diabetes mellitus with other specified complication; E66.9 Obesity, unspecified; N20.0 Calculus of kidney
CPT/HCPCS: 36415; 74018; 80061; 82044; 84132; 84403; G0103

== ENCOUNTER 2025-02-21 13:55 | Emergency (ER) | payer OTHER, SELFPAY ==
--- OUTSIDE RECORDS SUMMARY | 2025-02-09 06:00 | XMS_ITS ---
Author Organization [facility] Address [address] [place] [address] Care Team Providers Care Donor Technician Name Role Phone STEFANI HANSON Primary Care Provider Unav ailable DIANA AZUL Unavailable [phone] REASON FOR VISIT R URS, Stone Manip, Stent Placement @ [facility] Encounters Encounter Location Date Provider Diagnosis [facility] [address] [facility] [place] [address] 02/09/2025 DIANA AZUL Plan Of Treatment Next Appt Details Provider Name:JAE VILLALTA, 1 08:00:00 AM, [address] [place], [address], Progress Notes * Ethan NICKERSONDOB:1974 (49 yo M)Acc No.[id number]:02/09/2025 Patient: Ethan FERNANDEZ Provider: Rivera AZUL MD :1975 A ge:49 Y S ex:Male Date:02/09/2025 Address:[address] [place], [place] [id number] Pcp:VARINDER HULL * Billing Information: * Visit Code: * Procedure Codes: * Electronic signature of AUST IN MD JORGE ALBERTO on 02/21/2025 at 09:54 PM CDT Sign off status: Pending * Provider: Rivera AZUL MD Date: 0 02/09/2025 Generated for Edson wright/Addy/Merari on: 0 02/21/2025 09:54 PM CDT
--- OUTSIDE RECORDS SUMMARY | 2025-02-19 03:45 | XMS_ITS ---
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 Name Role Phone STEFANI HANSON Primary Care Provider Unav mayank AZULDIANA Unavailable [phone] Allergies Allergen (clinical drug ingredient) Drug/Non Drug Allergy documented on EMR Reaction Allergy Type Onset Date Status codeine Codeine Unknown Drug Allergy Active Penicillin anaphylaxis Drug Allergy Acti ve Results Component Value Reference Range Notes Urinalysis, Routine Reviewed date:02/19/2025 09:05:53 AM Interpretation: Performing Lab: Notes/Report: Urine-Color dark yellow Appearance clear Glucose - Bilirubin - Ketones - Specific [place] 1.015 Occult Blood 3+ pH 6.5 Urine Protein 1+ Urobilinogen,Semi-Qn - Nitrite, Urine - WBC Esterase trace REASON FOR VISIT Stent Removal Medications Medication SIG (Take, Route, Frequency, Duration) Notes Start Date End Date Status dexAMETHasone 1 MG 1 tablet Orally at 1 1pm night before 2nd cortisol test; Duration: 1 days 09/11/2024 Active Lisinopril 30 MG 1 tablet Orally Once a day Active Ciprofloxacin HCl 500 MG 1 tablet Orally every 12 hrs; Duration: 3 days 02/19/2025 Active amLODIPine Besylate 10 MG 1 tablet Orall y Once a day Active Klor-Con M20 20 MEQ 1 tablet with food O rally Once a day Active busPIRone HCl 7.5 MG 1 tablet Orally Twi ce a day Active Potassium 99 MG 1 tablet Orally Once a day Active Atorvastatin Calcium 40 MG 1 tablet Oral ly Once a day Active Tamsulosin HCl 0.4 MG 1 capsule Orally O nce a day Active Sertraline HCl 100 MG 1 tablet Orally On ce a day Active Social History Tobacco Use: Social History Observation Description Date Details (start date - stop date) Current Smoker NA - NA Tobacco Control (Standard) Question Answer Notes Tobacco use: Current smoker How often do you smoke cigarettes? Every day How many cigarettes a day do you smoke? 21-30 Are you interested in quitting? Not ready to matteo t Section Notes: currently has 1 - 5 drinks a day smokes a pack and a 1/2 a day denies drug use Vital Signs Blood pressure systolic 156 mm Hg 02/20/20 25 Blood pressure diastolic 108 mm Hg 025 Heart Rate 105 /min 02/19/2025 Height 74 in 02/19/2025 Weight 230 lbs 02/19/2025 BMI 29.53 kg/m2 02/19/2025 Height-cm 187.96 cm 02/19/2025 Weight-kg 104.33 kg 02/19/2025 Encounters Encounter Location Date Provider Diagnosis [facility] [address] [place] [address] 02/19/2025 DIANA AZUL Bilateral nephrolithiasis N20.0 ; Complicated UTI (urinary tract infection) N39.0 ; Low back pain M54.50 ; Hematuria R31.9 ; Nausea R11.0 ; Feeling unwell R68.89 and Uncontrolled diabetes mellitus E11.65 Assessments Encounter Date Diagnosis (ICD Code) Assessment Notes Treatment Notes Treatment Clinical Notes Section Notes 02/19/2025 Bilateral nephrolithiasis (ICD-10 - N20.0) 02/19/2025 Complicated UTI (urinary tract infection) (ICD-10 - N39.0) 02/19/2025 Low back pain (ICD-10 - M54.50) 02/19/2025 Hematuria (ICD-10 - R31.9) 02/19/2025 Nausea (ICD-10 - R11.0) 02/19/2025 Feeling unwell (ICD-10 - R68.89) 02/19/2025 Uncontrolled diabetes mellitus (ICD-10 - E11.65) Plan Of Treatment Medication Medication Name Sig Start Date Stop Date Notes Ciprofloxacin HCl 500 MG 1 tablet Orally every 12 hrs; Duration: 3 days 02/19/2025 Next Appt Details Provider Name:JAE VILLALTA, 1 08:00:00 AM, [address] [place], [address], Progress Notes * Ethan NICKERSONDOB:1974 (49 yo M)Acc No.[id number]:02/19/2025 Patient: Ethan FERNANDEZ Provider: Rivera AZUL MD :1975 A ge:49 Y S ex:Male Date:02/19/2025 Address:[address] [place], [place] [phone] Pcp:VARINDER HULL Subjective: * Chief Complaints: * 1 . Stent Removal. * HPI: M igrated HPI: Mr. Nickerson is a 49 year old male patient referred by [facility] ER for hematuria. He was previously a patient of Dr. Cedillo for history of stones, UTI and prostatitis. He is a lifelong smoker, reports 1.5 PPD. He reports 1-5 alcoholic drinks per day. He was seen at ER on 08/22/24 with c/o lower back pain, gross hematuria and dysuria. WBC increased at 18, creatinine 0.7. CT revealed a left adrenal gland which measured 3.0cm, 27 HFU, which is increased from imaging in 2020, as well as, non- obstructive nephrolithiasis with a 4mm stone in the R kidney and a 10mm stone in the left kidney, and a simple left renal cyst, and bladder wall thickening. He was treated with Cefdinir. He reports urinary frequency, urgency, intermittency and nocturia. IPSS 23, QOL 6. He is on Flomax. He has persistent glucosuria and was recently diagnosed with diabetes at ER when his blood sugar was over 300. He states he is on Mounjaro and was prescribed Lantus but doesn't use it. CT on 08/22/24 shows nonobstructing 4mm stone in Right Kidney and 10mm stone in left kidney. Cysto on 10/12/24 normal. Underwent L ESWL on 11/10/24. KUB on 01/31/25 shows resolution of large L renal stone, R kidney is obscured by gas. He reports ER visit around Father's Day due to low back pain and hematuria. He was Dx with UTI. States he had mild relief while on antibiotics, but all symptoms came back after he finished them. Azo is helping some. He also reports nausea, but oral intake is good. No fever. Underwent R URS with stone manip with stent placement on 02/09/25. Here today post op for Cystoscopy with stent removal. * Medical History: A nxiety, Arthritis, High cholesterol, HTN, Depression, Diabetes, Back pain, Blood in urine, Burning with urination, Incontinence - unable to make it to the bathroom, Kidney stones, Waking 1-4 times a night to urinate, UTI, Urinary urgency, Problems with sexual desire, Weak stream, Urine starts and stops. * Surgical History: r ight shoulder , hernia , lithotripsy/ sent placement . * Hospitalization/Major Diagno stic Procedure: h igh blood sugar , kidney infection / prostate . * Family History: F ather: alive 73 yrs, diabeticpace makerHTN. M other: , heart problemsHTNdiabetickidney problems. * Social History: T obacco Use: T obacco Control (Standard) T obacco use: C urrent smoker, H ow often do you smoke cigarettes? E very day, H ow many cigarettes a day do you smoke? 2 1-30, A re you interested in quitting? N ot ready to quit. c urrently has 1 - 5 drinks a day smokes a pack and a 1/2 a day denies drug use. * Medications: T aking Potassium 99 MG Tablet 1 tablet Orally Once a day , Taking busPIRone HCl 7.5 MG Tablet 1 tablet Orally Twice a day , Taking Tamsulosin HCl 0.4 MG Capsule 1 capsule Orally Once a day , Taking Atorvastatin Calcium 40 MG Tablet 1 tablet Orally Once a day , Taking Sertraline HCl 100 MG Tablet 1 tablet Orally Once a day , Taking amLODIPine Besylate 10 MG Tablet 1 tablet Orally Once a day , Taking Klor-Con M20 20 MEQ Tablet Extended Release 1 tablet with food Orally Once a day , Taking Lisinopril 30 MG Tablet 1 tablet Orally Once a day , Taking dexAMETHasone 1 MG Tablet 1 tablet Orally at 11pm night before 2nd cortisol test , Medication List reviewed and reconciled with the patient * Allergies: C odeine, Penicillin: anaphylaxis. Objective: * Vitals: B P:156/108mm Hg, HR:105/min, Wt:230lbs, Wt-k.33 kg, Ht: 74 in, Ht-cm: 187.96 cm, BMI:29.53Index, Body Surface Area: 2.33. Assessment: * Assessment: 1. C omplicated UTI (urinary tract infection) - N39.0 (Primary) 2 . B ilateral nephrolithiasis - N20.0 S pecify :s/p L ESWL 11/2024 3 . L ow back pain - M54.50 4 . H ematuria - R31.9 ? 5 . N ausea - R11.0 6 . F eeling unwell - R68.89 7 . U ncontrolled diabetes mellitus - E11.65 Plan: * Treatment: Value Reference Range U rine-Color dark yellow * A ppearance clear * G lucose - * B ilirubin - * K etones - * S pecific [place] 1.015 * O ccult Blood 3+ * p H 6.5 * U rine Protein 1+ * U robilinogen,Semi-Qn - * N itrite, Urine - * W BC Esterase trace * Procedure Codes: 8 1003 URINALYSIS, AUTO, W/O SCOPE * Billing Information: * Visit Code: * Procedure Codes: 93920 URINALYSIS, AUTO, W/O SCOPE. * Electronic signature of AUST IN MD JORGE ALBERTO on 02/21/2025 at 09:55 PM CDT Sign off status: Pending * Provider: Rivera AZUL MD Date: 0 02/19/2025 Generated for Edson wright/Addy/eTransmitting on: 0 02/21/2025 09:55 PM CDT
--- OUTSIDE RECORDS SUMMARY | 2025-02-19 11:12 | XMS_ITS ---
Author Organization [facility] Address [address] [place] [address] Care Team Providers Care Cae Engineer Name Role Phone STEFANI HANSON Primary Care Provider Unav ailable DIANA AZUL Zhen [phone] REASON FOR VISIT Imaging PA Encounters Encounter Location Date Provider Diagnosis [facility] [address] [facility] [place] [address] 02/19/2025 DIANA AZUL Bilateral nephrolithiasis N20.0 Assessments Encounter Date Diagnosis (ICD Code) Assessment Notes Treatment Notes Treatment Clinical Notes Section Notes 02/19/2025 Bilateral nephrolithiasis (ICD-10 - N20.0) Plan Of Treatment Pending Test Test Name Order Date 21004 KUB, X-Ray: Abdomen, Kidney, Urete r, bladder 02/19/2025 Renal w/bladder--[id number] 02/19/2025 Next Appt Details Provider Name:JAE VILLALTA, 1 08:00:00 AM, [address] [place], [address], Progress Notes * Ethan NICKERSONDOB:1974 (49 yo M)Acc No.[id number]:02/19/2025 Patient: Ethan FERNANDEZ :1975 A ge:49 Y S ex:Male Address:[address] [place] [address], [address] Subjective: * Chief Complaints: * I radha NUNES * Medical History: * Surgical History: * Hospitalization/Major Diagno stic Procedure: * Medications: Objective: * Vitals: * Physical Examination: Assessment: * Assessment: 1. B ilateral nephrolithiasis - N20.0 Plan: * Treatment: ?Imaging: US Renal w/bladder--[id number]* * Procedure Codes: * * Date:
[2025-02-21 14:04] VITALS: BP 106/69; PULSE 108; TEMP 36.6; O2SAT 96
[2025-02-21 14:11] VITALS: PULSE 82; O2SAT 100
[2025-02-21 14:31] LABS: Hematocrit 45.9 % (37-53); Hemoglobin 15.70 g/dL (11.27-16.99); Mean Corpuscular HGB Conc 34.2 g/dL (30-55); Mean Corpuscular Hemoglobin 29.6 pg (27-33); Mean Corpuscular Volume 86.4 fl (82-101); Nucleated Red Blood Cells % 0 %; Platelet Count 346 10^3/cmm (157-399); Red Blood Count 5.31 10^6/uL (3.85-5.65); White Blood Count 14.43 10^3/uL (3.29-11.43)
[2025-02-21 14:46] LABS: Alanine Aminotransferase 14 U/L (0-41); Albumin Level 4.1 g/dL (3.5-5.2); Alkaline Phosphatase 86 U/L (40-130); Anion Gap 16.3 (5-19); Aspartate Amino Transferase 11 U/L (0-40); Blood Urea Nitrogen 18 mg/dL (6-20); Calcium 9.4 mg/dL (8.5-10.5); Carbon Dioxide 26 mmol/L (22-29); Chloride 100 mmol/L (98-107); Creatinine Clr Calc Pharmacy 107.9805; Globulin 3.0 g/dL (1.3-4.6); Glucose 133 mg/dL (65-115); Osmolality Calculated 292 mOsm/kg (285-295); Potassium 3.3 mmol/L (3.5-5.1); Sodium 139 mmol/L (136-145); Total Protein 7.1 g/dL (6.6-8.7)
[2025-02-21 15:11] VITALS: PULSE 90; O2SAT 98
[2025-02-21 16:11] VITALS: PULSE 111; O2SAT 95
--- NOTE | 2025-02-21 16:15 | CTR_ITS ---
PROCEDURE INFORMATION: Exam: CT Head Without Contrast Exam date and time: 02/21/2025 4:51 PM Age: 49 years old Clinical indication: Pain; Headache not specified; Additional info: Headache, AMS TECHNIQUE: Imaging protocol: Computed tomography of the head without contrast. Radiation optimization: All CT scans at this facility use at least one of these dose optimization techniques: automated exposure control; mA and/or kV adjustment per patient size (includes targeted exams where dose is matched to clinical indication); or iterative reconstruction. COMPARISON: No relevant prior studies available. RADIATION DOSE METRICS: Total DLP (mGy-cm): 1207.55 FINDINGS: Brain: Normal. No hemorrhage. Unremarkable white matter. No mass effect. Cerebral ventricles: No ventriculomegaly. Paranasal sinuses: Visualized sinuses are unremarkable. No fluid levels. Mastoid air cells: Visualized mastoid air cells are well aerated. Bones: Unremarkable. No acute fracture. Soft tissues: Unremarkable. CT/CT head wo con* [id number] IMPRESSION: No acute intracranial abnormality.
--- NOTE | 2025-02-21 16:17 | CTR_ITS ---
PROCEDURE INFORMATION: Exam: CTA Abdomen and Pelvis With Contrast Exam date and time: 02/21/2025 4:57 PM Age: 49 years old Clinical indication: Other: Syncope; Prior surgery; Surgery date: 6+ months; Surgery type: Hernia; Additional info: Syncope, aorta protocol TECHNIQUE: Imaging protocol: Computed tomographic angiography of the abdomen and pelvis with contrast. Exam focused on the arteries. 3D rendering (Not supervised by radiologist): MIP and/or 3D reconstructed images were created by the technologist. Radiation optimization: All CT scans at this facility use at least one of these dose optimization techniques: automated exposure control; mA and/or kV adjustment per patient size (includes targeted exams where dose is matched to clinical indication); or iterative reconstruction. Contrast material: OMNIPAQUE 350; Contrast volume: 125 ml; Contrast route: INTRAVENOUS (IV); COMPARISON: CT abdomen pelvis wo con [id number] 12/24/2024 6:22 PM RADIATION DOSE METRICS: Total DLP (mGy-cm): 1413.04 FINDINGS: Aorta: No aortic aneurysm. No aortic dissection. Celiac trunk and mesenteric arteries: No occlusion or significant stenosis. Renal arteries: No occlusion or significant stenosis. Right iliac arteries: No occlusion or significant stenosis. Left iliac arteries: No occlusion or significant stenosis. Liver: Multiple geographic low-density liver lesions are seen in the liver, the largest localized in segment 4A left lobe of the liver about 2 cm in diameter possibly indicating a hemangioma based on a mean density of-0.6 Hounsfield units. Gallbladder and biliary ducts: Unremarkable. No calcified stones. No ductal dilation. Pancreas: Unremarkable. No mass. No ductal dilation. Spleen: Unremarkable. No splenomegaly. Adrenal glands: Redemonstration of 3 cm well-circumscribed low-density left adrenal nodule with a mean density of-15 Hounsfield units. This is unchanged from the prior study and consistent with a lipid rich adenoma.No follow-up is necessary. (Reference: [facility]) Kidneys and ureters: Redemonstration of nonobstructing small left renal calculi. No solid mass. No hydronephrosis. Previously noted calculus in the proximal right ureter is not seen on today's exam. Redemonstration of simple small exophytic cyst in the right kidney. Stomach and bowel: Unremarkable. No obstruction. No mucosal thickening. Appendix: No evidence of appendicitis. Intraperitoneal space: Unremarkable. No free air. No significant fluid collection. Lymph nodes: Unremarkable. No enlarged lymph nodes. Urinary bladder: Unremarkable. No mass. Reproductive: Unremarkable as visualized. Bones/joints: No acute fracture. Soft tissues: Unremarkable. CT/CT [facility] [id number] IMPRESSION: 1. No acute findings. 2. Other findings as above. REFERENCES: Jose KRAUS, et al. Management of Incidental Adrenal Masses: A White Paper of the ACR Incidental Findings Committee. J Am Alissa Radiol. 2017;14(8):8469-8741.
--- NOTE | 2025-02-21 16:18 | ED_ITS ---
HPI - Headache 2 General: Chief Complaint: Headache Stated Complaint: secsures Time Seen by Provider: 02/21/25 16:03 History of Present Illness: Chief complaint is I had a seizure. The patient states that about an hour prior to arrival and he was in his truck. He states he stood up and got out of his truck and he was standing there and he started feeling lightheaded and dizzy. He states that he then started to feel like his vision went out and he could hear everyone around him but he could not see anything and he felt like he was going to pass out. He states he did not pass out and was able to stay standing up. He was with others and they state he did not go unconscious completely. He then started feeling a little bit better and then he came here. His states that while they were coming into the emergency department that he had another episode where he started feeling like he was getting lightheaded and started shaking his arms and head and felt like he was going to pass out but he did not fall and was able to continue talking. Related Data Previous Rx's ?Medication ?Instructions ?Recorded epinephrine 0.125 mg/actuation 1 puff inhalation Q6H P RN 12/16/21 aerosol inhaler (Primatene Mist) bronchodilation #11.7 grams insulin glargine 100 unit/mL (3 40 unit (0.4 mL) SUBCU T DAILY #45 08/25/24 mL) subcutaneous pen (Lantus mL Solostar U-100 Insulin) tamsulosin 0.4 mg capsule 0.4 mg PO DAILY #30 caps promethazine 25 mg tablet 25 mg PO Q6H PRN nausea and 10/31/24 vomiting #20 tabs tirzepatide 10 mg/0.5 mL 10 mg (0.5 mL) SUBCUT Q7D 1 month 12/11/24 subcutaneous pen injector #2 mL tirzepatide 5 mg/0.5 mL 5 mg (0.5 mL) SUBCUT Q7D 90 days 12/25/24 subcutaneous pen injector #6.5 mL (Mounjaro) atorvastatin 40 mg tablet 40 mg PO DAILY #90 tabs 01/09 08/05 lisinopril 40 mg tablet 40 mg PO DAILY #90 tabs 01/09 08/05 potassium chloride 20 mEq 40 meq (2 x 20 mEq) PO ONCE #60 01/19/25 tablet,extended release (K-Tab) tabs buspirone 7.5 mg tablet See Rx Instructions .Route 0 02/12/25 .COMPLEX #60 tabs Allergies Allergy/AdvReac Type Severity Reaction Status Date / Time empagliflozin (From Allergy Intermediate ADR-Dizzine Verified 02/21/25 14:11 Jardiance) ss codeine Allergy rash Verified 02/21/25 14:11 Penicillins Allergy rash Verified 02/21/25 14:11 PFS ED 2 PFSH: Medical History (Updated 02/21/25 @ 17:59 by Fabricio Santos MD) Hypokalemia Lower back pain Screening for prostate cancer Cigarette smoker motivated to quit Bilateral leg cramps Allergic rhinitis due to allergen Umbilical hernia without mention of obstruction or gangrene Diabetes mellitus type 2 in obese Bilateral renal stones Coincidental discovery on CT scan December and Mar 2021. Bilateral non- obstructing renal stones, left greater than sign right. Exercise-induced coughing episode Erectile dysfunction Hypertension Uncontrolled hypertension Anxiety and depression Obesity (BMI 35.0-39.9 without comorbidity) Surgical History H/O hernia repair Family History Other Cancer Diabetes Hypertension Social History Smoking and tobacco/nicotine status: current every day tobacco/nicotine user cigarettes Packs smoked per day: 1.5 Alcohol intake: current Alcohol intake frequency: few times a month Substance/Drug Use: never Adopted: No Caregiver/support person: No Lives independently: Yes Marital status: Number of children: 4 Number of grandchildren: 0 Current occupational status: employed Current gender identity: Male Physical Exam 2 Narrative: EXAM NARRATIVE: Patient sitting up in the bed telling jokes and alert in no acute distress. No signs of trauma to his head. Pupils are equal and reactive to light. No conjunctival injection. Moist mucous membranes. No facial droop. Neck is supple. He moves his neck freely. Heart regular rhythm no rubs or murmurs. Lung sounds are clear. Abdomen soft nontender. No guarding or rebound. No palpable mass. Extremities warm well-perfused. No calf tenderness or pitting edema. No rash in exposed areas. Skin is warm and dry. Speech is clear. He has no drift in his arms or legs. He has intact cerebellar function except for a tremor which she states is chronic. Grossly intact visual vasquez. He appears mildly anxious but has appropriate affect. Course 2 Vital Signs: Vital signs: Vital Signs Temperature 97.8 F 02/21/25 14:04 Pulse Rate 94 02/21/25 17:11 Blood Pressure 145/94 02/21/25 17:11 Pulse Oximetry 97 02/21/25 17:11 Oxygen Delivery Me thod Room Air 02/21/25 16:11 MDM - Headache Medical Decision Making History is obtained from the patient and his . Patient reports having 2 seizures. The description of the seizures however he feels lightheaded and dizzy preceding these episodes and he does not fall to the ground but has shaking in both his arms and his head. History not suggestive of seizure. I advised potential for atypical seizures however with his history much more likely near syncopal event. I advised very broad differential with syncopal event or near syncopal event including PE, cardiac dysrhythmia, other causes of hypotension, blood loss or sepsis, among many others. He denies having any fever. He denies having chest pain or chest discomfort or palpitations or shortness of breath associated with these episodes or currently. No vomiting or diarrhea. No black or bloody stools. No dysuria. No hematuria. No abdominal pain. No flank or back pain. He did have kidney stones removed using a laser at the beginning of this month and he just had the stent removed on Wednesday. He did have some blood in his urine initially but that resolved. He denies having any flank or abdominal pain. No runny nose cough or congestion. No recent mobility or leg pain or swelling or history of PE or DVT to suggest PE. Denies having any history of heart problems but he does have diabetes. He denies any upper back or chest discomfort. He states he does have a dull pressure on his head after these episodes. He states he has also had some dull headaches off and on today. He did have some sharp pain in his upper back and base of the neck earlier today. No black or bloody stools. He denies any fever. Differential very broad including serious cardiac dysrhythmia, dissection, PE, among many others. CBC CMP troponin EKG urinalysis ordered as well as CT of the head and CT angio chest abdomen pelvis. With his recent stent bladder perforation or ureter perforation, UTI, among others considered. White count is elevated. Potassium 3.3. I ordered 40 mill equivalents of potassium p.o. Patient's white blood cell count elevated. Urinalysis shows blood but not suggestive of infection. CT head and chest and pelvis negative for acute process. Advised patient follow-up on the test results and other findings on CT with his doctor. Troponin and delta troponin are not significant elevated. Patient EKG to my interpretation shows sinus rhythm with first-degree block with a rate of [address] segment changes. I discussed with the patient broad differential and limits of ED evaluation. Advised cannot exclude seizure or serious cardiac dysrhythmia among others. Also advised white count is elevated cannot exclude occult infection. I discussed with him doing a lumbar puncture and reasoning. He has no meningeal signs. He is nodding his head as he is talking to me and he touches his chin to his chest as he sits up. He moves his neck freely. He denies any cold sores. I advised encephalitis and meningitis as potential causes of infection and headache and seizures. I discussed doing lumbar puncture on reasoning. He declines and does not want LP after informed discussion. I discussed admission for further observation for cardiac dysrhythmia among other causes of his symptoms. Patient declines and wants to go home. I advised activity restrictions and no driving or heights or operating machinery or exertion or swimming until cleared by his doctor. Advised reasoning. Advised prompt return instructions for any concerning symptoms and close outpatient follow-up. I advised follow-up on the CT and other lab results and lesions on the liver among others and follow-up on all the details of his workup with his primary care doctor. Patient capable and informed and requesting discharge home. Patient is on tamsulosin. I advised him to ask his doctor if he could stop this as could increase risk of syncope or near syncope. Lab Data 02/21/25 14:23 02/21/25 14:[address] 02/21/25 16:15 IMPRESSION: No acute intracranial abnormality. Chest/Abdomen/Pelvis CTA 02/21/25 16:17 IMPRESSION: 1. No acute findings. 2. Other findings as above. REFERENCES: FlahertyBraulio KRAUS, et al. Management of Incidental Adrenal Masses: A White Paper of the ACR Incidental Findings Committee. J Am Alissa Radiol. 2017;14(8):7439-6623. Laboratory Results WBC 14.43 10^3/uL (3.29-11.43) H 02/21/25 14:23 RBC 5.31 10^6/uL (3.85-5.65) 02/21/25 14:23 Hgb 15.70 g/dL (11.27-16.99) 02/21/25 14:23 Hct 45.9 % (37-53) 02/21/25 14:23 MCV 86.4 fl (82-101) 02/21/25 14:23 MCH 29.6 pg (27-33) 02/21/25 14:23 MCHC 34.2 g/dL (30-55) 02/21/25 14:23 RDW 12.9 % (12.1-15.1) 02/21/25 14:23 Plt Count 346 10^3/cmm (157-399) 02/21/25 14:23 MPV 8.9 fL (7.4-10.4) 02/21/25 14:23 Neut % (Auto) 57.5 % 02/21/25 14:23 Lymph % (Auto) 34.0 % 02/21/25 14:23 Monroe % (Auto) 4.4 % 02/21/25 14:23 Eos % (Auto) 3.0 % 02/21/25 14:23 Baso % (Auto) 0.8 % 02/21/25 14:23 Neut # (Auto) 8.29 10^3/uL (1.8-7.7) H 02/21/25 14:23 Lymph # (Auto) 4.9 10^3/uL (0.8-4.8) H 02/21/25 14:23 Monroe # (Auto) 0.6 10^3/uL (0.2-0.9) 02/21/25 14:23 Eos # (Auto) 0.4 10^3/uL (0.0-0.8) 02/21/25 14:23 Baso # (Auto) 0.1 10^3/uL (0.0-0.1) 02/21/25 14:23 Nucleated RBC % (auto) 0 % 02/21/25 14:23 Nucleated RBCs # 0.0 /100WBC 02/21/25 14:23 Sodium 139 mmol/L (136-145) 02/21/25 14:23 Potassium 3.3 mmol/L (3.5-5.1) L 02/21/25 14:23 Chloride 100 mmol/L (98-107) 02/21/25 14:23 Carbon Dioxide 26 mmol/L (22-29) 02/21/25 14:23 Anion Gap 16.3 (5-19) 02/21/25 14:23 BUN 18 mg/dL (6-20) 02/21/25 14:23 Creatinine 1.1 mg/dL (0.7-1.2) 02/21/25 14:23 GFR Calculation 71.8 mL/min (90-130) L 02/21/25 14:23 Glucose 133 mg/dL (65-115) H 02/21/25 14:23 Calculated Osmolality 292 mOsm/kg (285-295) 02/21/25 14:23 Calcium 9.4 mg/dL (8.5-10.5) 02/21/25 14:23 Total Bilirubin 0.6 mg/dL (0.15-1.2) 02/21/25 14:23 AST 11 U/L (0-40) 02/21/25 14:23 ALT 14 U/L (0-41) 02/21/25 14:23 Alkaline Phosphatase 86 U/L (40-130) 02/21/25 14:23 Troponin T Baseline 8 ng/L (0-15) 02/21/25 14:23 Troponin T 120 Minute 10.17 ng/L (0-15) 02/21/25 16:35 Delta Troponin T 2.17 ABS# (0-10) 02/21/25 16:35 Total Protein 7.1 g/dL (6.6-8.7) 02/21/25 14:23 Albumin 4.1 g/dL (3.5-5.2) 02/21/25 14:23 Globulin 3.0 g/dL (1.3-4.6) 02/21/25 14:23 Urine Color Yellow (Yellow) 02/21/25 16:32 Urine Appearance Clear (CLEAR) 02/21/25 16:32 Urine pH 5.5 (5-7) 02/21/25 16:32 Ur Specific Monon 1.024 (1.005-1.030) 02/21/25 16:32 Urine Protein 1+ (Negative) A 02/21/25 16:32 Urine Glucose (UA) Negative (Normal) 02/21/25 16:32 Urine Ketones Trace (Negative) 02/21/25 16:32 Urine Blood 2+ (Negative) A 02/21/25 16:32 Urine Nitrate Negative (Negative) 02/21/25 16:32 Urine Bilirubin Negative (Negative) 02/21/25 16:32 Urine Urobilinogen 1.0 mg/dL (Negative) 02/21/25 16:32 Ur Leukocyte Esterase 1+ (Negative) A 02/21/25 16:32 Urine RBC 11-20 /hpf (0-2) H 02/21/25 16:32 Urine WBC 6-10 /hpf (0-5) 02/21/25 16:32 Ur Squamous Epith Cells 0-5 /hpf (0-5) 02/21/25 16:32 Amorphous Sediment Not Reportable 02/21/25 16:32 Urine Bacteria None seen /hpf (NONE) 02/21/25 16:32 Hyaline Casts 29.78 /lpf 02/21/25 16:32 Urine Mucus 4+ /hpf 02/21/25 16:32 All radiology interpretation(s) finalized by discharge Discharge Plan Discharge Patient Disposition: Home Clinical Impression: Near syncope, Episode of shaking Condition: Stable Prescriptions: No Action Primatene Mist 0.125 mg/actuation HFA aerosol inhaler 1 puff inhalation Q6H PRN (Reason: bronchodilation) Qty: 11.7 3RF Rx Instructions: may repeat once after 1 minute Mounjaro 5 mg/0.5 mL pen injector 5 mg SUBCUT Q7D 90 Days Qty: 6.5 2RF tamsulosin 0.4 mg capsule 0.4 mg PO DAILY Qty: 30 2RF potassium chloride [K-Tab] 20 mEq tablet extended release 40 meq PO ONCE Qty: 60 3RF atorvastatin 40 mg tablet 40 mg PO DAILY Qty: 90 1RF Rx Instructions: Take one tablet by mouth daily. lisinopril 40 mg tablet 40 mg PO DAILY Qty: 90 1RF insulin glargine [Lantus Solostar U-100 Insulin] 100 unit/mL (3 mL) insulin pen 40 unit SUBCUT DAILY Qty: 45 1RF Rx Instructions: Start with 20 units daily tirzepatide 10 mg/0.5 mL pen injector 10 mg SUBCUT Q7D 30 Days Qty: 2 0RF buspirone 7.5 mg tablet See Rx Instructions .ROUTE .COMPLEX Qty: 60 1RF Dose Instruction: TAKE ONE TABLET BY MOUTH THREE TIMES DAILY Rx Instructions: TAKE ONE TABLET BY MOUTH THREE TIMES DAILY promethazine 25 mg tablet 25 mg PO Q6H PRN (Reason: nausea and vomiting) Qty: 20 0RF Discharge Orders: Discharge ED (Routine); Ordered 02/21/25 Ordered By: Fabricio Santos Discharge Activity: Limit activity as instructed Patient Instructions: Opioid Safety, Pain Management, Patient Portal & [facility] Instructions Activity Restrictions/Additional Instructions: Tamsulosin can increase risk of drop in blood pressure and passing out or near passing out. Ask your doctor if you can stop it. Make sure to drink plenty of fluid. No driving or heights or operating machinery or swimming or exerting yourself until cleared by your doctor. Come back if you change your mind for any reason, passing out, confusion, concerning or worsening headache, fever, vomiting, weakness in your arms or legs, getting worse instead of better, any concerns. Please follow-up on your test results with your doctor. Print Language: Greenlandic Coding Level of Care Code ED [employer] Operator for Melissa Mercado
--- NOTE | 2025-02-21 16:18 | ECG_ITS ---
[email or web address] Test Date: 2025-02-21 Pat Name: Ethan Nickerson Department: Room: Gender: Male S[employer] Head Operator: : 1975 Requested By: Fabricio Santos Order Number: [id number] Reading MD: Measurements Intervals Pace Rate: 81 P: 47 IN: 214 QRS: 7 QRSD: 92 T: 45 QT: 367 QTc: 427 Interpretive Statements SINUS RHYTHM WITH FIRST DEGREE AV BLOCK NONSPECIFIC T-WAVE ABNORMALITY [email or web address]
[2025-02-21 16:45] LABS: Glucose Urine UA Negative (Normal); Nitrate Urine Negative (Negative); Specific Gravity, Urine 1.024 (1.005-1.030)
[2025-02-21 16:48] LABS: Add Urine Microscopic? YES
[2025-02-21 17:00] LABS: UA Slide Review UA Slide Review Perf
[2025-02-21 17:00] LABS: Troponin(5th) Baseline 8 ng/L (0-15)
[2025-02-21] MEDS: iohexol 350 mg/mL 500 mL Btl (per mL) IV (17:01)
[2025-02-21 17:11] VITALS: BP 145/94; PULSE 94; O2SAT 97
[2025-02-21 17:28] LABS: Troponin 5 2HR 10.17 ng/L (0-15); Troponin 5 2HR Delta 2.17 ABS# (0-10)
--- OUTSIDE RECORDS SUMMARY | 2025-02-21 21:55 | XMS_ITS | Patient Health Record ---
Author Organization [facility], [facility] Address [address] [place] [address] Care Team Providers Care Branch Operations Specialist Name Role Phone STEFANI HANSON Primary Care Provider Unabeverly tilleyDIANA Beltran Unavailable [phone] JAE VILLALTA Unavailable [phone] Allergies Allergen (clinical drug ingredient) Drug/Non Drug Allergy documented on EMR Reaction Allergy Type Onset Date Status codeine Codeine Unknown Drug Allergy Active Penicillin anaphylaxis Drug Allergy Acti ve Results Component Value Reference Range Notes Urinalysis, Routine Reviewed date:02/19/2025 09:05:53 AM Interpretation: Performing Lab: Notes/Report: Urine-Color dark yellow Appearance clear Glucose - Bilirubin - Ketones - Specific [place] 1.015 Occult Blood 3+ pH 6.5 Urine Protein 1+ Urobilinogen,Semi-Qn - Nitrite, Urine - WBC Esterase trace Urinalysis, Routine Reviewed date:09/11/2024 10:12:23 AM Interpretation: Performing Lab: Notes/Report: Urine-Color yellow Appearance clear Glucose 3+ Bilirubin - Ketones - Specific [place] 1.015 Occult Blood +- pH 6.0 Urine Protein 1+ Urobilinogen,Semi-Qn - Nitrite, Urine - WBC Esterase - Urinalysis, Routine Reviewed date:10/12/2024 03:05:38 PM Interpretation: Performing Lab: Notes/Report: Urine-Color yellow Appearance clear Glucose 3+ Bilirubin - Ketones - Specific [place] 1.010 Occult Blood trace pH 6.0 Urine Protein - Urobilinogen,Semi-Qn - Nitrite, Urine - WBC Esterase - Urinalysis Gross Exam - Urinalysis, Routine Reviewed date:02/02/2025 08:37:18 AM Interpretation: Performing Lab: Notes/Report: Urine-Color yellow Appearance clear Glucose - Bilirubin - Ketones - Specific [place] 1.015 Occult Blood 3+ pH 7.0 Urine Protein - Urobilinogen,Semi-Qn - Nitrite, Urine - WBC Esterase - UBASE - Urinary Tract Infect ion (HTRx) Reviewed date:02/05/2025 08:27:41 AM Interpretation: Performing Lab:, [facility], [address] [place] [address], Phone - [phone], Director - [phone] Notes/Report: Acinetobacter baumannii 0 19.961 - 24.689 ppm Acinetobacter baumannii Not Detected 19.961 - 24.689 ppm Citrobacter freundii 0 23.000 - 32 .015 ppm Citrobacter freundii Not Detected 23.000 - 32 .015 ppm Enterobacter aerogenes, cloacae 0 23.000 - 32.290 ppm Enterobacter aerogenes, cloacae Not Detected 23.000 - 32.290 ppm Enterococcus faecalis, faecium 0 26.000 - 33.043 ppm Enterococcus faecalis, faecium Not Detected 26.000 - 33.043 ppm Escherichia coli 0 23.000 - 28.500 ppm Escherichia coli Not Detected 23.000 - 28.500 ppm Klebsiella pneumoniae, oxytoca 0 23.000 - 31.865 ppm Klebsiella pneumoniae, oxytoca Not Detected 23.000 - 31.865 ppm Morganella morganii 0 19.961 - 24. 689 ppm Morganella morganii Not Detected 19.961 - 24. 689 ppm Proteus mirabilis, vulgaris 0 23.000 - 28.500 ppm Proteus mirabilis, vulgaris Not Detected 23.000 - 28.500 ppm Pseudomonas aeruginosa 0 23.000 - 31.801 ppm Pseudomonas aeruginosa Not Detected 23.000 - 31.801 ppm Staphylococcus aureus 0 26.000 - 3 1.595 ppm Staphylococcus aureus Not Detected 26.000 - 3 1.595 ppm Streptococcus agalactiae (Group B Strep) 0 26.000 - 32.435 ppm Streptococcus agalactiae (Group B Strep) Not Detected 26.000 - 32.435 ppm Sparkle albicans, parapsilosis, tropicalis 0 23.000 - 30.347 ppm Sparkle albicans, parapsilosis, tropicalis Not Detected 23.000 - 30.347 ppm Sparkle glabrata (Nakaseomyces glabratus) 0 23.000 - 31.618 ppm Sparkle glabrata (Nakaseomyces glabratus) Not Detected 23.000 - 31.618 ppm Sparkle krusei (Pichia kudriavzevii) 0 23.000 - 30.873 ppm Sparkle krusei (Pichia kudriavzevii) Not Detected 23.000 - 30.873 ppm Serratia marcescens 0 23.000 - 31. 581 ppm Serratia marcescens Not Detected 23.000 - 31. 581 ppm Streptococcus pyogenes (Group A strep) 0 19.961 - 24.689 ppm Streptococcus pyogenes (Group A strep) Not Detected 19.961 - 24.689 ppm Staphylococcus saprophyticus 0 19.961 - 24.689 ppm Staphylococcus saprophyticus Not Detected 19.961 - 24.689 ppm Staphylococcus epidermidis, haemolyticus, lugdunensis 0 19.961 - 24.689 ppm Staphylococcus epidermidis, haemolyticus, lugdunensis Not Detected 19.961 - 24.689 ppm Basic Metabolic Panel Reviewed date:11/07/2024 12:46:32 PM Interpretation: Performing Lab: Notes/Report: Testing performed at [facility], [address] [place] [address] [place] [address]. CLIA ID#: [id number] W-jvcbhv-y-benzoquinone imine (NAPQI) is a metabolite of acetaminophen, NAPQI concentrations of apparoximately 10 mg/L correlation to toxic levels of acetaminophen demonstrates a greater than or equil to 10% change in results. NAPQI concentrations greater than this may lead to falsely depressed results for patient samples. Calculation performed from GFR calculator provided by the National Kid[employer]. Glomerular Filtration rate(GRF) is the best overall index of kidney function. Normal GFR varies according to age,sex, body size, and declines with age. The National Kidney Foundation recommends using the CKD-EPI Creatinine Equation(2020) to estimate GFR. Testing performed at: [address] [place] [address] CLIA ID [id number] Use of this assay is not recommended for patients undergoing treatment with phenindione, due to the potential for falsely depressed results. Sodium 141 136-145 MMOL/L Potassium 3.6 3.5-5.1 MMOL/L Chloride 98 98-107 MMOL/L CO2 32.8 20.0-31.0 MMOL/L Glucose Serum 158 71-110 MG/DL BUN 10 7-21 MG/DL Creat .70 .57-1.17 MG/DL GFR 113.8 Anion Gap 14 5-15 BUN/Creat Ratio 14.3 12.0-20.0 % Calcium 9.7 8.7-10.4 MG/DL Osmo Serum,Calculated 294 280-300 MOSM/KG CBC w/ Auto Diff Reviewed date:11/07/2024 12:46:32 PM Interpretation: Performing Lab: Notes/Report: Testing performed at: [place] [address] CLIA ID [id number] WBC 13.5 4.5-11.0 X10'3 RBC 5.73 4.50-5.90 X10'6 Hgb 16.8 13.5-17.5 G/DL Hct 49.9 41.0-53.0 % MCV 87.1 80.0-100.0 FL MCH 29.3 27.0-31.0 PG MCHC 33.7 31.0-37.0 G/DL Platelet 366 150-400 X10'3 RDW-SD 40.9 35.0-49.0 FL RDW-CV 12.7 12.2-15.6 % MPV 9.5 9.2-12.0 FL Neutro Auto% 59.5 40.0-70.0 % Lymph Auto% 29.2 22.0-44.0 % Upton Auto% 5.3 3.0-7.0 % Eos Auto% 5.0 2.0-4.0 % Baso Auto% 0.7 0.0-1.0 % Imm Gran% .3 .0-.4 % Neutro Abs 8.03 .80-7.70 Absolute Neutrophil Count 8030 Lymph Abs 3.95 .10-4.10 [place]pton Abs .72 .20-1.00 Eos Abs .68 .00-.40 Baso Abs .10 .00-.20 Imm Gran Abs .04 .00-.10 NRBC# .00 .00-.20 NRBC% .00 .00-.20 /100 intact WBC's Culture Urine Reflex Reviewed date:11/13/2024 11:47:04 AM Interpretation: Performing Lab: Notes/Report: Testing performed at: [address] [place] [address] CLIA ID [id number] Culture Urine Reflex MACHO Melendez Culture Urine Reflex t: Culture Urine Reflex Culture Urine Reflex Accessio [id number] Culture Urine Reflex n: Culture Urine Reflex Microbiology Culture Urine Reflex PROCEDURE: Culture Urine Reflex [] Culture Urine Reflex SOURCE: Urine BODY SITE: Culture Urine Reflex COLLECTED DATE/TIME : 11/06/2024 11:58 CDT RECEIVED DATE/TIME: 11/06/2024 12:42 CDT Culture Urine Reflex START DATE/TIME: 11/06/2024 12:42 CDT FREE TEXT SOURCE: Culture Urine Reflex FINAL REPORT Culture Urine Reflex Final Report [] Culture Urine Reflex Verified Date/Time: 11/08/2024 06:23 CDT Culture Urine Reflex <10,000 cfu/ml Mixe d Superficial [place] Basic Metabolic Panel Reviewed date:02/12/2025 08:43:35 AM Interpretation: Performing Lab: Notes/Report: Testing performed at [facility], [address] [place] [address] [place] [address]. CLIA ID#: [id number] X-mjwvpv-j-benzoquinone imine (NAPQI) is a metabolite of acetaminophen, NAPQI concentrations of apparoximately 10 mg/L correlation to toxic levels of acetaminophen demonstrates a greater than or equil to 10% change in results. NAPQI concentrations greater than this may lead to falsely depressed results for patient samples. Calculation performed from GFR calculator provided by the National Kid[employer]. Glomerular Filtration rate(GRF) is the best overall index of kidney function. Normal GFR varies according to age,sex, body size, and declines with age. The National Kidney Foundation recommends using the CKD-EPI Creatinine Equation(2020) to estimate GFR. Testing performed at: [address] [place] [address] CLIA ID [id number] Use of this assay is not recommended for patients undergoing treatment with phenindione, due to the potential for falsely depressed results. Sodium 140 136-145 MMOL/L Potassium 3.4 3.5-5.1 MMOL/L Chloride 103 98-107 MMOL/L CO2 27.8 20.0-31.0 MMOL/L Glucose Serum 118 71-110 MG/DL BUN 9 7-21 MG/DL Creat .87 .57-1.17 MG/DL GFR 106.7 Anion Gap 13 5-15 BUN/Creat Ratio 10.3 12.0-20.0 % Calcium 9.9 8.7-10.4 MG/DL Osmo Serum,Calculated 290 280-300 MOSM/KG Stone Analysis (Calculi) Reviewed date:02/14/2025 01:22:59 PM Interpretation: Performing Lab: Notes/Report: Calculi Mass 24 Calculi Description See Note Specimen consists of three brown and morataya calculi fragments. Specimen was not received in the preferred dry state. The presence of liquid, blood, gel, or adhesive often delays analysis. The total weight is 24 mg. Calculi Composition See Note Calculi composed primarily of: 50% calcium oxalate monohydrate, 30% calcium oxalate dihydrate, and 20% calcium phosphate (hydroxy- and carbonate- apatite). INTERPRETIVE INFORMATION: Calculi (Stone) analysis Calculi are the products of physiological processes that yield crystalline compounds in a matrix of biological compounds and blood. Matrix components are not reported. The clinically significant crystalline components identified in calculi specimens are reported. Gross description may not be consistent with composition determined by FTIR analysis. Performed By: [employer] [address] [place] [address] Pathology Supervisor: Miguel Ángel Lockhart MD, PhD CLIA Number: [id number] Testing performed at: [address] [place] [address] CLIA ID [id number] Reviewed date:02/12/2025 08:43:35 AM Interpretation: Performing Lab: Notes/Report: CYMQ-ANK-BRKY 124 WBG was perfor med at [facility] under CLIA# [id number]. POCT-WBG Performed By Elisa diaz performed at: [address] [place] [address] CLIA ID [id number] Order Activation Reviewed date:02/12/2025 08:43:35 AM Interpretation: Performing Lab: Notes/Report: Order Activation Complete Testing per formed at: [address] [place] [address] CLIA ID [id number] zzzRetrograde Urography Reviewed date:02/12/2025 08:43:35 AM Interpretation: Performing Lab: Notes/Report: See Below For Report Retrograde Urography Read See Below For Report Reason For Referral No Information Medications Medication SIG (Take, Route, Frequency, Duration) Notes Start Date End Date Status busPIRone HCl 7.5 MG 1 tablet Orally Twi ce a day Active Potassium 99 MG 1 tablet Orally Once a day Active Atorvastatin Calcium 40 MG 1 tablet Oral ly Once a day Active Tamsulosin HCl 0.4 MG 1 capsule Orally O nce a day Active dexAMETHasone 1 MG 1 tablet Orally at 1 1pm night before 2nd cortisol test; Duration: 1 days 09/11/2024 Active Lisinopril 30 MG 1 tablet Orally Once a day Active Ciprofloxacin HCl 500 MG 1 tablet Orally every 12 hrs; Duration: 3 days 02/19/2025 Active amLODIPine Besylate 10 MG 1 tablet Orall y Once a day Active Sertraline HCl 100 MG 1 tablet Orally On ce a day Active Klor-Con M20 20 MEQ 1 tablet with food O rally Once a day Active Social History Tobacco Use: Social History Observation Description Date Details (start date - stop date) Current Smoker NA - NA Tobacco Control (Standard) Question Answer Notes Tobacco use: Current smoker How often do you smoke cigarettes? Every day How many cigarettes a day do you smoke? 21-30 Are you interested in quitting? Not ready to matteo t AUDIT-C (Standard) Question Answer Notes Did you have a drink containing alcohol in the p ast year? No Points 0 Interpretation Negative Section Notes: currently has 1 - 5 drinks a day smokes a pack and a 1/2 a day denies drug use currently has 1 - 5 drinks a day smokes a pack and a 1/2 a day denies drug use currently has 1 - 5 drinks a day smokes a pack and a 1/2 a day denies drug use currently has 1 - 5 drinks a day smokes a pack and a 1/2 a day denies drug use Problems Problem Type SNOMED Code ICD Code Onset Dates Problem Status W/U Status Risk Notes Problem Lower urinary tract symptoms due to benign prostatic hypertrophy (91675505818647) Benign prostatic hyperplasia with lower urinary tract symptoms (N40.1) Active confirmed Problem Current smoker (55900919) Current smoker (F17.200) Active confirmed Problem Hypertension (80082720) Uncontrolled hypertension (I10) Active confirmed Problem Essential hypertension (27633662) Hypertension, unspecified type (I10) Active confirmed Problem Diabetes mellitus uncontrolled (759088006) Uncontrolled diabetes mellitus (E11.65) Active confirmed Problem Nodule of adrenal cortex (disorder) (065622695) Adrenal nodule (E27.8) Active confirmed Problem Kidney stone (00871949) Bilateral nephrolithiasis (N20.0) Active confirmed Problem Kidney stone (36961268) Left nephrolithiasis (N20.0) Active confirmed Problem Hematuria (81388923) Hematuria (R31.9) Active confirmed Problem Disorder of urinary bladder (09811822) Bladder wall thickening (N32.89) Active confirmed Problem 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) Renal cyst, left (N28.1) Active confirmed Vital Signs Heart Rate 105 /min 02/19/2025 Blood pressure diastolic 108 mm Hg 02/19/2025 Height-cm 187.96 cm 02/19/2025 Weight-kg 104.33 kg 02/19/2025 Height 74 in 02/19/2025 Blood pressure systolic 156 mm Hg 02/19/2025 Weight 230 lbs 02/19/2025 BMI 29.53 kg/m2 02/19/2025 Procedures Procedure Date Ordered Date Performed Result Body Sit e Bladder Scan 09/11/2024 09/11/2024 N/A Encounters Encounter Location Date Provider Diagnosis [facility], [facility] [address] [place] [address] 02/09/2025 DIANA AZUL [facility], [facility] [address] [place] [address] 02/19/2025 DIANA AZUL Bilateral nephrolithiasis N20.0 ; Complicated UTI (urinary tract infection) N39.0 ; Low back pain M54.50 ; Hematuria R31.9 ; Nausea R11.0 ; Feeling unwell R68.89 and Uncontrolled diabetes mellitus E11.65 [facility], [facility] [address] [facility] [place] [address] 09/11/2024 JAE REANO Bilateral nephrolithiasis N20.0 ; Hematuria R31.9 ; Bladder wall thickening N32.89 ; Adrenal nodule E27.8 ; Renal cyst, left N28.1 ; Glucosuria R81 ; History of prostatitis Z87.438 ; History of UTI Z87.440 ; Current smoker F17.200 ; Uncontrolled diabetes mellitus E11.65 and Uncontrolled hypertension I10 [facility] [address] [facility] [address] [facility] [place] [address] 10/12/2024 DIANA AZUL Bilateral nephrolithiasis N20.0 ; Hematuria R31.9 ; Bladder wall thickening N32.89 ; Adrenal nodule E27.8 ; Renal cyst, left N28.1 ; Glucosuria R81 ; History of prostatitis Z87.438 ; History of UTI Z87.440 ; Current smoker F17.200 ; Uncontrolled diabetes mellitus E11.65 and Uncontrolled hypertension I10 [facility] [address] [place] [address] 11/10/2024 DIANA AZUL Left nephrolithiasis N20.0 [facility] [address] [place] [address] 02/02/2025 JAE REONEIL Bilateral nephrolithiasis N20.0 ; Complicated UTI (urinary tract infection) N39.0 ; Low back pain M54.50 ; Hematuria R31.9 ; Nausea R11.0 ; Feeling unwell R68.89 and Uncontrolled diabetes mellitus E11.65 [facility] [address] [place] [address] 02/19/2025 DIANA AZUL Bilateral nephrolithiasis N20.0 [facility] [address] [place] [address] 08/28/2024 DIANA AZUL [facility] [address] [place] [address] 09/12/2024 JAE PAWAN [facility] [address] [place] [address] 10/17/2024 [facility] [address] [place] [address] 10/19/2024 [facility] [address] [place] [address] 10/31/2024 [facility], [facility] [address] [place] [address] 11/06/2024 DIANA AZUL Bilateral nephrolithiasis N20.0 ; Pre-op evaluation Z01.818 ; Renal cyst, left N28.1 and Hypertension, unspecified type I10 [facility], [facility] [address] [facility] [place] [address] 11/10/2024 DIANA AZUL Bilateral nephrolithiasis N20.0 [facility], [facility] [address] [facility] [place] [address] 11/10/2024 DIANA AZUL [facility], [facility] [address] [facility] [place] [address] 02/06/2025 JAE VILLALTA [facility], [facility] [address] [facility] [place] [address] 02/06/2025 DIANA AZUL Assessments Encounter Date Diagnosis (ICD Code) Assessment Notes Treatment Notes Treatment Clinical Notes Section Notes 11/10/2024 Left nephrolithiasis (ICD-10 - N20.0) 11/10/2024 Bilateral nephrolithiasis (ICD-10 - N20.0) 11/06/2024 Bilateral nephrolithiasis (ICD-10 - N20.0) 02/02/2025 Complicated UTI (urinary tract infection) (ICD-10 - N39.0) 02/02/2025 Bilateral nephrolithiasis (ICD-10 - N20.0) 02/19/2025 Bilateral nephrolithiasis (ICD-10 - N20.0) 02/19/2025 Bilateral nephrolithiasis (ICD-10 - N20.0) 10/12/2024 Bilateral nephrolithiasis (ICD-10 - N20.0) 49 y/o M with bilateral nephrolithiasis, hematuria, left adrenal adenoma, bilateral renal cysts. Cysto was normal today. CT images reviewed with patient. I discussed treatment options for his renal stones with URS vs ESWL. I explained how the procedures are performed along with risks/benefits/a lternatives and postprocedural expectations. plan: he will need a new CT at some point to further assess the left adrenal adenoma - schedule L ESWL with possible stent at [facility] - RTC post op IKristi Scribe, am scribing for, and in the presence of, Dr. Azul. I, Dr. Diana Azul, personally performed the services prescribed in this documentation, as scribed by Kristi Odonnell, in my presence, and it is both accurate and complete. 10/12/2024 Hematuria (ICD-10 - R31.9) 49 y/o M with bilateral nephrolithiasis, hematuria, left adrenal adenoma, bilateral renal cysts. Cysto was normal today. CT images reviewed with patient. I discussed treatment options for his renal stones with URS vs ESWL. I explained how the procedures are performed along with risks/benefits/a lternatives and postprocedural expectations. plan: he will need a new CT at some point to further assess the left adrenal adenoma - schedule L ESWL with possible stent at [facility] - RTC post op IKristi Scribe, am scribing for, and in the presence of, Dr. Azul. I, Dr. Diana Azul, personally performed the services prescribed in this documentation, as scribed by Kristi Odonnell, in my presence, and it is both accurate and complete. 09/11/2024 Bilateral nephrolithiasis (ICD-10 - N20.0) 09/11/2024 Hematuria (ICD-10 - R31.9) 09/11/2024 Bladder wall thickening (ICD-10 - N32.89) 10/12/2024 Bladder wall thickening (ICD-10 - N32.89) 49 y/o M with bilateral nephrolithiasis, hematuria, left adrenal adenoma, bilateral renal cysts. Cysto was normal today. CT images reviewed with patient. I discussed treatment options for his renal stones with URS vs ESWL. I explained how the procedures are performed along with risks/benefits/a lternatives and postprocedural expectations. plan: he will need a new CT at some point to further assess the left adrenal adenoma - schedule L ESWL with possible stent at [facility] - RTC post op IKristi Scribe, am scribing for, and in the presence of, Dr. Azul. I, Dr. Diana Azul, personally performed the services prescribed in this documentation, as scribed by Kristi Odonnell, in my presence, and it is both accurate and complete. 02/19/2025 Complicated UTI (urinary tract infection) (ICD-10 - N39.0) 11/06/2024 Pre-op evaluation (ICD-10 - Z01.818) 02/02/2025 Low back pain (ICD-10 - M54.50) 11/06/2024 Renal cyst, left (ICD-10 - N28.1) 02/19/2025 Low back pain (ICD-10 - M54.50) 02/02/2025 Hematuria (ICD-10 - R31.9) 10/12/2024 Adrenal nodule (ICD-10 - E27.8) 49 y/o M with bilateral nephrolithiasis, hematuria, left adrenal adenoma, bilateral renal cysts. Cysto was normal today. CT images reviewed with patient. I discussed treatment options for his renal stones with URS vs ESWL. I explained how the procedures are performed along with risks/benefits/a lternatives and postprocedural expectations. plan: he will need a new CT at some point to further assess the left adrenal adenoma - schedule L ESWL with possible stent at [facility] - RT post op I, Kristi Odonnell, tonny Reid scribing for, and in the presence of, Dr. Azul. I, Dr. Diana Azul, personally performed the services prescribed in this documentation, as scribed by Kristi Odonnell, in my presence, and it is both accurate and complete. 09/11/2024 Adrenal nodule (ICD-10 - E27.8) 09/11/2024 Renal cyst, left (ICD-10 - N28.1) 02/19/2025 Hematuria (ICD-10 - R31.9) 10/12/2024 Renal cyst, left (ICD-10 - N28.1) 49 y/o M with bilateral nephrolithiasis, hematuria, left adrenal adenoma, bilateral renal cysts. Cysto was normal today. CT images reviewed with patient. I discussed treatment options for his renal stones with URS vs ESWL. I explained how the procedures are performed along with risks/benefits/a lternatives and postprocedural expectations. plan: he will need a new CT at some point to further assess the left adrenal adenoma - schedule L ESWL with possible stent at [facility] - RT post op Kristi Sinclair Scribe, am scribing for, and in the presence of, Dr. Azul. I, Dr. Diana Azul, personally performed the services prescribed in this documentation, as scribed by Kristi Odonnell, in my presence, and it is both accurate and complete. 11/06/2024 Hypertension, unspecified type (ICD-10 - I10) 02/02/2025 Nausea (ICD-10 - R11.0) 02/02/2025 Feeling unwell (ICD-10 - R68.89) 02/19/2025 Nausea (ICD-10 - R11.0) 09/11/2024 Glucosuria (ICD-10 - R81) 10/12/2024 Glucosuria (ICD-10 - R81) 49 y/o M with bilateral nephrolithiasis, hematuria, left adrenal adenoma, bilateral renal cysts. Cysto was normal today. CT images reviewed with patient. I discussed treatment options for his renal stones with URS vs ESWL. I explained how the procedures are performed along with risks/benefits/a lternatives and postprocedural expectations. plan: he will need a new CT at some point to further assess the left adrenal adenoma - schedule L ESWL with possible stent at [facility] - RT post op I, Jeanette Garcia am scribing for, and in the presence of, Dr. Azul. I, Dr. Diana Azul, personally performed the services prescribed in this documentation, as scribed by Kristi Odonnell, in my presence, and it is both accurate and complete. 10/12/2024 History of prostatitis (ICD-10 - Z87.438) 49 y/o M with bilateral nephrolithiasis, hematuria, left adrenal adenoma, bilateral renal cysts. Cysto was normal today. CT images reviewed with patient. I discussed treatment options for his renal stones with URS vs ESWL. I explained how the procedures are performed along with risks/benefits/a lternatives and postprocedural expectations. plan: he will need a new CT at some point to further assess the left adrenal adenoma - schedule L ESWL with possible stent at [facility] - RT post op Kristi Sinclair Scribe am scribing for, and in the presence of, Dr. Azul. I, Dr. Diana Azul, personally performed the services prescribed in this documentation, as scribed by Kristi Odonnell, in my presence, and it is both accurate and complete. 02/19/2025 Feeling unwell (ICD-10 - R68.89) 02/02/2025 Uncontrolled diabetes mellitus (ICD-10 - E11.65) 09/11/2024 History of prostatitis (ICD-10 - Z87.438) 09/11/2024 History of UTI (ICD-10 - Z87.440) 02/19/2025 Uncontrolled diabetes mellitus (ICD-10 - E11.65) 10/12/2024 History of UTI (ICD-10 - Z87.440) 49 y/o M with bilateral nephrolithiasis, hematuria, left adrenal adenoma, bilateral renal cysts. Cysto was normal today. CT images reviewed with patient. I discussed treatment options for his renal stones with URS vs ESWL. I explained how the procedures are performed along with risks/benefits/a lternatives and postprocedural expectations. plan: he will need a new CT at some point to further assess the left adrenal adenoma - schedule L ESWL with possible stent at [facility] post op I, Jeanette Garcia am scribing for, and in the presence of, Dr. Azul. I, Dr. Diana Azul, personally performed the services prescribed in this documentation, as scribed by Kristi Odonnell, in my presence, and it is both accurate and complete. 09/11/2024 Current smoker (ICD-10 - F17.200) 10/12/2024 Current smoker (ICD-10 - F17.200) 49 y/o M with bilateral nephrolithiasis, hematuria, left adrenal adenoma, bilateral renal cysts. Cysto was normal today. CT images reviewed with patient. I discussed treatment options for his renal stones with URS vs ESWL. I explained how the procedures are performed along with risks/benefits/a lternatives and postprocedural expectations. plan: he will need a new CT at some point to further assess the left adrenal adenoma - schedule L ESWL with possible stent at [facility] post op Yahir, Jeanette Garcia, am scribing for, and in the presence of, Dr. Azul. I, Dr. Diana Azul, personally performed the services prescribed in this documentation, as scribed by Kristi Odonnell, in my presence, and it is both accurate and complete. 10/12/2024 Uncontrolled diabetes mellitus (ICD-10 - E11.65) 49 y/o M with bilateral nephrolithiasis, hematuria, left adrenal adenoma, bilateral renal cysts. Cysto was normal today. CT images reviewed with patient. I discussed treatment options for his renal stones with URS vs ESWL. I explained how the procedures are performed along with risks/benefits/a lternatives and postprocedural expectations. plan: he will need a new CT at some point to further assess the left adrenal adenoma - schedule L ESWL with possible stent at [facility] post op I, Jeanette Garcia, am scribing for, and in the presence of, Dr. Azul. I, Dr. Diana Azul, personally performed the services prescribed in this documentation, as scribed by Kristi Odonnell, in my presence, and it is both accurate and complete. 09/11/2024 Uncontrolled diabetes mellitus (ICD-10 - E11.65) 09/11/2024 Uncontrolled hypertension (ICD-10 - I10) 10/12/2024 Uncontrolled hypertension (ICD-10 - I10) 49 y/o M with bilateral nephrolithiasis, hematuria, left adrenal adenoma, bilateral renal cysts. Cysto was normal today. CT images reviewed with patient. I discussed treatment options for his renal stones with URS vs ESWL. I explained how the procedures are performed along with risks/benefits/a lternatives and postprocedural expectations. plan: he will need a new CT at some point to further assess the left adrenal adenoma - schedule L ESWL with possible stent at [facility] post op I, Jeanette Garcia, am scribing for, and in the presence of, Dr. Azul. I, Dr. Diana Azul, personally performed the services prescribed in this documentation, as scribed by Kristi Odonnell, in my presence, and it is both accurate and complete. 09/11/2024 Other UA with glucosuria and trace hematuria today. PVR 20ml. We have discussed that his frequency and urgency may be related to his uncontrolled sugars. CT revealed a left adrenal mass that has increased in size since 2020 imaging. He has uncontrolled HTN and glucose. He needs full work up for adrenal lesion, and he has also had gross hematuria. Labs ordered. We discussed the indications and rationale for a hematuria workup including the possibility of malignancy causing hematuria. In terms of the workup specifically, we discussed the need for evaluation of the upper urinary tracts with radiologic imaging and the lower urinary tract with cystoscopy. We will set up the CT scan w/ and w/o contrast and delayed imaging per hematuria protocol. We will also schedule for next available cystoscopy with review of CT and labs. 02/02/2025 Other Still symptomatic of complicated UTI. Send urine for PCR. Start on Bactrim over the weeknend. Obtain all ER records, review CT on and I willl call patient on Wednesday after review. We have discussed indications to return to ER over the weekend. Plan Of Treatment Pending Test Test Name Order Date [id number] KUB, X-Ray: Abdomen, Kidney, Urete r, bladder 02/19/2025 [id number] KUB, X-Ray: Abdomen, Kidney, Urete r, bladder 11/10/2024 CT Abd & Pelvis W & WO IV contrast [id number] 09/11/2024 CORTISOL, TOTAL (367) 09/11/2024 METANEPHRINES, FRACT, FREE, LC/MS/MS, PL ASMA ([id number]) 09/11/2024 Electrocardiogram, 12 Lead Tracing-[id number] 11/06/2024 US Renal w/bladder--[id number] 02/19/2025 Future Test Test Name Order Date CORTISOL, TOTAL (367) 09/12/2024 Next Appt Details Provider Name:JAE VILLALTA, 1 08:00:00 AM, [address] [place], [address], Insurance Providers Payer Name Payer Address Payer Phone Subscriber Number Group Number Insured Name Patient Relationship to Insured Coverage Start Date Coverage End Date [facility] [address] [address] [place], [place] [phone] [id number] Macho Rutledge Self - patient is the insured Medical (General) History Medical History History ICD Code anxiety arthritis high cholesterol HTN depression diabetes back pain blood in urine burning with urination incontinence - unable to make it to the bathroom kidney stones waking 1-4 times a night to urinate UTI urinary urgency problems with sexual desire weak stream urine starts and stops Surgical History Surgery Date(Month/Year) right shoulder hernia lithotripsy/ sent placement Hospitalization History Reason Date(Month/Year) kidney infection / prostate high blood sugar
--- OUTSIDE RECORDS SUMMARY | 2025-02-21 21:55 | XMS_ITS | Encounter Summary ---
Author Organization [facility] Address [address] [place] [address] Care Team Providers Care Supervisor [place] Name Role Phone Unavailable Primary Care Provider Unavailabl e Reason for Referral * Outpatient Services (Routine) - Closed Specialty Diagnoses / Procedures Referred By Contjacqueline t Referred To Contact Diagnoses Inguinal hernia Procedures CT ABDOMEN PELVIS W CONTRAST Eduar Barbosa MD [address] [place] [phone] Phone: tel: fax: Referral ID Status Reason Start Date Expiration Date Visits Re quested Visits Authorized [id number] Closed 04/15/2010 10/12/2010 1 1 Encounter Details Date Type Department Care Team (Late st Contact Info) Description 04/15/2010 Ancillary Orders [facility] CT Scan [address] 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 Moderate in size fat containing left inguinal hernia and small fat containing umbilical hernia. 2. 1.5 cm indeterminate hypodensity of the left hepatic lobe and multiple subcentimeter hepatic hypodensities too small to accurately characterize by CT. Further evaluation with hepatic MRI with and without contrast could be performed if clinically warranted. 3. Subcentimeter right renal cortical hypodensity too small to accurately characterize by CT however statistically representing renal cortical cysts. caleb - uploaded from [employer] 04/18/2010 2:55 PM CDT Exam: CT ABDOMEN PELVIS W CONTRAST Date/Time of Exam: Apr 17, 2010 12:32:00 PM History: Inguinal hernia. Contrast: 125 mL intravenous Optiray-240. Comparison: None. Findings: Bibasilar dependent atelectatic change is seen. Subcentimeter hypodensity involving the dome of the liver on image 6 of series 2 is identified. A 1.5 cm indeterminate hypodensity involving the medial segment of the left hepatic lobe on image 10 of series 2 is identified. Subcentimeter hypodensity within the periphery of the anterior segment of the right hepatic lobe on image 18 of series 2 is identified. An ill-defined region of low attenuation anteriorly within the medial segment of the left hepatic lobe adjacent to the falciform ligament is identified. In the absence of known primary malignancy this is most consistent with a region of focal fatty infiltration of the liver/vascular variant. Two additional subcentimeter indeterminate hypodensities of the right hepatic lobe are noted inferiorly too small to accurately characterize by CT. The gallbladder, spleen, adrenal glands, pancreas, and left kidney are unremarkable. Subcentimeter cortical hypodensity involving the lateral aspect of the upper pole of the right kidney on image 22 of series 2 is identified. This is too small to accurately characterize by CT however statistically represents a renal cortical cyst. The appendix is within normal limits. A moderate in size fat-containing left inguinal hernia is present. No free air, free fluid, or pathologic lymphadenopathy by CT size criteria is identified. The opacified and unopacified bowel is unremarkable. Small fat containing umbilical hernia is present. Procedure Note Adam Howard MD - 04/18/2010 Exam: CT ABDOMEN PELVIS W CONTRAST Date/Time of Exam: Apr 17, 2010 12:32:00 PM History: Inguinal hernia. Contrast: 125 mL intravenous Optiray-240. Comparison: None. Findings: Bibasilar dependent atelectatic change is seen. Subcentimeter hypodensity involving the dome of the liver on image 6 of series 2 is identified. A 1.5 cm indeterminate hypodensity involving the medial segment of the left hepatic lobe on image 10 of series 2 is identified. Subcentimeter hypodensity within the periphery of the anterior segment of the right hepatic lobe on image 18 of series 2 is identified. An ill-defined region of low attenuation anteriorly within the medial segment of the left hepatic lobe adjacent to the falciform ligament is identified. In the absence of known primary malignancy this is most consistent with a region of focal fatty infiltration of the liver/vascular variant. Two additional subcentimeter indeterminate hypodensities of the right hepatic lobe are noted inferiorly too small to accurately characterize by CT. The gallbladder, spleen, adrenal glands, pancreas, and left kidney are unremarkable. Subcentimeter cortical hypodensity involving the lateral aspect of the upper pole of the right kidney on image 22 of series 2 is identified. This is too small to accurately characterize by CT however statistically represents a renal cortical cyst. The appendix is within normal limits. A moderate in size fat-containing left inguinal hernia is present. No free air, free fluid, or pathologic lymphadenopathy by CT size criteria is identified. The opacified and unopacified bowel is unremarkable. Small fat containing umbilical hernia is present. IMPRESSION Impression: 1. Moderate in size fat containing left inguinal hernia and small fat containing umbilical hernia. 2. 1.5 cm indeterminate hypodensity of the left hepatic lobe and multiple subcentimeter hepatic hypodensities too small to accurately characterize by CT. Further evaluation with hepatic MRI with and without contrast could be performed if clinically warranted. 3. Subcentimeter right renal cortical hypodensity too small to accurately characterize by CT however statistically representing renal cortical cysts. caleb - uploaded from [employer] Eduar Barbosa MD CT ORDERABLES Final R esult documented in this encounter Visit Diagnoses Diagnosis Inguinal hernia Inguinal hernia without mention of obstruction or gangrene, unilateral or unspecified, (not specified as recurrent) Inguinal hernia Inguinal hernia without mention of obstruction or gangrene, unilateral or unspecified, (not specified as recurrent) documented in this encounter
--- OUTSIDE RECORDS SUMMARY | 2025-02-21 21:55 | XMS_ITS | Clinical Summary ---
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 Phone Unavailable Primary Care Provider Unavailabl e Allergies Active Allergy Reactions Criticality Noted Date Comments Codeine Nausea and Vomiting Low 03/19/2010 Penicillins Unknown 03/19/2010 Father deathly allergic Active Problems Problem Noted Date Diagnosed Date Inguinal hernia 04/10/2010 Social History Tobacco Use Types Packs/Day Years Used Date Smoking Tobacco: Every Day Cigarettes Alcohol Use Standard Drinks/Week Comments Yes 0 (1 standard drink = 0.6 oz pur e alcohol) Sex and Gender Information Value Date Recorded Sex Assigned at Not on file 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 Gender Identity Not on file Sexual Orientation Not on file Plan of Treatment Health Maintenance Due Date Last Done Comments DTAP/TDAP/TD VACCINES (1 - Tdap) 1996 HEPATITIS B VACCINES (1 of 3 - 19+ 3-dose series) 04/12 COLORECTAL SCREENING 2022 Colorectal Cancer Screening 2022 FIT-DNA Q 3 years 2022 FIT/FOBT Q 1 year 2022 Flex Sig/CT Colonography Q 5 years 2022 INFLUENZA VACCINE (#1) 2025 Medical Devices Implanted Type Area Hair Boiler Device Identifier Shelf Expiration Date Model / Serial / Lot Log [id number] - Mesh Bard Inguinal Hernia - 1 - Mesh Marlex Sheet [id number] Implanted:Qty: 1 on 04/28/2010 Mesh Left: Groin CR [employer] 10/10/2014 [id number] / NA / [id number]
--- OUTSIDE RECORDS SUMMARY | 2025-02-21 21:55 | XMS_ITS | Clinical Summary ---
Author Organization [facility] Address [address] [place] [address] Care Team Providers Care Assistant Mechanic Name Role Phone Unavailable Primary Care Provider Unavailabl e Allergies Active Allergy Reactions Criticality Noted Date Comments Codeine Nausea and Vomiting Low 03/19/2010 Penicillins Unknown 03/19/2010 Father deathly allergic Medications naproxen sodium (ALEVE) 220 mg Oral Tab Take 220 mg by mouth every 4 hours as needed. Active propoxyphene N-acetaminophen (DARVOCET-N 100) 100-650 mg Oral tablet Take 1-2 Tabs by mouth every 6 hours as needed for Pain. 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 Gender Identity Not on file Sexual Orientation Not on file Last Filed Vital Signs Vital Sign Reading Time Taken Comments Blood Pressure 122/62 04/28/2010 6:45 PM CDT Pulse 73 04/28/2010 12:09 PM CDT Temperature 36.2 C (97.2 F) 04/28/2010 6:30 PM CDT Respiratory Rate 16 04/28/2010 6:45 PM CDT Oxygen Saturation 96% 04/28/2010 6:45 PM CDT Inhaled Oxygen Concentration - - Weight 109 kg (240 lb 4.8 oz) 04/28/2010 12:09 P M CDT Height 188 cm (6' 2 ) 04/28/2010 12:09 PM CDT Body Mass Index 30.85 04/28/2010 12:09 PM CDT Plan of Treatment Health Maintenance Due Date Last Done Comments DTAP/TDAP/TD VACCINES (1 - Tdap) 1996 HEPATITIS B VACCINES (1 of 3 - 19+ 3-dose series) 04/12 COLORECTAL SCREENING 2022 Colorectal Cancer Screening 2022 FIT-DNA Q 3 years 2022 FIT/FOBT Q 1 year 2022 Flex Sig/CT Colonography Q 5 years 2022 INFLUENZA VACCINE (#1) 2025 Medical Devices Implanted Type Area Sales Relationship Manager Device Identifier Shelf Expiration Date Model / Serial / Lot Log [id number] - Mesh Bard Inguinal Hernia - 1 - Mesh Marlex Sheet [id number] Implanted:Qty: 1 on 04/28/2010 at [facility] Mesh Left: Groin CR [employer] 10/10/2014 [id number] / NA / [id number] Insurance [employer] JACINDA ZUNIGA [id number] [place] [address] Advance Directives For more information, please contact: [phone] * Full Code (Latest Code Status on File) Date Activated Date Inactivated Comments 04/28/2010 1:53 PM 04/28/2010 9:46 PM * Full Code Date Activated Date Inactivated Comments 04/28/2010 11:31 AM 04/28/2010 1:53 PM
--- OUTSIDE RECORDS SUMMARY | 2025-02-21 21:55 | XMS_ITS | Patient Health Record ---
Author Organization [facility] Address [address] [place], [place] [id number] Care Team Providers Care Physicist [place] Name Role Phone Audi Judge MD Primary Care Provider Unavailmanuel Bass MD, Alvino Unavailable [phone] Primo Harden MD Unavailable Unavailable Allergies Allergen (clinical drug ingredient) Drug/Non Drug Allergy documented on EMR Reaction Allergy Type Onset Date Status codeine codeine Unknown Drug Allergy Active penicillin Unknown Drug Allergy Active Reason For Referral No Information Medications Medication SIG (Take, Route, Fr equency, Duration) Notes Start Date End Date Status metoprolol 50 mg 1 tab orally 2 times a day; Duration: 30 day(s) Active naproxen sodium 220 mg 1 tab orally PRN Active Eden 325 mg-10 mg 1 tab orally Q4H, PRN pain Active Problems Problem Type SNOMED Code ICD Code Onset Dates Problem Status W/U Status Risk Notes Problem Lumbosacral spondylosis without myelopathy (78725476) Lumbosacral spondylosis without myelopathy (721.3) Active confirmed Problem Spasm (26906814) Muscle spasm (728.85) Active confirmed Problem Low back pain (952203305) Low back pain (724.2) Active confirmed Problem Displacement of lumbar intervertebral disc without myelopathy (62353157) Lumbar (w/out myelopathy) intervertebral disc disorder (722.10) Active confirmed Problem Long-term drug therapy (202068005) LONG-TERM USE MEDS NEC (V58.69) Active confirmed r/o substance abuse Problem Anxiety state (908229758) Anxiety State, other, specified: procedure related (300.09) Active confirmed Problem Sacroiliitis (32783320) Sacroiliitis (720.2) Active confirmed Plan Of Treatment No Information Insurance Providers Payer Name Payer Address Payer Phone Subscriber Number Group Number Insured Name Patient Relationship to Insured Coverage Start Date Coverage End Date [place] [employer] [address] [place] [address] [phone] [id number] Deathera Ethan cruz Self - patient is the insured Medical (General) History Medical History History ICD Code Back pain Radiculopathy Surgical History Surgery Date(Month/Year) Hernia repair x 2 Shoulder x 2 Hospitalization History Reason Date(Month/Year)
== END 2025-02-21 18:09 | disposition home or self-care (01) ==
PROVIDERS: Emergency Medicine; Emergency Provider Emergency Medicine
DX: R55 Syncope and collapse (principal); R25.1 Tremor, unspecified; Z79.4 Long term (current) use of insulin; F17.210 Nicotine dependence, cigarettes, uncomplicated; I10 Essential (primary) hypertension; E11.9 Type 2 diabetes mellitus without complications
CPT/HCPCS: 36415; 70450; 71275; 74174; 80053; 81001; 84484; 85025; 87086; 93005; 99285; J7030; J9999

== ENCOUNTER 2025-04-16 12:18 | Outpatient (CLI) | payer OTHER, SELFPAY ==
[2025-04-16 13:37] LABS: Estmated Average Glucose 131; Hemoglobin A1C 6.2 % (4.0-6.0)
[2025-04-16 13:38] LABS: Creatinine Urine, Random 497 mg/dL (39-259); Microalbum Creatinine Ratio Ur 20 mg/dL (0-20)
[2025-04-16 13:42] LABS: Alanine Aminotransferase 14 U/L (0-41); Albumin Level 4.5 g/dL (3.5-5.2); Alkaline Phosphatase 100 U/L (40-130); Anion Gap 20.2 (5-19); Aspartate Amino Transferase 12 U/L (0-40); Blood Urea Nitrogen 25 mg/dL (6-20); Calcium 10.1 mg/dL (8.5-10.5); Carbon Dioxide 25 mmol/L (22-29); Chloride 99 mmol/L (98-107); Cholesterol 161 mg/dL (0-200); Globulin 3.2 g/dL (1.3-4.6); Glucose 135 mg/dL (65-115); HDL Cholesterol 35 mg/dL (60-100); Osmolality Calculated 298 mOsm/kg (285-295); Potassium 3.2 mmol/L (3.5-5.1); Sodium 141 mmol/L (136-145); Total Protein 7.7 g/dL (6.6-8.7); Triglycerides 160 mg/dL (0-150)
[2025-04-16 14:19] LABS: Follicle Stimulating Hormone 4.6 mIU/mL (1.5-12.4)
== END 2025-04-16 12:19 | disposition home or self-care (01) ==
LOC: LAB 12:20
PROVIDERS: Internal Medicine
DX: E78.2 Mixed hyperlipidemia (principal); E11.69 Type 2 diabetes mellitus with other specified complication; E66.9 Obesity, unspecified; N52.03 Combined arterial insufficiency and corporo-venous occlusive erectile dysfunction
CPT/HCPCS: 36415; 80053; 80061; 82044; 82088; 83001; 83002; 83036; 84244; 84402; 84403

== ENCOUNTER 2025-04-18 10:51 | Outpatient (CLI) | payer OTHER, SELFPAY ==
[2025-04-18 12:46] LABS: Creatinine 24 Hour Urine 2271.5 mg/dL (955-2936); Total Volume Urine 2950 ml
== END 2025-04-18 10:52 | disposition home or self-care (01) ==
LOC: LAB 10:53
PROVIDERS: Visit Provider Internal Medicine
DX: E78.2 Mixed hyperlipidemia (principal); E11.69 Type 2 diabetes mellitus with other specified complication; E66.9 Obesity, unspecified
CPT/HCPCS: 82384; 82530; 82570

== ENCOUNTER → 2025-04-23 09:04 | Outpatient (BNVA) | payer OTHER, SELFPAY | PROVIDERS: Visit Provider Internal Medicine | DX: E78.2 Mixed hyperlipidemia (principal); E11.69 Type 2 diabetes mellitus with other specified complication; E66.9 Obesity, unspecified; N52.03 Combined arterial insufficiency and corporo-venous occlusive erectile dysfunction | CPT/HCPCS: 36415; 80048 ==

== ENCOUNTER 2025-05-03 09:46 | Outpatient (CLI) | payer OTHER, SELFPAY ==
[2025-05-03 10:02] VITALS: BMI 30.8
--- NOTE | 2025-05-03 10:05 | ECG_ITS ---
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 Baseline heart rate was 81 beats per minute. Baseline blood pressure was 177/114 millimeters of mercury. Target heart rate was 172 beats per minute. Maximum heart rate achieved was 152, which was 88% of the target heart rate. Maximum blood pressure was 209/117 millimeters of mercury. Total exercise time was 6 minutes 40 seconds. Maximum METs achieved was 9.6, maximum VO2 was 33. The reason for ending the test was maximum effort achieved. The patient complained of shortness of breath during the stress test, which then resolved at the end of the test. ELECTROCARDIOGRAM: BASELINE: Showed sinus rhythm, normal axis, no significant ST-T changes at the baseline noted. EXERCISE: At the peak exercise level, no significant ST-T changes suggestive of ischemia noted. RECOVERY: During the recovery period, heart rate dropped appropriately. No significant ST-T changes in the recovery suggestive of ischemia noted. CONCLUSION: 1. Exercise capacity average. 2. Heart rate response was appropriate. 3. Blood pressure response was hypertensive. 4. Symptoms not suggestive of ischemia. 5. Electrocardiogram portion of the stress test was not suggestive of ischemia. 6. Nuclear scan will be documented separately. Electronically Signed On 05-06-2025 22:52:36 CDT by ONI RYAN [email or web address]
--- NOTE | 2025-05-03 10:05 | NMCV_ITS ---
NM allan perf SPECT r/s* [id number] Ethan Nickerson Age: 50 Gender: M : 1975 Exam Date: 05/03/2025 10:40 Ordering Phys: Ignacio Banuelos MD ([email or web address]) Technologist: ADAM Payne Exam Location: [facility] Indications: cp STRESS TEST Please see separate stress test report in [facility] for full findings IMAGE PROTOCOL Rest/Stress 1 Exercise Day Radiopharmaceutical Dose (mCi) Administration Site Administered by Rest: Tc-99m 10.7 IV ADAM Payne Stress:Tc-99m 32.8 IV ADAM Payne Rest: 05/03/2025 60 Discovery 630 Stress: 05/03/2025 15 Discovery 630 Radiopharmaceutical was injected at 85 % maximum heart rate. Images obtained in supine and prone position. SPECT RESULTS Technical Quality: Good Raw Data Analysis: Image Corrections: Summed Stress Score: 0 Summed Rest Score: 0 Summed Difference Score: 0 PERFUSION FINDINGS SPECT images demonstrate homogeneous tracer distribution throughout the myocardium. FUNCTIONAL RESULTS (calculated via Gated SPECT) Stress Image LV EF (%): 60 Stress EDV (mL):121 TID: 0.93 Stress ESV (mL):49 FUNCTIONAL FINDINGS: There is normal left ventricular systolic function. IMPRESSIONS Myocardial perfusion imaging is normal. Nora Olvera MD (Electronically Signed) Final Date: 03 May 2025 19:15 S
[2025-05-03] MEDS: metoprolol tartrate 1 mg/1 mL SDV 5 mL 5 MG IV (11:23)
[2025-05-03 11:43] VITALS: BP 176/112; PULSE 92
== END 2025-05-03 09:47 | disposition home or self-care (01) ==
LOC: CDL 09:47
PROVIDERS: Visit Provider Internal Medicine Cardiovascular Disease
DX: R07.9 Chest pain, unspecified (principal)
CPT/HCPCS: 36415; 78452; 93017; 96374; A9500; J3490